=== PATIENT | male | born 1975 | race Hispanic/Latino ===

== ENCOUNTER 2019-07-16 16:26 | Emergency (ER) | payer OTHER, SELFPAY ==
--- NOTE | ~2019-07-16 | XR_ITS ---
XR chest 2V 07/16/2019 17:36 Indication: History of pulmonary embolism Procedure: PA and lateral views of the chest Comparison: Comparison to multiple prior studies sequentially, with oldest reviewed study dated 04/24. Findings: There is bibasilar airspace disease. Heart size normal. No pleural effusion or pneumothorax . No acute osseous abnormality. Impression: 1: Bibasilar airspace disease which may represent at pneumonia, atelectasis and/or edema. Reviewed, dictated and finalized at location A. Impression: 1: Bibasilar airspace disease which may represent at pneumonia, atelectasis and /or edema.
--- NOTE | ~2019-07-16 | CT_ITS ---
EXAMINATION: CTA chest PE protocol DATE: 07/16/2019 18:45 CDT INDICATION: Chest pain TECHNIQUE: Computed tomographic angiography (CTA) of the chest was performed with 100 mL Omnipaque-35 0 intravenous contrast. The dose-length product was 2248.02 mGy-cm. Maximum intensity projection 3D-r econstructions of the aorta and other arteries were constructed by the technologist on a separate wor kstation. Automated exposure control and iterative reconstruction technique were employed. COMPARISON: CT dated 11/05/2017 FINDINGS: The study is technically limited for evaluation of peripheral pulmonary arteries. No centra l pulmonary embolism is identified. Main pulmonary arteries are enlarged, consistent with pulmonary h ypertension. No significant pleural or pericardial effusion. Heart size is normal. Stable nonenlarged mediastinal lymph nodes, likely reactive. There are stable upper lobe nodules measuring 4 mm or less, predominantly upper lobe, likely benign. There is focal left lower lobe consolidation, images 109-113, atelectasis versus pneumonia. Mild emph ysema. There is dependent atelectasis. IMPRESSION: 1. Study technically limited by contrast bolus timing for evaluation of peripheral pulmonary arteries . No large central pulmonary embolism identified. 2: Stable small bilateral pulmonary nodules measuring 4 mm or less, likely benign. 3: Mild emphysema. 4: Focal left lower lobe consolidation may represent atelectasis or developing pneumonia. Reviewed, dictated and finalized at location A. IMPRESSION: 1. Study technically limited by contrast bolus timing for evaluation of periphe ral pulmonary arteries. No large central pulmonary embolism identified. 2: Stable small bilateral pulmonary nodules measuring 4 mm or less, likely flores gn. 3: Mild emphysema. 4: Focal left lower lobe consolidation may represent atelectasis or developing pneumonia.
[2019-07-16 16:33] VITALS: BP 156/107; PULSE 113; RESP 24; TEMP 37.6; O2SAT 87
--- NOTE | 2019-07-16 16:45 | ECG_ITS ---
Measurements Intervals [place] Rate: 106 P: 78 MS: 185 QRS: 29 QRSD: 123 T: 47 QT: 354 QTc: 472 Interpretive Statements SINUS TACHYCARDIA INTRAVENTRICULAR CONDUCTION DELAY DELAYED PRECORDIAL R/S TRANSITION ABNORMAL ECG Electronically Signed On 07-17-2019 7:40:44 CDT by Ben Nam D.O.
--- NOTE | 2019-07-16 16:47 | ED.SOB ---
HPI - SOB/Dyspnea General Chief Complaint: Shortness of Breath/Dyspnea Stated Complaint: more sob that usual Time Seen by Provider: 07/16/19 16:32 Source: patient Mode of arrival: ambulatory Limitations: no limitations History of Present Illness HPI Narrative: 43 yo morbidly obese male smoker with h/o COPD , PE, DVT on warfarin who presents with c/o worsening sob over the past week. Patient states he has chronic sob but it has worsening over the past couple of weeks. He also states his INR was been fluctuating even though he is taking his warfarin consistently. He has cough with some yellow phlegm . He denies fever , chills or sore throat. He reports constant chronic chest pain from GERD. He denies any change or worsening pain. He denies known contact with person with COVID. MD elicited complaint: shortness of breath, cough and chest pain (chronic) Pertinent past history: COPD, PE and DVT Onset (ago): week(s) Related Data Home Medications Medication Instructions Recorded Confirmed albuterol sulfate 90 mcg/actuation 2 puff INHALATION Q4H PRN gm 05/14/19 06/07/19 aerosol inhaler chlorthalidone 25 mg tablet 25 mg PO DAILY 05/14/19 06/07/19 lisinopril 20 mg tablet 20 mg PO DAILY 05/14/19 06/07/19 meloxicam 7.5 mg tablet 7.5 mg PO Q2D tablet 05/14/19 06/07/19 ranitidine HCl 150 mg capsule 150 mg PO BID cap 05/14/19 06/07/19 simvastatin 20 mg tablet 20 mg PO DAILY 05/14/19 06/07/19 warfarin 10 mg tablet 10 mg PO DAILY 05/14/19 06/07/19 Allergies Allergy/AdvReac Type Severity Reaction Status Date / Time No Known Drug Allergies Allergy Unknown Verified 03/25/18 20:37 Review of Systems Review of Systems: All systems reviewed & are unremarkable except as noted in HPI and below Constitutional: Constitutional: Denies chills, Denies fever(s) and Denies weakness ENT: Denies dizziness and Reports nasal congestion Cardiovascular: Cardiovascular: Reports chest pain and Denies rapid heart rate Respiratory: Respiratory: Reports cough and Reports dyspnea Gastrointestinal: Gastrointestinal: Denies abdominal pain and Denies nausea PMFSH Past Medical History Medical History Chest pain in adult Chronic obstructive pulmonary disease, unspecified Dyslipidemia Essential hypertension Lung nodule CORDELL on CPAP Other pulmonary embolism without acute cor pulmonale Pulmonary hypertension Pulmonary nodules Family History Family History (Updated 08/19/17 @ 09:01 by DOCTOR UNKNOWN) Father Diabetes mellitus Family history of diabetes mellitus in first degree relative Grandparent Family history of malignant neoplasm Other Cerebrovascular accident Family history of cardiovascular disease Family history of kidney disease Hypertension Social History Social History Smoking status: Current every day smoker Alcohol intake: never Gender identity (if verbalized by the patient): Male Exam Narrative: Exam Narrative: GENERAL: Well-appearing, well-nourished, and in no acute distress. morbidly obese HEAD: Normocephalic, atraumatic EYES: PERRLA and EOMI, THROAT:Mucous membranes moist, NECK: Supple, without lymphadenopathy or mass HEART: Regular rate and rhythm. No murmur heard. Normal peripheral pulses. ABDOMEN: Soft, nontender, nondistended, normal active bowel sounds. No masses. No rebound or guarding, No organomegaly. EXTREMITIES: No edema, normal strength with full range of motion. SKIN: Warm, dry, normal color without rash NEURO: Alert and oriented x3. CN 2-12 grossly intact. No focal deficits. PSYCH: Normal mood and affect. Resp: Effort & Inspection: normal respiratory effort Auscultation: wheezes scattered wheezes and diminished lung sounds diffuse Course Reevaluation(s) Reevaluation #1: Patient states he feels better. He is concerned he may have PE due to fluctuating INR. CTA to be performed. Date: 07/16/19 Time: 18:20 Aubrie
[2019-07-16 16:58] LABS: Basophils Absolute Auto 0.1 K/mm3 (0.0-0.1); Basophils Percent Auto 0.5 % (0.2-1.2); Eosinophils Absolute Auto 0.6 K/mm3 (0-0.3); Eosinophils Percent Auto 5.1 % (0-4.4); Hematocrit 56.3 % (42.0-52.0); Hemoglobin 19.1 g/dL (14.0-18.0); Immature Granulocyte Absolute 0.06 K/mm3 (0.00-0.031); Immature Granulocyte Percent A 0.6 % (0-0.5); Lymphocytes Absolute Auto 2.81 K/mm3 (0.9-3.2); Lymphocytes Percent Auto 26.3 % (18.3-44.2); Mean Corpuscular HGB Conc 33.9 g/dl (32-36); Mean Corpuscular Hemoglobin 32.7 pg (26-34); Mean Corpuscular Volume 96.4 fl (80-100); Mean Platelet Volume 10.5 fl (7.4-10.4); Monocytes Absolute Auto 0.9 K/mm3 (0.1-0.6); Monocytes Percent Auto 8.1 % (2.6-8.5); Neutrophils Absolute Auto 6.3 K/mm3 (1.3-6.7); Neutrophils Percent Auto 59.4 % (45.5-73.1); Platelet Count Result 138 k/mm3 (150-375); Red Blood Count 5.84 M/mm3 (4.6-6.20); Red Cell Distribution Width 13.5 % (11.5-14.5); White Blood Count 10.7 K/mm3 (4.5-10.0)
[2019-07-16 17:07] LABS: INR 3.8; Partial Thromboplastin Time 41.3 SECONDS (22.3-36.8); Prothrombin Time 36.5 Seconds (11.1-14.7)
[2019-07-16] MEDS: ALBUTEROL SULFATE (*SP) AEROSOL 1 PUFF 4 PUFF INHALATION (17:12)
[2019-07-16 17:14] LABS: Alveolar/Arterial O2 Gradient 37.3 mmHg; Base Excess ABG 2.4 mEq/l (+/-2.0); Fractional Inspired Oxygen 21 %; HCO3 ABG 28.5 mEq/l (22.0-26.0); Methemoglobin ABG 0.4 %THb (0-1.5); Oxygen Content ABG 21.7 %vol (16.0-22.0); Oxygen Saturation ABG 87.8 % (95.0-100.0); Oxyhemoglobin 81.2 % THb (90.0-100.0); PCO2 ABG 48.4 mmHg (35.0-45.0); PO2 ABG 54.5 mmHg (80.0-100.0); Reduced Hemoglobin 8.2 %THb (0-5.0); Total Hemoglobin 19.1 g/dL (12.0-18.0); pH ABG 7.388 (7.350-7.450)
[2019-07-16 17:16] LABS: Carboxyhemoglobin 10.2 % THb (0-2.0); Device ROOM AIR; Modified Allen's Test Pass; Site Drawn LEFT RADIAL
[2019-07-16 17:34] LABS: Alanine Aminotransferase 21 U/L (4-50); Albumin Level 4.2 g/dL (3.5-5.1); Alkaline Phosphatase 107 U/L (38-126); Aspartate Amino Transferase 26 U/L (17-59); Bilirubin,Total 0.6 mg/dL (0.2-1.3); Blood Urea Nitrogen 19 mg/dL (9-20); Carbon Dioxide 31 mmol/L (22-30); Chloride 105 mmol/L (98-107); Estimated CRCL calculation 256 ml/min; Estimated Glomerular Filt Rate > 60; Glucose 120 mg/dL (75-110); NT Pro B Type Natriuretic Pept 50 PG/ML (5-100); Sodium 144 mmol/L (137-145); Troponin I < 0.012 ng/mL (0.000-0.034)
--- NOTE | 2019-07-16 17:34 | PC.NURSE ---
Pt states he has had increased SOB x 1 wk. Pt states he has cough that he always has. Pt states he has hx of PE and DVT. Pt states he has COPD. Pt has increased work of breathing. Pt using accessory muscles. Pt tachypneic. Pt breathing started to get ease while getting triaged. Pt has call light in reach
[2019-07-16] MEDS: predniSONE 20 MG TABLET 60 MG PO (17:39)
[2019-07-16 17:41] LABS: Potassium 3.7 mmol/L (3.4-5.0)
[2019-07-16 18:43] VITALS: BP 158/95; PULSE 98; RESP 20; O2SAT 90
[2019-07-16 18:45] VITALS: PULSE 96; RESP 26; O2SAT 91
--- NOTE | 2019-07-16 19:11 | PC.NURSE ---
Assumed care of patient from KYLEIGH Elias. Pt ambulatory to restroom with a steady gait at this time.
[2019-07-16] MEDS: AZITHROMYCIN 250 MG TABLET 500 MG PO (19:22)
[2019-07-16 19:50] VITALS: BP 163/86; PULSE 99; RESP 20; O2SAT 99
== END 2019-07-16 19:53 | disposition home or self-care (01) ==
PROVIDERS: Emergency Provider General Practice; PCP Family Medicine
DX: J44.9 Chronic obstructive pulmonary disease, unspecified (principal); J18.1 Lobar pneumonia, unspecified organism; Z86.711 Personal history of pulmonary embolism; Z86.718 Personal history of other venous thrombosis and embolism; Z79.01 Long term (current) use of anticoagulants; R00.0 Tachycardia, unspecified; I45.9 Conduction disorder, unspecified; R91.1 Solitary pulmonary nodule
CPT/HCPCS: 36415; 36600; 71046; 71275; 80053; 82375; 82805; 83050; 83880; 84484; 85025; 85610; 85730; 87804; 93005; 96365; 99284; A9270; J0696; J7512; Q9967

== ENCOUNTER 2019-08-06 15:26 | Emergency (ER) | payer OTHER, SELFPAY ==
--- NOTE | ~2019-08-06 | CT_ITS ---
EXAMINATION: CTA chest PE protocol DATE: 08/06/2019 18:25 CDT INDICATION: Shortness of breath. Worsening cough. Pneumonia. TECHNIQUE: Computed tomographic angiography (CTA) of the chest was performed with 100 mL Omnipaque-35 0 intravenous contrast. The dose-length product was 1127.53 mGy-cm. Maximum intensity projection 3D-r econstructions of the aorta and other arteries were constructed by the technologist on a separate wor kstation. Automated exposure control and iterative reconstruction technique were employed. COMPARISON: CT dated 07/16/2019 FINDINGS: Study is technically adequate without evidence for pulmonary embolism. Left lower lobe subs egmental pulmonary artery evaluation limited by motion artifact. No significant pleural or pericardia l effusion. Heart size normal. No thoracic lymphadenopathy. No focal pneumonia. There is dependent at electasis. There is mild emphysema. No pneumothorax. 5 mm right upper lobe nodule, image 26, unchange d. 4-5 mm right upper lobe nodule, image 29, unchanged. There are smaller nodules in the upper lobes which are unchanged. IMPRESSION: 1. No evidence for pulmonary embolism. No acute cardiopulmonary disease. 2: Stable small pulmonary nodules measuring 5 mm or less, likely benign. Reviewed, dictated and finalized at location A.
[2019-08-06 15:32] VITALS: BP 154/90; PULSE 114; RESP 22; O2SAT 89
[2019-08-06 15:36] VITALS: PULSE 114
[2019-08-06 15:39] VITALS: O2SAT 94
--- NOTE | 2019-08-06 15:40 | PC.NURSE ---
pt placed on 2 lpm nasal cannula for o2 sat 89 % on room air
--- NOTE | 2019-08-06 16:08 | ED.GENADULT ---
HPI - General Adult General Chief complaint: Shortness of Breath/Dyspnea Stated complaint: dx with pneumonia 2 weeks ago Time Seen by Provider: 08/06/19 15:36 History of Present Illness HPI narrative: Patient is a 43 YO male with who comes to ED with c/o WILSON for the past 3 days. Admits to non-productive cough. No fevers. No change in chronic LE edema. No chest pain. Used inhaler this morning with no relief. Admits to previous history of similar symptoms due to PNA. Related Data Home Medications Medication Instructions Recorded Confirmed albuterol sulfate 90 mcg/actuation 2 puff INHALATION Q4H PRN gm 05/14/19 06/07/19 aerosol inhaler chlorthalidone 25 mg tablet 25 mg PO DAILY 05/14/19 06/07/19 lisinopril 20 mg tablet 20 mg PO DAILY 05/14/19 06/07/19 meloxicam 7.5 mg tablet 7.5 mg PO Q2D tablet 05/14/19 06/07/19 ranitidine HCl 150 mg capsule 150 mg PO BID cap 05/14/19 06/07/19 simvastatin 20 mg tablet 20 mg PO DAILY 05/14/19 06/07/19 warfarin 10 mg tablet 10 mg PO DAILY 05/14/19 06/07/19 Allergies Allergy/AdvReac Type Severity Reaction Status Date / Time No Known Allergies Allergy Verified 08/06/19 15:41 Review of Systems Review of Systems: Narrative: Does have hx of blood clots. On warfarin. recent INR was 1.2 per patient All systems reviewed & are unremarkable except as noted in HPI and below PMFSH Past Medical History Medical History Chest pain in adult Chronic obstructive pulmonary disease, unspecified Dyslipidemia Essential hypertension Lung nodule CORDELL on CPAP Other pulmonary embolism without acute cor pulmonale Pulmonary hypertension Pulmonary nodules Family History Family History Father Diabetes mellitus Family history of diabetes mellitus in first degree relative Grandparent Family history of malignant neoplasm Other Cerebrovascular accident Family history of cardiovascular disease Family history of kidney disease Hypertension Social History Social History Smoking status: Current every day smoker Alcohol intake: never Gender identity (if verbalized by the patient): Male Exam Const: General: no acute distress and alert Orientation/consciousness: patient oriented x3 HENMT: Head: normal to inspection Eyes: Pupils: Equal, round and reactive pupils present Neck: Neck: normal visual inspection Chest: Chest palpation & inspection: normal inspection of the chest Resp: Effort & Inspection: not labored Auscultation: wheezes and diminished lung sounds Cardio: Rate: tachycardic GI: GI Palp: No Soft to palpation and No Tenderness to palpation present (GI) Skin: General skin exam: normal color Neuro: General: patient oriented x3 and moves all extremities Extrem: General: edema (2+ PE in B LE) Course Vital Signs Vital signs: Vital Signs Pulse Rate 114 H 08/06/19 15:32 Respiratory Rate 22 H 08/06/19 15:32 Blood Pressure 154/90 H 08/06/19 15:32 Pulse Oximetry 89 L 08/06/19 15:32 Pulse Rate 87 08/06/19 17:49 Respiratory Rate 19 08/06/19 17:49 Blood Pressure 115/92 H 08/06/19 17:49 Pulse Oximetry 91 08/06/19 17:49 Medical Decision Making MDM Narrative Medical decision making narrative: 1911 Workup consistent with COPD exacerbation. Had low O2 sats on arrival and was placed on 2L NC. I took him off O2 for the last 20 mintues and monitored him and maintained O2 levels at or above 90. Patient requesting to be discharged which I feel is reasonable. Discussed strict return to ED precautions with worsening SOB, patient agreeable. Vital Signs Vital Signs: Vital Signs Pulse Rate 114 H 08/06/19 15:32 Respiratory Rate 22 H 08/06/19 15:32 Blood Pressure 154/90 H 08/06/19 15:32 Pulse Oximetry 89 L 08/06/19 15:32 Pulse Rate 87 08/06/19 17:49 Respiratory
--- NOTE | 2019-08-06 16:27 | ECG_ITS ---
Measurements Intervals [place] Rate: 96 P: 84 GA: 196 QRS: 39 QRSD: 123 T: 39 QT: 358 QTc: 453 Interpretive Statements SINUS RHYTHM INTRAVENTRICULAR CONDUCTION DELAY CANNOT RULE OUT SEPTAL INFARCT, AGE INDETERMINATE BASELINE WANDER- II, III ABNORMAL ECG Electronically Signed On 08-07-2019 7:11:20 CDT by Ben Nam D.O.
[2019-08-06] MEDS: methylPREDNISolone SOD SUCC 125 MG VIAL IV PUSH (16:39)
[2019-08-06 16:44] LABS: Basophils Percent Auto 0.4 % (0.2-1.2); Eosinophils Absolute Auto 0.8 K/mm3 (0-0.3); Eosinophils Percent Auto 8.1 % (0-4.4); Hematocrit 53.5 % (42.0-52.0); Hemoglobin 18.4 g/dL (14.0-18.0); Immature Granulocyte Absolute 0.06 K/mm3 (0.00-0.031); Immature Granulocyte Percent A 0.6 % (0-0.5); Lymphocytes Absolute Auto 1.85 K/mm3 (0.9-3.2); Lymphocytes Percent Auto 18.4 % (18.3-44.2); Mean Corpuscular HGB Conc 34.4 g/dl (32-36); Mean Corpuscular Hemoglobin 33.5 pg (26-34); Mean Corpuscular Volume 97.4 fl (80-100); Monocytes Absolute Auto 0.7 K/mm3 (0.1-0.6); Monocytes Percent Auto 6.7 % (2.6-8.5); Neutrophils Absolute Auto 6.6 K/mm3 (1.3-6.7); Neutrophils Percent Auto 65.8 % (45.5-73.1); Platelet Count Result 145 k/mm3 (150-375); Red Blood Count 5.49 M/mm3 (4.6-6.20); Red Cell Distribution Width 13.9 % (11.5-14.5)
[2019-08-06] MEDS: ALBUTEROL SULFATE NEB 2.5 MG/0.5 ML INH 5 MG INHALATION (16:48)
[2019-08-06 16:51] VITALS: PULSE 98; RESP 20
[2019-08-06 16:59] LABS: Alanine Aminotransferase 29 U/L (4-50); Albumin Level 4.1 g/dL (3.5-5.1); Alkaline Phosphatase 100 U/L (38-126); Aspartate Amino Transferase 24 U/L (17-59); Bilirubin,Total 0.9 mg/dL (0.2-1.3); Blood Urea Nitrogen 20 mg/dL (9-20); Calcium 9.2 mg/dL (8.4-10.2); Carbon Dioxide 32 mmol/L (22-30); Chloride 101 mmol/L (98-107); Estimated CRCL calculation 257 ml/min; Estimated Glomerular Filt Rate > 60; Glucose 112 mg/dL (75-110); Potassium 3.8 mmol/L (3.4-5.0); Sodium 140 mmol/L (137-145)
[2019-08-06 17:06] LABS: NT Pro B Type Natriuretic Pept 40 PG/ML (5-100)
[2019-08-06 17:49] VITALS: BP 115/92; PULSE 87; RESP 19; O2SAT 91
== END 2019-08-06 19:48 | disposition home or self-care (01) ==
PROVIDERS: Physician Assistant Medical; PCP Family Medicine
DX: J44.1 Chronic obstructive pulmonary disease with (acute) exacerbation (principal); E78.5 Hyperlipidemia, unspecified; I10 Essential (primary) hypertension; G47.33 Obstructive sleep apnea (adult) (pediatric); I27.20 Pulmonary hypertension, unspecified; F17.200 Nicotine dependence, unspecified, uncomplicated; Z79.01 Long term (current) use of anticoagulants; I45.9 Conduction disorder, unspecified; R94.31 Abnormal electrocardiogram [ECG] [EKG]
CPT/HCPCS: 36415; 71275; 80053; 83880; 85025; 93005; 94640; 96374; 99284; J2930; Q9967

== ENCOUNTER 2019-12-31 12:54 | Outpatient (CLI) | payer OTHER, SELFPAY ==
[2019-12-31] VITALS (7 sets, daily range): PULSE 118–138; O2SAT 84–91
--- NOTE | 2019-12-31 13:28 | HOMEO2EVAL ---
Home Oxygen Evaluation RC: Home Oxygen (O2) Evaluation Start: 12/31/19 13:24 Freq: Status: Active Protocol: RPE Activity Type Activity Date Activity User E-Sign Co-Sign Detail Recorded Client Recorded Date Recorded By Document 12/31/19 12:40 [email or web address] 12/31/19 13:28 DJO Document 12/31/19 12:45 [email or web address] [email or web address] 12/31/19 13:28 DJO Document 12/31/19 12:50 [email or web address] [email or web address] 12/31/19 13:28 DJO Document 12/31/19 12:55 [email or web address] [email or web address] 12/31/19 13:28 DJO Document 12/31/19 13:00 [email or web address] [email or web address] 12/31/19 13:28 DJO Document 12/31/19 13:05 [email or web address] [email or web address] 12/31/19 13:28 DJO Document 12/31/19 13:15 [email or web address] [email or web address] 12/31/19 13:28 DJO 12/31/19 12/31/19 12/31/19 12:40 12:45 12:50 Home O2 Evaluation Test Phase Resting Exercise Exercise Oxygen Delivery Room Air Room Air Nasal Cannula Oxygen Flow Rate (L/min) 1 Pulse Oximetry (90-100 %) 91 84 L 85 L Pulse Rate (60-100 beats/min) 118 H 135 H 134 H Activity Tolerance Ambulation Distance (feet) Treatment Charges O2 Evaluation 12/31/19 12/31/19 12/31/19 12:55 13:00 13:05 Home O2 Evaluation Test Phase Exercise Exercise Exercise Oxygen Delivery Nasal Cannula Nasal Cannula Nasal Cannula Oxygen Flow Rate (L/min) 2 3 4 Pulse Oximetry (90-100 %) 85 L 87 L 90 Pulse Rate (60-100 beats/min) 132 H 138 H 129 H Activity Tolerance Fair Ambulation Distance (feet) 1,000 Treatment Charges 12/31/19 13:15 Home O2 Evaluation Test Phase Resting Oxygen Delivery Room Air Oxygen Flow Rate (L/min) Pulse Oximetry (90-100 %) 91 Pulse Rate (60-100 beats/min) 120 H Activity Tolerance Ambulation Distance (feet) Treatment Charges
== END 2019-12-31 12:55 | disposition home or self-care (01) ==
LOC: ANHPFT 12:55
PROVIDERS: PCP Family Medicine; Visit Provider Internal Medicine Critical Care Medicine
DX: R09.02 Hypoxemia (principal)
CPT/HCPCS: 94618

== ENCOUNTER 2020-03-03 02:47 | Emergency (ER) | payer OTHER, SELFPAY ==
[2020-03-03] VITALS (9 sets, daily range): BP systolic 111–141; BP diastolic 49–108; PULSE 101–139; RESP 21–28; TEMP 36.9; O2SAT 90–92
--- NOTE | ~2020-03-03 | XR_ITS ---
XR chest 1V portable DATE: 03/03/2020 03:30 INDICATION: Palpitations TECHNIQUE: Portable upright AP views on 03/03/2020 at 1530 and 1531 hours COMPARISON: 07/15/2021 view chest 08/06/2019 CT pulmonary scan FINDINGS: Heart size appears within normal limits. Bilateral hyperinflation. No pulmonary infiltrate or consolidation, pleural effusion or pulmonary vas cular congestion or pneumothorax is detected. IMPRESSION: No active disease Reviewed, dictated and finalized at location A. MEDICAL AIDE IMPRESSION: No active disease
[2020-03-03] MEDS: ADENOSINE IV SOLN 6 MG/2 ML VIAL IV PUSH (03:17)
[2020-03-03 03:24] LABS: Basophils Percent Auto 0.4 % (0.2-1.2); Eosinophils Absolute Auto 0.3 K/mm3 (0-0.3); Eosinophils Percent Auto 3.2 % (0-4.4); Hematocrit 55.6 % (42.0-52.0); Hemoglobin 20.6 g/dL (14.0-18.0); Immature Granulocyte Absolute 0.04 K/mm3 (0.00-0.031); Immature Granulocyte Percent A 0.5 % (0-0.5); Lymphocytes Absolute Auto 2.09 K/mm3 (0.9-3.2); Lymphocytes Percent Auto 25.9 % (18.3-44.2); Mean Corpuscular HGB Conc 37.1 g/dl (32-36); Mean Corpuscular Hemoglobin 34.8 pg (26-34); Mean Corpuscular Volume 93.9 fl (80-100); Mean Platelet Volume 10.5 fl (7.4-10.4); Monocytes Absolute Auto 0.8 K/mm3 (0.1-0.6); Monocytes Percent Auto 9.7 % (2.6-8.5); Neutrophils Absolute Auto 4.9 K/mm3 (1.3-6.7); Neutrophils Percent Auto 60.3 % (45.5-73.1); Platelet Count Result 157 k/mm3 (150-375); Red Blood Count 5.92 M/mm3 (4.6-6.20); Red Cell Distribution Width 14.3 % (11.5-14.5); White Blood Count 8.1 K/mm3 (4.5-10.0)
--- NOTE | 2020-03-03 03:33 | ED.GENADULT ---
HPI - General Adult General Chief complaint: Arrhythmia/Palpitations Stated complaint: elvated HR History of Present Illness HPI narrative: Patient's 44-year-old gentleman who presents the emergency department with chief complaint of palpitations. Patient reports he has history of COPD and was over at a family member's house today. Patient states this evening he noticed his heart started beating fast and it would not slow down. Patient denies chest pain denies shortness of breath denies focal neurological deficit. Patient denies syncope. Related Data Home Medications Medication Instructions Recorded Confirmed chlorthalidone 25 mg tablet 25 mg PO DAILY 05/14/19 01/25/20 lisinopril 20 mg tablet 20 mg PO DAILY 05/14/19 01/25/20 meloxicam 7.5 mg tablet 7.5 mg PO Q2D tablet 05/14/19 01/25/20 simvastatin 20 mg tablet 20 mg PO DAILY 05/14/19 01/25/20 warfarin 10 mg tablet 10 mg PO DAILY 05/14/19 01/25/20 ipratropium 0.5 mg-albuterol 3 mg 3 ml INHALATION QID PRN 10/01/19 01/25/20 (2.5 mg base)/3 mL nebulization soln omeprazole 20 mg capsule,delayed 20 mg PO DAILY 12/31/19 01/25/20 release Allergies Allergy/AdvReac Type Severity Reaction Status Date / Time No Known Allergies Allergy Verified 03/03/20 03:06 Review of Systems Review of Systems: Narrative: CONSTITUTIONAL: Denies fever, chills, or sweats. EYES: Denies visual changes, redness, or discharge. ENT: Denies rhinorrhea, congestion, sore throat, or otalgia. CARDIOVASCULAR: Denies chest pain, palpitations, or edema. RESPIRATORY: Denies cough or dyspnea. GASTROINTESTINAL: Denies abdominal pain, nausea, vomiting, or diarrhea. GENITOURINARY: Denies dysuria or hematuria. SKIN: Denies rash or itching. MUSCULOSKELETAL: Denies back pain, joint pain, or myalgia. NEUROLOGIC: Denies headache, numbness, or weakness. PSYCHIATRIC: Denies anxiety or depression. A 10 system review of systems was completed on the patient and is negative except for what is stated in the HPI. Nursing and ancillary documentation was reviewed. [facility] Past Medical History Medical History Chest pain in adult Chronic obstructive pulmonary disease, unspecified Dyslipidemia Essential hypertension Lung nodule CORDELL on CPAP Other pulmonary embolism without acute cor pulmonale Pulmonary hypertension Pulmonary nodules Family History Family History Father Diabetes mellitus Family history of diabetes mellitus in first degree relative Grandparent Family history of malignant neoplasm Other Cerebrovascular accident Family history of cardiovascular disease Family history of kidney disease Hypertension Social History Social History Smoking packs per day: 1 Smoking cigarettes per day: 20.0 Years smoked: 15 Smoking pack-years: 15.00 Smoking status: Current every day smoker Alcohol intake: never Gender identity (if verbalized by the patient): Male Sexual Orientation (if Verbalized by the Patient): Straight or Heterosexual Exam Narrative: Exam Narrative: GENERAL: Well-appearing, well-nourished, and in no acute distress. HEAD: Normocephalic, atraumatic. EYES: PERRLA and EOMI. ENT: Nares clear, no rhinorrhea or epistaxis. Mucous membranes moist. NECK: Supple. CHEST: Clear to auscultation. No respiratory distress. HEART: Regular rate and rhythm. No murmur heard. Normal peripheral pulses. ABDOMEN: Soft, nontender, nondistended, normal active bowel sounds. EXTREMITIES: Normal range of motion. No edema. SKIN: Warm, dry, no rash. NEURO: No focal deficits. Alert and oriented x3. PSYCH: Normal mood and affect. Course Course Emergency Course: Initial EKG showed a supraventricular tachycardia with a rate of [address] elevation or ST depression Given the patient showed the possibility
[2020-03-03 03:35] LABS: INR 2.5; Prothrombin Time 27.4 Seconds (11.1-14.7)
[2020-03-03 03:37] LABS: Alanine Aminotransferase 25 U/L (4-50); Albumin Level 3.9 g/dL (3.5-5.1); Alkaline Phosphatase 117 U/L (38-126); Anion Gap 8 mmol/L (8-16); Aspartate Amino Transferase 28 U/L (17-59); Bilirubin,Total 0.5 mg/dL (0.2-1.3); Blood Urea Nitrogen 21 mg/dL (9-20); Calcium 8.9 mg/dL (8.4-10.2); Carbon Dioxide 29 mmol/L (22-30); Chloride 104 mmol/L (98-107); Estimated CRCL calculation 203 ml/min; Estimated Glomerular Filt Rate > 60; Glucose 121 mg/dL (75-110); Sodium 141 mmol/L (137-145)
--- NOTE | 2020-03-03 03:52 | ECG_ITS ---
Measurements Intervals [place] Rate: 136 P: [place]: 0 QRS: 181 QRSD: 106 T: 39 QT: 304 QTc: 458 Interpretive Statements SUPRAVENTRICULAR TACHYCARDIA, CONSIDER ATRIAL TACHYCARDIA INCOMPLETE RIGHT BUNDLE BRANCH BLOCK BORDERLINE R WAVE PROGRESSION, ANTERIOR LEADS BASELINE ARTIFACT- I, II, III, AVL, AVF ABNORMAL ECG Electronically Signed On 03-03-2020 8:09:27 CHIEF CUSTOMER OFFICER by Ben Nam D.O.
--- NOTE | 2020-03-03 03:53 | PC.NURSE ---
I did not obtain the EKG on this pt. but documented the intervention.
[2020-03-03 04:09] LABS: Magnesium 2.1 mg/dL (1.6-2.3); NT Pro B Type Natriuretic Pept 66 PG/ML (5-100); Troponin I < 0.012 ng/mL (0.000-0.034)
== END 2020-03-03 04:50 | disposition home or self-care (01) ==
PROVIDERS: Emergency Provider Emergency Medicine; PCP Family Medicine
DX: I47.1 Supraventricular tachycardia (principal); J44.9 Chronic obstructive pulmonary disease, unspecified; E78.5 Hyperlipidemia, unspecified; I10 Essential (primary) hypertension; G47.33 Obstructive sleep apnea (adult) (pediatric); Z86.711 Personal history of pulmonary embolism; I27.20 Pulmonary hypertension, unspecified; Z79.01 Long term (current) use of anticoagulants; I45.10 Unspecified right bundle-branch block; R94.31 Abnormal electrocardiogram [ECG] [EKG]
CPT/HCPCS: 36415; 71045; 80053; 83735; 83880; 84484; 85025; 85610; 85730; 93005; 96374; 99284; J0153

== ENCOUNTER 2020-09-12 23:32 | Emergency (ER) | payer OTHER, SELFPAY ==
--- NOTE | ~2020-09-12 | XR_ITS ---
EXAMINATION: XR chest 2V EXAM DATE: 09/13/2020 00:20 INDICATION: chest pain unspecified, sob, hx of 4 PE'S(left side). TECHNIQUE: Frontal and lateral projections of the chest obtained and reviewed. Comparison is made to prior examination from 03/03/2020. FINDINGS: The cardiac silhouette is enlarged. There is pulmonary vascular congestion. Possible mild p ulmonary edema. No confluent consolidation, pneumothorax or pleural effusion suspected. There are no osseous abnormalities identified. IMPRESSION: Possible mild CHF exacerbation. Reviewed, dictated and finalized at location A.
[2020-09-12 23:31] VITALS: BP 96/65; PULSE 137; RESP 20; TEMP 36.7; O2SAT 95
[2020-09-12] MEDS: SODIUM CHLORIDE 0.9% IV 1,000 ML 999 ML (23:44)
--- NOTE | 2020-09-12 23:51 | ECG_ITS ---
Measurements Intervals [place] Rate: 135 P: 260 MS: 139 QRS: -11 QRSD: 115 T: 26 QT: 310 QTc: 465 Interpretive Statements SUPRAVENTRICULAR TACHYCARDIA INCOMPLETE RIGHT BUNDLE BRANCH BLOCK BASELINE ARTIFACT- II, III, AVF, V1, V3-V6 ABNORMAL ECG Electronically Signed On 09-13-2020 6:37:33 CDT by Ben Nam D.O.
[2020-09-12] MEDS: ASPIRIN 81 MG CHEWABLE TABLET 324 MG PO (23:58)
--- NOTE | 2020-09-13 | ED.GENADULT ---
HPI - General Adult General Chief complaint: Chest Pain Stated complaint: rapid heart rate Time Seen by Provider: 09/12/20 23:39 Source: patient History of Present Illness HPI narrative: Patient is a 44 y/o male complaining of heart palpitation starting this morning around 11:00 AM. He states that he did valsalva maneuver and his heart rate went down. However his palpitation started again about 1 1/2 hour ago. He state that his heart is beat fast. When he checked himself with a pulse ox, it showed his heart rate was 149. He has some chronic SOB due to COPD. He denies chest pain. Related Data Home Medications Medication Instructions Recorded Confirmed chlorthalidone 25 mg tablet 25 mg PO DAILY 05/14/19 07/31/20 lisinopril 20 mg tablet 20 mg PO DAILY 05/14/19 07/31/20 meloxicam 7.5 mg tablet 7.5 mg PO Q2D tablet 05/14/19 07/31/20 simvastatin 20 mg tablet 20 mg PO DAILY 05/14/19 07/31/20 warfarin 10 mg tablet 10 mg PO DAILY 05/14/19 07/31/20 omeprazole 20 mg capsule,delayed 20 mg PO DAILY 12/31/19 07/31/20 release Allergies Allergy/AdvReac Type Severity Reaction Status Date / Time No Known Allergies Allergy Verified 07/31/20 10:15 Review of Systems Constitutional: Constitutional: Denies chills, Denies fever(s), Denies headache(s) and Denies weakness Eyes: Eyes: Denies blurry vision ENT: Denies headache(s) and Denies neck pain Cardiovascular: Cardiovascular: Denies chest pain, Reports rapid heart rate and Reports dyspnea Respiratory: Respiratory: Denies cough and Reports dyspnea Gastrointestinal: Gastrointestinal: Denies abdominal pain, Denies diarrhea, Denies nausea and Denies vomiting Genitourinary: Genitourinary: Denies hematuria and Denies dysuria Musculoskeletal: Musculoskeletal: Denies back pain and Denies neck pain Neurologic: Denies headache(s) and Denies weakness PMFSH Past Medical History Medical History Chest pain in adult Chronic obstructive pulmonary disease, unspecified Dyslipidemia Essential hypertension Lung nodule CORDELL on CPAP Other pulmonary embolism without acute cor pulmonale Pulmonary hypertension Pulmonary nodules Family History Family History Father Diabetes mellitus Family history of diabetes mellitus in first degree relative Grandparent Family history of malignant neoplasm Other Cerebrovascular accident Family history of cardiovascular disease Family history of kidney disease Hypertension Social History Social History Smoking packs per day: 1 Smoking cigarettes per day: 20.0 Years smoked: 15 Smoking pack-years: 15.00 Smoking status: Current every day smoker Alcohol intake: never Gender identity (if verbalized by the patient): Male Exam Const: General: no acute distress and well developed Nutritional Appearance: obese Orientation/consciousness: oriented to person, oriented to place, oriented to time and patient oriented x3 HENMT: Head: normocephalic Ears: external ears normal General nose exam: Normal external nose present Eyes: General: appearance normal, both eyes and all related structures Conjunctivae: conjunctivae normal Neck: Neck: normal visual inspection and full ROM Chest: Chest palpation & inspection: normal inspection of the chest and no tenderness Resp: Effort & Inspection: normal respiratory effort Auscultation: clear to auscultation bilaterally Cardio: Rate: tachycardic Rhythm: regular rhythm GI: GI Palp: No abdominal tenderness and Yes Soft to palpation Skin: General skin exam: normal color and turgor normal Neuro: General: oriented to person, oriented to place, oriented to time and patient oriented x3 Cognition (Neuro): normal cognition Extrem: General: normal to inspection, full ROM and no pedal edema Psych: Appearance: grossly normal Mental Statu
[2020-09-13 00:31] LABS: Basophils Percent Auto 0.1 % (0.2-1.2); Eosinophils Absolute Auto 0.1 K/mm3 (0-0.3); Eosinophils Percent Auto 1.4 % (0-4.4); Hematocrit 51.3 % (42.0-52.0); Hemoglobin 17.4 g/dL (14.0-18.0); Immature Granulocyte Absolute 0.04 K/mm3 (0.00-0.031); Immature Granulocyte Percent A 0.5 % (0-0.5); Immature Platelet Fraction Pct 4.1 % (0.9-11.2); Lymphocytes Absolute Auto 0.97 K/mm3 (0.9-3.2); Lymphocytes Percent Auto 12.6 % (18.3-44.2); Mean Corpuscular HGB Conc 33.9 g/dl (32-36); Mean Corpuscular Hemoglobin 32.8 pg (26-34); Mean Corpuscular Volume 96.8 fl (80-100); Mean Platelet Volume 10.5 fl (7.4-10.4); Monocytes Absolute Auto 0.4 K/mm3 (0.1-0.6); Monocytes Percent Auto 5.7 % (2.6-8.5); Neutrophils Absolute Auto 6.1 K/mm3 (1.3-6.7); Neutrophils Percent Auto 79.7 % (45.5-73.1); Platelet Count Result 122 k/mm3 (150-375); Red Cell Distribution Width 12.1 % (11.5-14.5); White Blood Count 7.7 K/mm3 (4.5-10.0)
[2020-09-13 00:37] LABS: Anion Gap 8 mmol/L (8-16); Blood Urea Nitrogen 23 mg/dL (9-20); Calcium 8.7 mg/dL (8.4-10.2); Carbon Dioxide 26 mmol/L (22-30); Chloride 104 mmol/L (98-107); Estimated CRCL calculation 221 ml/min; Estimated Glomerular Filt Rate > 60; Glucose 131 mg/dL (75-110); Potassium 3.6 mmol/L (3.4-5.0); Sodium 138 mmol/L (137-145)
--- NOTE | 2020-09-13 00:42 | ECG_ITS ---
Measurements Intervals [place] Rate: 99 P: 62 ND: 199 QRS: 24 QRSD: 112 T: 39 QT: 355 QTc: 456 Interpretive Statements SINUS RHYTHM INCOMPLETE RIGHT BUNDLE BRANCH BLOCK DELAYED PRECORDIAL R/S TRANSITION BASELINE ARTIFACT- II, III, AVR, AVF, V1, V3-V6 BORDERLINE ECG Electronically Signed On 09-14-2020 19:53:31 CDT by Ben Nam D.O.
[2020-09-13] MEDS: ADENOSINE IV SOLN 6 MG/2 ML VIAL IV PUSH (00:44)
--- NOTE | 2020-09-13 00:44 | PC.NURSE ---
pt given meds as ordered, MD at bedside, pt converted to NSR. pascual well.
[2020-09-13 00:49] LABS: Troponin I < 0.012 ng/mL (0.000-0.034)
[2020-09-13 00:50] LABS: INR 1.1; Prothrombin Time 14.7 Seconds (11.1-14.7)
[2020-09-13 00:51] LABS: Partial Thromboplastin Time 28.1 SECONDS (22.3-36.8)
[2020-09-13 01:41] VITALS: BP 108/73; PULSE 99; RESP 20; TEMP 36.3; O2SAT 96
== END 2020-09-13 01:42 | disposition home or self-care (01) ==
PROVIDERS: Emergency Provider Emergency Medicine; PCP Family Medicine
DX: I47.1 Supraventricular tachycardia (principal); F17.210 Nicotine dependence, cigarettes, uncomplicated; J44.9 Chronic obstructive pulmonary disease, unspecified; I10 Essential (primary) hypertension; E78.5 Hyperlipidemia, unspecified; G47.30 Sleep apnea, unspecified
CPT/HCPCS: 36415; 71046; 80048; 84484; 85025; 85055; 85610; 85730; 93005; 96361; 96374; 99284; A9270; J0153; J7030

== ENCOUNTER 2020-09-13 03:45 | Emergency (ER) | payer OTHER, SELFPAY ==
[2020-09-13] VITALS (76 sets, daily range): BP systolic 97–149; BP diastolic 59–87; PULSE 74–128; RESP 17–26; TEMP 36.7; O2SAT 92–98
--- NOTE | 2020-09-13 03:51 | ECG_ITS ---
Measurements Intervals [place] Rate: 136 P: [place]: 0 QRS: -46 QRSD: 111 T: 35 QT: 318 QTc: 479 Interpretive Statements SUPRAVENTRICULAR TACHYCARDIA INCOMPLETE RIGHT BUNDLE BRANCH BLOCK POOR R WAVE PROGRESSION, ANTERIOR LEADS BASELINE ARTIFACT- I, II, III, AVR, AVF, V1-V6 ABNORMAL ECG Electronically Signed On 10-06-2020 12:52:26 CDT by Ben Nam D.O.
[2020-09-13] MEDS: ADENOSINE IV SOLN 6 MG/2 ML VIAL IV PUSH (04:22)
--- NOTE | 2020-09-13 04:26 | ED.ARRPALP ---
HPI - Arrhythmia/Palpitations General Chief Complaint: Arrhythmia/Palpitations <Radha Yepez MD - Last Filed: 09/13/20 19:09> Stated Complaint: rapid heart rate <Radha Yepez MD - Last Filed: 09/13/20 19:09> Time Seen by Provider: 09/13/20 03:49 <Radha Yepez MD - Last Filed: 09/13/20 19:09> Source: patient <Radha Yepez MD - Last Filed: 09/13/20 19:09> Mode of arrival: ambulatory <Radha Yepez MD - Last Filed: 09/13/20 19:09> Limitations: no limitations <Radha Yepez MD - Last Filed: 09/13/20 19:09> History of Present Illness HPI narrative: This is a morbidly obese male with history of COPD, oxygen dependence, hypertension, SVT who presents for evaluation of an elevated heart rate. He was discharged from [place] ED approximately 2 hours ago after treatment of SVT. Starting yesterday he noticed that his heart rate was elevated so he attempted vagal maneuvers. When his heart rate did not improve he came to ER. He was given adenosine 6 mg during his previous ED visit [facility]. His heart rhythm converted back to sinus so he was discharged home. He states he went home and he was playing video games when his heart rate increased again. He denies associated chest pain, sob, diaphoresis or dizziness. He also denies fever, chills, nausea or vomiting. He takes warfarin 10 mg for history of PE. He also takes metoprolol 25 mg XL for heart rate control. <Radha Yepez MD - Last Filed: 09/13/20 19:09> Related Data Home Medications: Home Medications Medication Instructions Recorded Confirmed chlorthalidone 25 mg tablet 25 mg PO DAILY 05/14/19 07/31/20 lisinopril 20 mg tablet 20 mg PO DAILY 05/14/19 07/31/20 meloxicam 7.5 mg tablet 7.5 mg PO Q2D tablet 05/14/19 07/31/20 simvastatin 20 mg tablet 20 mg PO DAILY 05/14/19 07/31/20 warfarin 10 mg tablet 10 mg PO DAILY 05/14/19 07/31/20 omeprazole 20 mg capsule,delayed 20 mg PO DAILY 12/31/19 07/31/20 release <Radha Yepez MD - Last Filed: 09/13/20 19:09> Allergies/Adverse Reactions: Allergies Allergy/AdvReac Type Severity Reaction Status Date / Time No Known Allergies Allergy Verified 09/13/20 03:46 <Radha Yepez MD - Last Filed: 09/13/20 19:09> Review of Systems Review of Systems: All systems reviewed & are unremarkable except as noted in HPI and below <Radha Yepez MD - Last Filed: 09/13/20 19:09> [facility] Past Medical History Medical History: Medical History Chest pain in adult Chronic obstructive pulmonary disease, unspecified Dyslipidemia Essential hypertension Lung nodule CORDELL on CPAP Other pulmonary embolism without acute cor pulmonale Pulmonary hypertension Pulmonary nodules <Radha Yepez MD - Last Filed: 09/13/20 19:09> Family History Family History: Family History Father Diabetes mellitus Family history of diabetes mellitus in first degree relative Grandparent Family history of malignant neoplasm Other Cerebrovascular accident Family history of cardiovascular disease Family history of kidney disease Hypertension <Rahda Yepez MD - Last Filed: 09/13/20 19:09> Social History Social History: Social History Smoking packs per day: 1 Smoking cigarettes per day: 20.0 Years smoked: 15 Smoking pack-years: 15.00 Smoking status: Current every day smoker Alcohol intake: never Gender identity (if verbalized by the patient): Male <Radha Yepez MD - Last Filed: 09/13/20 19:09> Exam Const: General: no acute distress and alert <Radha Yepez MD - Last Filed: 09/13/20 19:09> Nutritional Appearance: obese <Radha Yepez MD - Last Filed: 09/13/20 19:09> Orientation/consciousness: patient oriented x3 <Radha Yepez MD - Last Filed:
[2020-09-13] MEDS: METOPROLOL SUCCINATE EXT REL 25 MG TABCR PO (05:12)
[2020-09-13] MEDS: ADENOSINE IV SOLN 6 MG/2 ML VIAL 12 MG IV PUSH (05:35)
[2020-09-13] MEDS: SODIUM CHLORIDE 0.9% IV 500 ML 999 ML IV CONT (05:35)
[2020-09-13] MEDS: dilTIAZem HCl INJ 25 MG/5 ML VIAL 15 MG IV PUSH (05:46)
[2020-09-13 05:56] LABS: Basophils Percent Auto 0.3 % (0.2-1.2); Eosinophils Absolute Auto 0.1 K/mm3 (0-0.3); Eosinophils Percent Auto 1.5 % (0-4.4); Hematocrit 51.5 % (42.0-52.0); Hemoglobin 17.3 g/dL (14.0-18.0); Immature Granulocyte Absolute 0.04 K/mm3 (0.00-0.031); Immature Granulocyte Percent A 0.6 % (0-0.5); Immature Platelet Fraction Pct 5.6 % (0.9-11.2); Lymphocytes Absolute Auto 1.32 K/mm3 (0.9-3.2); Lymphocytes Percent Auto 18.4 % (18.3-44.2); Mean Corpuscular HGB Conc 33.6 g/dl (32-36); Mean Corpuscular Hemoglobin 32.6 pg (26-34); Mean Corpuscular Volume 97.2 fl (80-100); Mean Platelet Volume 11.4 fl (7.4-10.4); Monocytes Absolute Auto 0.5 K/mm3 (0.1-0.6); Monocytes Percent Auto 6.4 % (2.6-8.5); Neutrophils Absolute Auto 5.2 K/mm3 (1.3-6.7); Neutrophils Percent Auto 72.8 % (45.5-73.1); Platelet Count Result 131 k/mm3 (150-375); Red Cell Distribution Width 12.3 % (11.5-14.5); White Blood Count 7.2 K/mm3 (4.5-10.0)
[2020-09-13 05:59] LABS: Alanine Aminotransferase 24 U/L (4-50); Albumin Level 3.8 g/dL (3.5-5.1); Alkaline Phosphatase 76 U/L (38-126); Anion Gap 10 mmol/L (8-16); Aspartate Amino Transferase 26 U/L (17-59); Bilirubin,Total 0.7 mg/dL (0.2-1.3); Blood Urea Nitrogen 22 mg/dL (9-20); Calcium 8.6 mg/dL (8.4-10.2); Carbon Dioxide 29 mmol/L (22-30); Chloride 101 mmol/L (98-107); Estimated CRCL calculation 193 ml/min; Estimated Glomerular Filt Rate > 60; Glucose 143 mg/dL (75-110); Potassium 3.4 mmol/L (3.4-5.0); Sodium 140 mmol/L (137-145)
[2020-09-13 06:10] LABS: Troponin I 0.013 ng/mL (0.000-0.034)
--- NOTE | 2020-09-13 06:56 | PC.NURSE ---
called [facility] to request transport. They will call back with an ETA but not within the next two hours.
[2020-09-13] MEDS: ENOXAPARIN 100 MG/ML SYRINGE SUB-Q (12:10)
[2020-09-13] MEDS: ENOXAPARIN 120 MG/0.8 ML SYRINGE 110 MG SUB-Q (12:10)
== END 2020-09-13 19:12 | disposition short-term general hospital (02) ==
PROVIDERS: Emergency Provider General Practice; PCP Family Medicine
DX: I47.1 Supraventricular tachycardia (principal); J44.9 Chronic obstructive pulmonary disease, unspecified; I10 Essential (primary) hypertension; E78.5 Hyperlipidemia, unspecified; G47.33 Obstructive sleep apnea (adult) (pediatric); I27.20 Pulmonary hypertension, unspecified; Z99.81 Dependence on supplemental oxygen; Z86.711 Personal history of pulmonary embolism; Z79.01 Long term (current) use of anticoagulants; F17.210 Nicotine dependence, cigarettes, uncomplicated
CPT/HCPCS: 36415; 80053; 84484; 85025; 85055; 93005; 96361; 96372; 96374; 96375; 96376; 99285; A9270; J0153; J1650; J7040

== ENCOUNTER → 2020-11-18 02:00 | Outpatient (CLI) | payer OTHER, SELFPAY ==
[2020-11-18 17:52] LABS: SARS-CoV-2 RNA PCR Negative
== END ==
PROVIDERS: PCP Family Medicine; Visit Provider Family Medicine
DX: R68.89 Other general symptoms and signs (principal); Z20.822 Contact with and (suspected) exposure to COVID-19
CPT/HCPCS: C9803; U0003; U0005

== ENCOUNTER 2020-11-28 07:17 | Observation (INO) | payer OTHER, SELFPAY ==
[2020-11-28] VITALS (22 sets, daily range): BP systolic 98–132; BP diastolic 55–90; PULSE 62–141; RESP 16–26; TEMP 36.5–36.8; O2SAT 93–100; BMI 67.9; BMI 68.5
--- NOTE | ~2020-11-28 | XR_ITS ---
EXAMINATION: XR chest 1V portable EXAM DATE: 11/28/2020 07:58 INDICATION: Arrhythmia, history of palpitations and SVT. TECHNIQUE: Portable AP frontal chest x-ray was obtained. Comparison is made to prior examination from 09/12/2020. FINDINGS: There is mild cardiomegaly. There is pulmonary vascular congestion. No confluent consolidat ion, pneumothorax or pleural effusion suspected. There are no osseous abnormalities identified. IMPRESSION: Mild cardiomegaly and pulmonary vascular congestion. Reviewed, dictated and finalized at location A.
--- NOTE | 2020-11-28 07:19 | ECG_ITS ---
Measurements Intervals [place] Rate: 137 P: MD: 0 QRS: 253 QRSD: 158 T: 235 QT: 357 QTc: 540 Interpretive Statements SUPRAVENTRICULAR TACHYCARDIA VENTRICULAR PREMATURE COMPLEXES INTRAVENTRICULAR CONDUCTION DELAY INFERIOR INFARCT, AGE INDETERMINATE BORDERLINE ST-T WAVE ABNORMALITY- HIGH LATERAL LEADS BASELINE ARTIFACT- V1 ABNORMAL ECG Electronically Signed On 11-28-2020 7:52:42 CDT by Ben Nam D.O.
[2020-11-28 08:00] LABS: Basophils Percent Auto 0.3 % (0.2-1.2); Eosinophils Absolute Auto 0.3 K/mm3 (0-0.3); Eosinophils Percent Auto 2.3 % (0-4.4); Hematocrit 49.5 % (42.0-52.0); Immature Granulocyte Absolute 0.08 K/mm3 (0.00-0.031); Immature Granulocyte Percent A 0.7 % (0-0.5); Lymphocytes Absolute Auto 2.64 K/mm3 (0.9-3.2); Lymphocytes Percent Auto 23.9 % (18.3-44.2); Mean Corpuscular HGB Conc 34.3 g/dl (32-36); Mean Corpuscular Hemoglobin 32.6 pg (26-34); Mean Corpuscular Volume 94.8 fl (80-100); Mean Platelet Volume 10.5 fl (7.4-10.4); Monocytes Absolute Auto 0.8 K/mm3 (0.1-0.6); Monocytes Percent Auto 6.8 % (2.6-8.5); Neutrophils Absolute Auto 7.3 K/mm3 (1.3-6.7); Platelet Count Result 152 k/mm3 (150-375); Red Blood Count 5.22 M/mm3 (4.6-6.20); Red Cell Distribution Width 13.4 % (11.5-14.5); White Blood Count 11.1 K/mm3 (4.5-10.0)
[2020-11-28 08:11] LABS: Blood Urea Nitrogen 19 mg/dL (9-20); Estimated CRCL calculation 259 ml/min; Estimated Glomerular Filt Rate > 60
[2020-11-28 08:13] LABS: INR 2.1
[2020-11-28] MEDS: dilTIAZem HCl INJ 25 MG/5 ML VIAL 15 MG IV PUSH (08:13)
[2020-11-28 08:14] LABS: Partial Thromboplastin Time 32.1 SECONDS (22.3-36.8)
--- NOTE | 2020-11-28 08:16 | ED.ARRPALP ---
HPI - Arrhythmia/Palpitations General Chief Complaint: Arrhythmia/Palpitations Stated Complaint: heart racing Time Seen by Provider: 11/28/20 07:39 Source: patient, RN notes reviewed and old records reviewed Mode of arrival: ambulatory Limitations: no limitations History of Present Illness HPI narrative: This is a 45 year old male with history of morbid obesity, PSVT, oxygen dependence who presents for evaluation of heart racing. Patient states approximately 6 am this morning he felt his heart rate start racing. He states when it is above 140 he feels it pounding behind his hears and in his chest . He attempted vagal maneuvers at home without relief. He denies otherwise feeling anything out of the ordinary. He denies nausea, vomiting, diarrhea, abdominal pain, sob, cough or fever. He was seen for similar episode 2 months ago and he was transfer to [facility]. He states he was told he is not good candidate for ablation due to obesity and COPD. He has not had any other issues since September. He takes metoprolol 50 mg and warfarin. Related Data Home Medications Medication Instructions Recorded Confirmed chlorthalidone 25 mg tablet 25 mg PO HS 05/14/19 11/28/20 lisinopril 20 mg tablet 10 mg PO HS 05/14/19 11/28/20 meloxicam 7.5 mg tablet 15 mg PO HS tablet 05/14/19 11/28/20 simvastatin 20 mg tablet 20 mg PO HS 05/14/19 11/28/20 metoprolol succinate [Toprol XL] 50 mg PO HS 11/28/20 11/28/20 warfarin 8 mg PO HS 11/28/20 11/28/20 Allergies Allergy/AdvReac Type Severity Reaction Status Date / Time No Known Allergies Allergy Verified 11/28/20 07:44 Review of Systems Review of Systems: All systems reviewed & are unremarkable except as noted in HPI and below PMFSH Past Medical History Medical History (Updated 11/28/20 @ 16:51 by Radha Yepez MD) Chronic anticoagulation Long-term warfarin for history of recurrent venous thromboembolism. Previously evaluated by night court magistrate at [facility] with an unrevealing workup. Chronic obstructive pulmonary disease, unspecified Chronic respiratory failure with hypoxia, on home oxygen therapy Deep venous thrombosis Dyslipidemia Essential hypertension Morbid obesity Obstructive sleep apnea on CPAP Paroxysmal supraventricular tachycardia Pulmonary embolism Pulmonary hypertension Pulmonary nodules Tobacco abuse Surgical History Surgical History (Updated 11/28/20 @ 15:27 by Baylee Vilchis PA-C) History of wisdom tooth extraction Family History Family History Father Diabetes mellitus Family history of diabetes mellitus in first degree relative Grandparent Family history of malignant neoplasm Other Cerebrovascular accident Family history of cardiovascular disease Family history of kidney disease Hypertension Social History Social History (Updated 11/28/20 @ 15:28 by Baylee Vilchis PA-C) Social History: Surrogate decision maker: Abderlahman and Chayo Mott, parents. Code status: Full code. Smoking packs per day: 0.75 Smoking cigarettes per day: 15.0 Years smoked: 10 Smoking pack-years: 7.50 Smoking status: Heavy tobacco smoker Tobacco type: cigarettes Alcohol intake: never Substance use: never Additional living arrangements comments: Resides in [place] with his parents. Additional occupation/education comments: Disabled. Exam Const: General: no acute distress and alert Nutritional Appearance: obese Orientation/consciousness: patient oriented x3 Eyes: EOM: EOMs intact bilaterally Resp: Effort & Inspection: normal respiratory effort and no retractions Auscultation: clear to auscultation bilaterally Cardio: Rate: tachycardic Rhythm: regular rhythm Heart sounds: no murmurs GI: GI Palp: Yes Soft to palpation, No Tenderness to palpation present (GI) and No Guarding due to palpation present (GI) Auscultation: normal bowel sounds Neur
[2020-11-28 08:26] LABS: Troponin I < 0.012 ng/mL (0.000-0.034)
[2020-11-28] MEDS: ASPIRIN 81 MG CHEWABLE TABLET 324 MG PO (08:29)
[2020-11-28 08:38] LABS: Anion Gap 7 mmol/L (8-16); Calcium 9.2 mg/dL (8.4-10.2); Carbon Dioxide 25 mmol/L (22-30); Chloride 104 mmol/L (98-107); Glucose 132 mg/dL (65-110); Potassium 3.6 mmol/L (3.4-5.0); Sodium 136 mmol/L (137-145)
[2020-11-28] MEDS: IPRATROPIUM BR 0.02% INH SOLN 0.5 MG/2.5 ML VIAL INHALATION ×3 (09:23→21:11)
[2020-11-28] MEDS: ALBUTEROL SULFATE NEB 2.5 MG/0.5 ML INH 5 MG INHALATION (09:23)
--- NOTE | 2020-11-28 09:32 | ECG_ITS ---
Measurements Intervals [place] Rate: 71 P: 86 [place]: 216 QRS: 44 QRSD: 130 T: 50 QT: 428 QTc: 465 Interpretive Statements SINUS RHYTHM WITH FIRST DEGREE AV BLOCK INCOMPLETE RIGHT BUNDLE BRANCH BLOCK BASELINE ARTIFACT- II, III, AVR, AVF, V1, V3-V6 ABNORMAL ECG Electronically Signed On 11-28-2020 17:16:46 CDT by Ben Nam D.O.
--- NOTE | 2020-11-28 09:33 | PM.CNCAR ---
Assessment and Plan Assessment and plan (1) PSVT (paroxysmal supraventricular tachycardia): Code(s): I47.1 - Supraventricular tachycardia Status: Acute Assessment and Plan: Discuss Sotalol loading 80 mg BID for 2 nights along with checking EKG 1-2 hours post dose to check QT interval. If he is still in SVT by tomorrow morning then will consider Adenosine or DC cardioversion and he is agreeable to Adenosine. Stop Metoprolol. (2) Tobacco abuse: Code(s): Z72.0 - Tobacco use Status: Acute Assessment and Plan: Counseled regarding smoking cessation. (3) Obesity: Code(s): E66.9 - Obesity, unspecified Status: Acute (4) Chronic obstructive pulmonary disease, unspecified: Qualifiers: COPD type: unspecified COPD Qualified Code(s): J44.9 - Chronic obstructive pulmonary disease, unspecified Code(s): J44.9 - Chronic obstructive pulmonary disease, unspecified Status: Acute (5) Dyslipidemia: Code(s): E78.5 - Hyperlipidemia, unspecified Status: Acute Assessment and Plan: On Simvastatin. (6) Essential hypertension: Code(s): I10 - Essential (primary) hypertension Status: Acute Assessment and Plan: Low normal. Would hold his home Lisinopril. (7) CORDELL on CPAP: Code(s): G47.33 - Obstructive sleep apnea (adult) (pediatric); Z99.89 - Dependence on other enabling machines and devices Status: Acute History of Present Illness History of Present Illness Consult date/time: 11/28/20 09:33 Reason for consult: SVT. Patient is a 45 yr old man who is my regular cardiology patient presents to ED for palpitations. He has a history of PSVT, hypertension, COPD, CORDELL on CPAP (followed by Holger Phoenix NP), obesity, dyslipidemia, History of DVT and PE since age 21(Seen front office attendant in past and was thoroughly evaluated but no new findings per patient. On Coumadin and INR being followed by PCP.). He presents to ER for palpitations and associated sob. It is noted on monitor and EKG that he is in SVT at 130-140's bpm. He was here for the same on 09/13/20 and at that time he was transferred to [facility] for management and consideration for ablation. According to patient he was told that he is not a good candidate given his weight and COPD. He does not want adenosine again since he did not like the way it felt 2 months ago. He has had only palpitations twice and vagal maneuver usually restored normal rhythm. Admits to smoking a few cigarettes per day down from 1 ppd. Reports chronic intermittent sharp chest pain twice a week at any time. He can leisurely walk around [employer] just fine. Denies sob, orthopnea, palpitations. He has chronic trace to mild edema of legs. Cardiovascular Procedures Echo/MUGA:: Echo (TDS; RV not well seen. EF normal, mild MR/TR.) - 06/18/2016 Electrophysiology:: 03/03/20 EKG: SVT, consider atrial tachycardia at 136 bpm, IRBBB, BRWP. 01/25/20 EKG: Sinus tachycardia at 108 bpm, RBBB. 08/06/19 EKG: Sinus rhythm, IVCD, cannot r/o septal infarct, age indeterminate. EKG (Sinus rhythm, IVCD, baseline artifact- i, ii, iii, avr, avl, avf.) - 11/18/2017 EKG (Sinus rhythm with first degree AV block, IVCD.) - 08/01/2017 Stress Tests:: Echo (Negative for ischemia.) - 08/28/2017 08/06/19 CT chest: No pulm embolism. Stable small pulm nodules <[address] (Chronic pulmonary embolism in lower lobes. Mild emphysema.) - 08/01/2017 Reason For Visit: heart racing Review of Systems Constitutional: Constitutional: Reports as per HPI, Denies chills and Denies fever(s) Cardiovascular: Cardiovascular: Reports as per HPI, Denies chest pain, Reports irregular heart rhythm and Denies lightheadedness Respiratory: Respiratory: Reports as per HPI and Reports dyspnea Gastrointestinal: Gastrointestinal: Reports as per HPI and Denies abdominal pain Genitourinary: Genitourinary: Reports as per HPI and Denies dysuria Musculoskeletal
[2020-11-28] MEDS: ADENOSINE IV SOLN 6 MG/2 ML VIAL IV PUSH (09:55)
[2020-11-28 11:08] LABS: Troponin I < 0.012 ng/mL (0.000-0.034)
[2020-11-28] MEDS: SOTALOL HCL 80 MG TABLET PO ×2 (11:30→21:23)
[2020-11-28] MEDS: SODIUM CHLORIDE 0.9% IV 500 ML 999 ML IV CONT (11:40)
[2020-11-28] MEDS: ALBUTEROL SULFATE NEB 2.5 MG/0.5 ML INH INHALATION ×2 (13:25→21:11)
--- NOTE | 2020-11-28 13:33 | ECG_ITS ---
Measurements Intervals [place] Rate: 61 P: 83 [place]: 229 QRS: 34 QRSD: 114 T: 33 QT: 439 QTc: 443 Interpretive Statements SINUS RHYTHM WITH FIRST DEGREE AV BLOCK INTRAVENTRICULAR CONDUCTION DELAY BASELINE ARTIFACT- III ABNORMAL ECG Electronically Signed On 11-29-2020 5:46:11 CDT by Ben Nam D.O.
--- NOTE | 2020-11-28 13:37 | PC.NURSE ---
attempted to contact Dr. Nam regarding EKG s/p sotalol loading. per his staff he is at a golfing event .
--- NOTE | 2020-11-28 13:49 | PC.NURSE ---
Dr. Nam returned call. This RN read EKG findings to Dr. Nam. No new orders received, to continue current plan of care.
[2020-11-28 14:07] LABS: Troponin I < 0.012 ng/mL (0.000-0.034)
--- NOTE | 2020-11-28 14:19 | ADMGEN ---
This patient, Abdelrahman Mott Jr., was admitted to [facility]. Patient is being boarded in ED Room 12. Patient/family oriented to hospital policies and general routines including ID bracelet, bed and alarms, visiting hours, pain management, procedures, bathroom and other care routines, personal items, smoking policy, room service/diet, and visiting hours. Information on how to activate the Rapid Response Team has been discussed. Patient/Family are encouraged to report perceived risks to care and to ask questions if they do not understand what they are told or what they should do.
--- NOTE | 2020-11-28 14:30 | PM.IMHP ---
H&P: HPI History of Present Illness Date/Time: 11/28/20 14:30 Chief Complaint: Palpitations. Narrative: This is a 45-year-old male smoker with multiple medical problems including paroxysmal supraventricular tachycardia, recurrent venous thromboembolism on long-term warfarin, hypertension, hyperlipidemia, obstructive sleep apnea, chronic obstructive pulmonary disease, chronic respiratory failure on home oxygen, and morbid obesity who presented to the emergency department earlier this morning for evaluation of palpitations. His heart started to race at approximately 05:00 with a pounding sensation in his chest up into the ears, similar to when he had SVT in the past. He attempted different vagal maneuvers at home without benefit. He was seen emergency department for the same on 09/13/2020 at which time he was transferred to [facility] for consideration for ablation. At that time the air drier did not feel that he was a good candidate for ablation and he has been on metoprolol since that time. He is now in a sinus rhythm after receiving adenosine 6 mg x1 in the emergency department and he is being admitted for sotalol loading per Dr. Nam. At the time my evaluation he has no significant complaints. He does mention that over the last week or so he has felt like he was not able to get in a deep breath and has had a slight cough productive of clear sputum as well as occasional wheezing. He has been using his rescue inhaler with some benefit. He was tested for COVID-19 last week and was negative for that. He denies fever, chills, sweats, anosmia, dysgeusia, sore throat, chest pain, pleuritic pain, nausea, vomiting, and diarrhea. He has no known history of thyroid disease. He is compliant with his CPAP when sleeping. He does not use alcohol. Drinks at least 40 oz of caffeinated tea a day. He does not drink energy drinks or take [id number] supplements. No drug use. Review of Systems Review of Systems: Twelve systems were reviewed with pertinent positives and negatives per HPI. Except as documented, all other systems were reviewed and are negative. [facility] Past Medical History Medical History (Updated 11/28/20 @ 21:51 by Baylee Vilchis PA-C) Chronic anticoagulation Long-term warfarin for history of recurrent venous thromboembolism. Previously evaluated by planting supervisor at [facility] with an unrevealing workup. Chronic obstructive pulmonary disease, unspecified Chronic respiratory failure with hypoxia, on home oxygen therapy Patient on 3 to 5 L nasal cannula. Deep venous thrombosis Dyslipidemia Essential hypertension Morbid obesity Obstructive sleep apnea on CPAP Paroxysmal supraventricular tachycardia Pulmonary embolism Pulmonary hypertension Pulmonary nodules Tobacco abuse Surgical History Surgical History (Updated 11/28/20 @ 15:27 by Baylee Vilchis PA-C) History of wisdom tooth extraction Family History Family History Father Diabetes mellitus Family history of diabetes mellitus in first degree relative Grandparent Family history of malignant neoplasm Other Cerebrovascular accident Family history of cardiovascular disease Family history of kidney disease Hypertension Social History Social History Social History: Surrogate decision maker: Abdelrahman and Chayo Mott, parents. Code status: Full code. Smoking packs per day: 0.75 Smoking cigarettes per day: 15.0 Years smoked: 10 Smoking pack-years: 7.50 Smoking status: Heavy tobacco smoker Tobacco type: cigarettes Alcohol intake: never Substance use: never Additional living arrangements comments: Resides in [place] with his parents. Additional occupation/education comments: Disabled. Meds Home Medications and Allergies Home Medications Medication Instructions Recorded Confirmed
--- NOTE | 2020-11-28 16:32 | ADMGEN ---
This patient, Abdelrahman Mott Jr., was admitted to IMU Room 209-. Patient/family oriented to hospital policies and general routines including ID bracelet, bed and alarms, visiting hours, pain management, procedures, bathroom and other care routines, personal items, smoking policy, room service/diet, and visiting hours. Information on how to activate the Rapid Response Team has been discussed. Patient/Family are encouraged to report perceived risks to care and to ask questions if they do not understand what they are told or what they should do. All admission questions complete in ED prior to admission to IMU 209
[2020-11-28 18:31] LABS: Hemoglobin A1C 5.9 % (<5.7)
[2020-11-28] MEDS: CHLORTHALIDONE 25 MG TABLET PO (23:35)
[2020-11-28] MEDS: SIMVASTATIN 20 MG TABLET PO (23:36)
[2020-11-28] MEDS: WARFARIN (*PBKC) 4 MG TABLET 8 MG PO (23:36)
[2020-11-28] MEDS: lisinopriL 10 MG TABLET PO (23:36)
[2020-11-28] MEDS: MELOXICAM 7.5 MG TABLET 15 MG PO (23:36)
[2020-11-29] VITALS (21 sets, daily range): BP systolic 120–160; BP diastolic 69–80; PULSE 58–90; RESP 18–24; TEMP 36.1–36.8; O2SAT 90–100
[2020-11-29] MEDS: ALBUTEROL SULFATE (*SP) AEROSOL 1 PUFF 2 PUFF INHALATION (02:22)
[2020-11-29 05:02] LABS: Hematocrit 45.8 % (42.0-52.0); Hemoglobin 15.1 g/dL (14.0-18.0); Immature Platelet Fraction Pct 5.4 % (0.9-11.2); Mean Corpuscular Hemoglobin 31.7 pg (26-34); Mean Corpuscular Volume 96.2 fl (80-100); Mean Platelet Volume 10.3 fl (7.4-10.4); Platelet Count Result 132 k/mm3 (150-375); Red Blood Count 4.76 M/mm3 (4.6-6.20); Red Cell Distribution Width 13.6 % (11.5-14.5); White Blood Count 9.4 K/mm3 (4.5-10.0)
[2020-11-29 05:14] LABS: Prothrombin Time 22.5 Seconds (11.1-14.7)
[2020-11-29 05:22] LABS: Alanine Aminotransferase 24 U/L (4-50); Albumin Level 3.7 g/dL (3.5-5.1); Alkaline Phosphatase 76 U/L (38-126); Anion Gap 1 mmol/L (8-16); Aspartate Amino Transferase 25 U/L (17-59); Bilirubin,Total 0.8 mg/dL (0.2-1.3); Blood Urea Nitrogen 17 mg/dL (9-20); Calcium 8.8 mg/dL (8.4-10.2); Carbon Dioxide 36 mmol/L (22-30); Chloride 100 mmol/L (98-107); Estimated CRCL calculation 261 ml/min; Estimated Glomerular Filt Rate > 60; Glucose 106 mg/dL (65-110); Magnesium 2.1 mg/dL (1.6-2.3); Sodium 137 mmol/L (137-145)
[2020-11-29 07:02] LABS: Glucose Point of Care 159 mg/dl (65-105)
--- NOTE | 2020-11-29 07:40 | PM.PNCARD ---
Progress Note: A&P Assessment and Plan (1) PSVT (paroxysmal supraventricular tachycardia): Code(s): I47.1 - Supraventricular tachycardia Status: Acute Assessment and Plan: He reports he saw EP at [facility] who said he was high risk for ablation due to COPD and obesity, requiring oxygen. Discuss Sotalol loading 80 mg BID for 2 nights along with checking EKG 1-2 hours post dose to check QT interval. He is back in sinus rhythm with adenosine. Continue Sotalol for 1 more night. Obtain echo. (2) Tobacco abuse: Code(s): Z72.0 - Tobacco use Status: Acute Assessment and Plan: Counseled regarding smoking cessation. (3) Obesity: Code(s): E66.9 - Obesity, unspecified Status: Acute (4) Chronic obstructive pulmonary disease, unspecified: Qualifiers: COPD type: unspecified COPD Qualified Code(s): J44.9 - Chronic obstructive pulmonary disease, unspecified Code(s): J44.9 - Chronic obstructive pulmonary disease, unspecified Status: Acute (5) Dyslipidemia: Code(s): E78.5 - Hyperlipidemia, unspecified Status: Acute Assessment and Plan: On Simvastatin. (6) Essential hypertension: Code(s): I10 - Essential (primary) hypertension Status: Acute Assessment and Plan: Stable. (7) CORDELL on CPAP: Code(s): G47.33 - Obstructive sleep apnea (adult) (pediatric); Z99.89 - Dependence on other enabling machines and devices Status: Acute Subjective Date/time seen: 11/29/20 07:40 He is sob after walking to restroom this morning off his oxygen. No chest pain. Denies palpitations. Exam Const: General: cooperative, healthy appearing and comfortable Nutritional Appearance: obese Resp: Auscultation: clear to auscultation bilaterally, no crackles, no rales, no rhonchi and no wheezes Cardio: Jugular venous distension: no JVD Rate: regular rate Rhythm: regular rhythm Heart sounds: no murmurs GI: GI Palp: No abdominal tenderness and Yes Soft to palpation Neuro: General: oriented to person, oriented to place and oriented to time Extrem: Right lower extremity: no edema Left lower extremity: no edema Objective Data Vital Signs Vital Signs: Vital Signs - 24 hr 11/28/20 08:13 11/28/20 09:25 11/28/20 09:29 Temperature Pulse Rate 107 H 115 H 125 H Respiratory Rate 20 23 H Blood Pressure 101/59 L Pulse Oximetry 11/28/20 10:00 11/28/20 10:36 11/28/20 10:50 Temperature Pulse Rate 101 H 88 87 Respiratory Rate 26 H 21 H 22 H Blood Pressure 132/90 98/55 L 112/66 Pulse Oximetry 97 100 97 11/28/20 11:30 11/28/20 13:25 11/28/20 13:32 Temperature Pulse Rate 84 71 72 Respiratory Rate 16 18 Blood Pressure Pulse Oximetry 11/28/20 15:06 11/28/20 16:30 11/28/20 16:35 Temperature 97.9 F Pulse Rate 62 69 69 Respiratory Rate 16 20 Blood Pressure 108/62 114/56 L Pulse Oximetry 96 94 95 11/28/20 18:00 11/28/20 19:24 11/28/20 20:00 Temperature 97.7 F Pulse Rate 94 75 90 Respiratory Rate 24 H 24 H Blood Pressure 126/62 Pulse Oximetry 93 93 11/28/20 21:11 11/28/20 21:14 11/28/20 21:23 Temperature Pulse Rate 65 65 79 Respiratory Rate 18 18 Blood Pressure Pulse Oximetry 95 11/28/20 21:24 11/28/20 22:00 11/28/20 22:22 Temperature Pulse Rate 69 65 69 Respiratory Rate 18 17 Blood Pressure Pulse Oximetry 95 11/29/20 00:00 11/29/20 02:00 11/29/20 02:27 Temperature 98.3 F Pulse Rate 63 73 71 Respiratory Rate 20 18 Blood Pressure 135/77 Pulse Oximetry 100 11/29/20 04:00 11/29/20 06:00 Temperature 98.0 F Pulse Rate 60 67 Respiratory Rate 20 Blood Pressure 120/71 Pulse Oximetry 98 Intake/Output Intake/Output: Intake & Output 11/26/20 11/27/20 11/28/20 11/29/20 23:59 23:59 23:59 23:59 Intake Total 860 500 Output Total 100 Balance 860 400 Meds/Results Medications: Active Medications Generic Nam
[2020-11-29 08:09] LABS: Thyroid Stimulating Hormone Reflex 0.197 uIU/mL (0.465-4.68)
[2020-11-29] MEDS: SOTALOL HCL 80 MG TABLET PO ×2 (08:15→20:21)
[2020-11-29] MEDS: guaiFENesin 12 HR 600 MG TABCR 1200 MG PO ×2 (08:15→20:19)
--- NOTE | 2020-11-29 10:15 | ECG_ITS ---
Measurements Intervals [place] Rate: 64 P: 47 PA: 216 QRS: 38 QRSD: 128 T: 34 QT: 444 QTc: 459 Interpretive Statements SINUS RHYTHM WITH FIRST DEGREE AV BLOCK ATRIAL PREMATURE COMPLEX INTRAVENTRICULAR CONDUCTION DELAY BASELINE WANDER- V4-V6 ABNORMAL ECG Electronically Signed On 11-29-2020 10:54:43 CDT by Ben Nam D.O.
[2020-11-29 12:32] LABS: Free T4 Free Thyroxine Reflex 1.19 ng/dL (0.78-2.19)
--- NOTE | 2020-11-29 16:07 | PM.IMPN ---
Progress Note: A&P Assessment and Plan (1) Paroxysmal supraventricular tachycardia: Code(s): I47.1 - Supraventricular tachycardia Status: Acute Assessment and Plan: Dr. Nam (cardiology) consulted. Plan to load with sotalol thus he will be in the hospital for at least 2 nights. 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 INR is 2.1. Continue warfarin and monitor. (3) Obstructive sleep apnea on CPAP: Code(s): G47.33 - Obstructive sleep apnea (adult) (pediatric); Z99.89 - Dependence on other enabling machines and devices Status: Acute Assessment and Plan: CPAP will be provided for the patient to use while hospitalized. (4) Essential hypertension: Code(s): I10 - Essential (primary) hypertension Status: Acute Assessment and Plan: BP 133/79 currently Continue Cholrthlidone 25mg PO HS, lisinopril 10mg PO HS, Metoprolol 50mg PO HS Trend blood pressure Adjust medications as needed (5) Chronic respiratory failure with hypoxia, on home oxygen therapy: Code(s): J96.11 - Chronic respiratory failure with hypoxia; Z99.81 - Dependence on supplemental oxygen Status: Acute Assessment and Plan: At baseline home oxygen requirement. (6) Hyperglycemia: Code(s): R73.9 - Hyperglycemia, unspecified Status: Acute Assessment and Plan: A1c 5.9 Accu checks AC/HS trend glucose (7) Tobacco abuse: Code(s): Z72.0 - Tobacco use Status: Acute Assessment and Plan: Smoking cessation is encouraged. Patient does not seem motivated. Education given Will add patch and gum when needed Subjective Date/time seen: 11/29/20 15:00 Interval history: Patient is a 45 year old male that is here for palpitation that has been sustained. Today patient states that he feels ok and has not experienced any palpitations or fast heart rate since admission. He did complain of a cough that is productive of clear yellow sputum. He also stated that he is having some soreness in his chest. He also stated that he is short of breath, but not more than normal. Patient denied nausea, vomiting, abdominal pain, fever, fatigue, or chills. Review of Systems Review of Systems: All systems reviewed & are unremarkable except as noted in HPI and below Exam Const: General: cooperative, healthy appearing, comfortable, no acute distress, well developed, alert, awake and Physically active Nutritional Appearance: well nourished, obese and overweight Orientation/consciousness: oriented to person, oriented to place, oriented to time and patient oriented x3 Limitations: physical limitations (obesity) HENMT: Head: normal to inspection Ears: hearing grossly normal bilaterally General nose exam: Normal external nose present Mouth: Yes Normal oral and palatal mucosa present, Yes lip normal and Yes tongue normal Teeth and gingiva: abnormal tooth and associated gingiva and poor dentition Eyes: General: appearance normal, both eyes and all related structures Neck: Neck: normal visual inspection, full ROM, trachea midline and supple Chest: Chest palpation & inspection: normal inspection of the chest Resp: Effort & Inspection: normal respiratory effort and able to speak in complete sentences Auscultation: clear to auscultation bilaterally Cardio: Jugular venous distension: no JVD Rate: regular rate Rhythm: regular rhythm Heart sounds: S1 normal heart sound present and S2 normal heart sound present Peripheral pulses: Peripheral pulses 2+ throughout GI: Inspection: normal to inspection GI Palp: Yes Soft to palpation and No Tenderness to palpation present (GI) Auscultation: normal bowel sounds Skin: General skin exam: normal color and no ra
[2020-11-29] MEDS: ALBUTEROL SULFATE NEB 2.5 MG/0.5 ML INH INHALATION (19:58)
[2020-11-29] MEDS: IPRATROPIUM BR 0.02% INH SOLN 0.5 MG/2.5 ML VIAL INHALATION (19:59)
[2020-11-29] MEDS: lisinopriL 10 MG TABLET PO (20:20)
[2020-11-29] MEDS: CHLORTHALIDONE 25 MG TABLET PO (20:20)
[2020-11-29] MEDS: MELOXICAM 7.5 MG TABLET 15 MG PO (20:21)
[2020-11-29] MEDS: SIMVASTATIN 20 MG TABLET PO (20:22)
[2020-11-29] MEDS: WARFARIN (*PBKC) 4 MG TABLET 8 MG PO (20:22)
[2020-11-29 21:17] LABS: Total Triiodothyronine (T3) 1.22 NG/ML (0.97-1.69)
--- NOTE | 2020-11-29 22:03 | ECG_ITS ---
Measurements Intervals [place] Rate: 70 P: 71 [place]: 242 QRS: 31 QRSD: 119 T: 40 QT: 413 QTc: 446 Interpretive Statements SINUS RHYTHM WITH FIRST DEGREE AV BLOCK VENTRICULAR PREMATURE COMPLEX BASELINE ARTIFACT- I, III, AVR, AVL, AVF, V1 ABNORMAL ECG Electronically Signed On 12-06-2020 8:58:06 CDT by Ben Nam D.O.
[2020-11-30] VITALS (9 sets, daily range): BP systolic 115–134; BP diastolic 68–76; PULSE 57–79; RESP 12–20; TEMP 36.2–36.7; O2SAT 79–97
--- NOTE | 2020-11-30 | ECHO_ITS ---
Patient Info Name: Abdelrahman Mott Age: 45 years : 1975 Gender: Male Ht: 72 in Wt: 500 lbs BSA: 3.54 m2 HR: 79 bpm BP: 115 / 68 mmHg Heart Rhythm: Sinus Rhythm Technical Quality: Poor Exam Date: 11/30/2020 7:59 AM Exam Location: [facility] Pulmonary Patient Status: Inpatient Admit Date: 11/28/2020 Staff Ordering Physician: Ben Nam DO Hr Analyst: RAQUEL Attending Provider: Jovany Jalloh MD Referring Physician: Cyril TOSCANO; Exam Type: CA echo doppler color flow Study Info Indications - SVT Complete two-dimensional, color flow and Doppler transthoracic echocardiogram is performed. Summary 1. Complete two-dimensional, color flow and Doppler transthoracic echocardiogram is performed. 2. Technically suboptimal study due to poor sonographic images. 3. Left ventricular chamber dimension is normal. 4. Left ventricular systolic function is normal, estimated at 60-65%. 5. There is mildly increased left ventricular wall thickness. 6. The left ventricular diastolic function is normal. 7. E/e' 9 is minimally elevated. 8. Left atrial chamber dimension is moderately enlarged. 9. Right atrial chamber dimension is mildly enlarged. 10. No pulmonary hypertension, estimated pulmonary arterial systolic pressure is 8 mmHg. Left Ventricle E/e' 9 is minimally elevated. Technically suboptimal study due to poor sonographic images. Left ventricular chamber dimension is normal. Left ventricular systolic function is normal, estimated at 60-65%. There is mildly increased left ventricular wall thickness. The left ventricular diastolic function is normal. Right Ventricle Right ventricular chamber dimension is not well visualized. Left Atria Left atrial chamber dimension is moderately enlarged. Right Atria Right atrial chamber dimension is mildly enlarged. Aortic Valve The aortic valve is not well visualized. There is no aortic valve stenosis. There is no aortic valve regurgitation. Pulmonic Valve The pulmonic valve is not well visualized. Mitral Valve There is no mitral valve stenosis. There is no mitral valve regurgitation. Tricuspid Valve There is no tricuspid valve regurgitation. No pulmonary hypertension, estimated pulmonary arterial systolic pressure is 8 mmHg. Pericardium/Pleural There is no pericardial effusion. Inferior Vena Cava Normal inferior vena cava with >50% collapse upon inspiration consistent with normal right atrial pressure, 5 mmHg. Aorta The aortic root size at the sinus of Valsalva is not well visualized. Left Ventricular Outflow Tract Name Value Normal LVOT Doppler LVOT Peak Gradient 4 mmHg Mitral Valve Name Value Normal MV Doppler MV Decel Haskell 271 cm/s2 MV PHT 94 ms MV Area (PHT) 2.3 cm2 4.0-5.0 MV Diastolic Function MV E
[2020-11-30 05:18] LABS: Basophils Percent Auto 0.2 % (0.2-1.2); Eosinophils Absolute Auto 0.3 K/mm3 (0-0.3); Eosinophils Percent Auto 3.9 % (0-4.4); Hematocrit 44.3 % (42.0-52.0); Immature Granulocyte Absolute 0.05 K/mm3 (0.00-0.031); Immature Granulocyte Percent A 0.6 % (0-0.5); Immature Platelet Fraction Pct 5.3 % (0.9-11.2); Lymphocytes Absolute Auto 2.04 K/mm3 (0.9-3.2); Lymphocytes Percent Auto 23.6 % (18.3-44.2); Mean Corpuscular HGB Conc 33.9 g/dl (32-36); Mean Corpuscular Hemoglobin 32.5 pg (26-34); Mean Corpuscular Volume 95.9 fl (80-100); Mean Platelet Volume 10.7 fl (7.4-10.4); Monocytes Absolute Auto 0.8 K/mm3 (0.1-0.6); Monocytes Percent Auto 8.9 % (2.6-8.5); Neutrophils Absolute Auto 5.4 K/mm3 (1.3-6.7); Neutrophils Percent Auto 62.8 % (45.5-73.1); Platelet Count Result 134 k/mm3 (150-375); Red Blood Count 4.62 M/mm3 (4.6-6.20); Red Cell Distribution Width 13.2 % (11.5-14.5); White Blood Count 8.6 K/mm3 (4.5-10.0)
[2020-11-30 05:30] LABS: INR 2.5; Prothrombin Time 26.7 Seconds (11.1-14.7)
[2020-11-30 05:31] LABS: Partial Thromboplastin Time 35.2 SECONDS (22.3-36.8)
[2020-11-30 05:34] LABS: Alanine Aminotransferase 22 U/L (4-50); Albumin Level 3.6 g/dL (3.5-5.1); Alkaline Phosphatase 72 U/L (38-126); Anion Gap 2 mmol/L (8-16); Aspartate Amino Transferase 24 U/L (17-59); Bilirubin,Total 0.7 mg/dL (0.2-1.3); Blood Urea Nitrogen 17 mg/dL (9-20); Calcium 8.8 mg/dL (8.4-10.2); Carbon Dioxide 36 mmol/L (22-30); Chloride 98 mmol/L (98-107); Estimated CRCL calculation 227 ml/min; Estimated Glomerular Filt Rate > 60; Glucose 103 mg/dL (65-110); Magnesium 2.2 mg/dL (1.6-2.3); Potassium 3.8 mmol/L (3.4-5.0); Sodium 136 mmol/L (137-145)
[2020-11-30] MEDS: guaiFENesin 12 HR 600 MG TABCR 1200 MG PO (08:42)
[2020-11-30] MEDS: SOTALOL HCL 80 MG TABLET PO (08:42)
--- NOTE | 2020-11-30 10:45 | ECG_ITS ---
Measurements Intervals [place] Rate: 55 P: [place]: 0 QRS: 35 QRSD: 127 T: 38 QT: 469 QTc: 452 Interpretive Statements SINUS BRADYCARDIA SUPRAVENTRICULAR TRIGEMINY ABNORMAL ECG Electronically Signed On 11-30-2020 12:06:21 CDT by Ben Nam D.O.
--- NOTE | 2020-11-30 10:52 | PM.PNCARD ---
Progress Note: A&P Assessment and Plan (1) PSVT (paroxysmal supraventricular tachycardia): Code(s): I47.1 - Supraventricular tachycardia Status: Acute Assessment and Plan: He reports he saw EP at [facility] who said he was high risk for ablation due to COPD and obesity, requiring oxygen. Discuss Sotalol loading 80 mg BID for 2 nights along with checking EKG 1-2 hours post dose to check QT interval. He is back in sinus rhythm with adenosine. Tolerated Sotalol loading with normal QT interval. Echo is unremarkable. Continue Sotalol 80 mg BID. He does not need Metoprolol. May d/c home from cardiology standpoint and f/u with me in 2 weeks. (2) Tobacco abuse: Code(s): Z72.0 - Tobacco use Status: Acute Assessment and Plan: Counseled regarding smoking cessation. (3) Obesity: Code(s): E66.9 - Obesity, unspecified Status: Acute (4) Chronic obstructive pulmonary disease, unspecified: Qualifiers: COPD type: unspecified COPD Qualified Code(s): J44.9 - Chronic obstructive pulmonary disease, unspecified Code(s): J44.9 - Chronic obstructive pulmonary disease, unspecified Status: Acute Assessment and Plan: Managed as per hospitalist. (5) Dyslipidemia: Code(s): E78.5 - Hyperlipidemia, unspecified Status: Acute Assessment and Plan: On Simvastatin. (6) Essential hypertension: Code(s): I10 - Essential (primary) hypertension Status: Acute Assessment and Plan: Stable. (7) CORDELL on CPAP: Code(s): G47.33 - Obstructive sleep apnea (adult) (pediatric); Z99.89 - Dependence on other enabling machines and devices Status: Acute Subjective Date/time seen: 11/30/20 10:52 Denies chest pain. Has chronic sob. No palpitations. Exam Const: General: cooperative, healthy appearing and comfortable Nutritional Appearance: obese Resp: Auscultation: clear to auscultation bilaterally, no crackles, no rales, no rhonchi and no wheezes Cardio: Jugular venous distension: no JVD Rate: regular rate Rhythm: regular rhythm Heart sounds: no murmurs GI: GI Palp: No abdominal tenderness and Yes Soft to palpation Neuro: General: oriented to person, oriented to place and oriented to time Extrem: Right lower extremity: no edema Left lower extremity: no edema Objective Data Vital Signs Vital Signs: Vital Signs - 24 hr 11/29/20 12:00 11/29/20 14:00 11/29/20 16:00 Temperature 97.8 F Pulse Rate 68 67 77 Respiratory Rate 22 H Blood Pressure 138/69 Pulse Oximetry 90 11/29/20 16:15 11/29/20 18:00 11/29/20 18:52 Temperature 97.3 F L 97.0 F L Pulse Rate 74 64 58 L Respiratory Rate 22 H 23 H Blood Pressure 133/79 130/77 Pulse Oximetry 92 99 11/29/20 20:00 11/29/20 20:01 11/29/20 20:08 Temperature Pulse Rate 60 88 90 Respiratory Rate 22 H 22 H 22 H Blood Pressure Pulse Oximetry 95 95 11/29/20 20:21 11/29/20 22:00 11/29/20 23:36 Temperature 98.0 F Pulse Rate 71 73 66 Respiratory Rate 20 Blood Pressure 125/73 Pulse Oximetry 94 11/30/20 00:00 11/30/20 02:00 11/30/20 04:00 Temperature 98.0 F Pulse Rate 79 63 74 Respiratory Rate 20 18 Blood Pressure 115/68 Pulse Oximetry 94 79 L 11/30/20 06:00 11/30/20 08:00 11/30/20 09:16 Temperature 97.2 F L Pulse Rate 57 L 63 Respiratory Rate 20 Blood Pressure 134/76 Pulse Oximetry 94 94 11/30/20 10:00 Temperature Pulse Rate 58 L Respiratory Rate Blood Pressure Pulse Oximetry Intake/Output Intake/Output: Intake & Output 11/27/20 11/28/20 11/29/20 11/30/20 23:59 23:59 23:59 23:59 Intake Total 860 1620 300 Output Total 100 700 Balance 860 1520 -400 Meds/Results Medications: Active Medications Generic Name Dose Route Start Last Admin Trade Name Adri PRN Reason Stop Dose Admin Albuterol 2.5 mg 11/29/20 07:00 11/29/20 19:58 Albuterol Sulfate Neb 2.5 Mg/0.5 Ml Inh INH
--- NOTE | 2020-11-30 12:29 | PM.DS ---
DS: Admitting Diagnosis Admitting Diagnosis Sustained SVT DS: Discharge Diagnosis Discharge Diagnosis (1) Paroxysmal supraventricular tachycardia: Code(s): I47.1 - Supraventricular tachycardia Status: Acute Assessment and Plan: Dr. Nam (cardiology) consulted. Plan to load with sotalol thus he will be in the hospital for at least 2 nights. 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 INR is 2.1. Continue warfarin and monitor. (3) Obstructive sleep apnea on CPAP: Code(s): G47.33 - Obstructive sleep apnea (adult) (pediatric); Z99.89 - Dependence on other enabling machines and devices Status: Acute Assessment and Plan: CPAP will be provided for the patient to use while hospitalized. (4) Essential hypertension: Code(s): I10 - Essential (primary) hypertension Status: Acute Assessment and Plan: BP 133/79 currently Continue Cholrthlidone 25mg PO HS, lisinopril 10mg PO HS, Metoprolol 50mg PO HS Trend blood pressure Adjust medications as needed (5) Chronic respiratory failure with hypoxia, on home oxygen therapy: Code(s): J96.11 - Chronic respiratory failure with hypoxia; Z99.81 - Dependence on supplemental oxygen Status: Acute Assessment and Plan: At baseline home oxygen requirement. (6) Hyperglycemia: Code(s): R73.9 - Hyperglycemia, unspecified Status: Acute Assessment and Plan: A1c 5.9 Accu checks AC/HS trend glucose (7) Tobacco abuse: Code(s): Z72.0 - Tobacco use Status: Acute Assessment and Plan: Smoking cessation is encouraged. Patient does not seem motivated. Education given Will add patch and gum when needed DS: Summary Hospital Course Reason for hospitalization: Date of service 11/30/2020 at 12:30 p.m. Hospital Course: Patient is a 45-year-old male with a past medical history of COPD, chronic home O2, hypertension who presented to the hospital for sustained SVT for roughly 20 minutes. Since admission patient was treated with sotalol 80 mg p.o. q.12. His loading time Went well and patient has maintained sinus rhythm/sinus Brian in the 50-60s. Patient had no other complaints upon arrival. Patient was also monitored with continuous EKGs after each dose which remained stable with a QTC in the 450s. Dr. caba is also been following this patient and recommended that this patient would go home on sotalol 80 mg p.o. b.i.d. and to follow-up with him in 2 weeks. At this time patient has no complaints of chest pain, palpitations, shortness of breath, constipation, diarrhea, nausea, vomiting, fevers, chills, abdominal pain. Time spent discussing smoking cessation with patient: more than 10 minutes Status at Discharge Functional status at discharge: independent ambulation Overall status at discharge: patient is progressing back to baseline Time Spent with Patient Time attestation: Total time spent providing and/or coordinating discharge services: 58 minutes Time spent: Greater than 30 minutes Specific discharge activities: Lab/chart/diagnostic testing review, documentation, physical exam, education Exam Const: General: cooperative, healthy appearing, comfortable, no acute distress, well developed, alert, awake and Physically active Nutritional Appearance: well nourished, obese and overweight Orientation/consciousness: oriented to person, oriented to place, oriented to time and patient oriented x3 Limitations: physical limitations (obesity) HENMT: Head: normal to inspection Ears: hearing grossly normal bilaterally General nose exam: Normal external nose present Mouth: Yes Normal oral and palatal mucosa present, Yes lip normal and Yes tongue normal Teeth and gingiva: abnormal t
== END 2020-11-30 14:57 | disposition home or self-care (01) ==
LOC: ANHED 07:39 → ANHIMU 16:10
PROVIDERS: Nurse Practitioner; Physician Assistant; Admitting Provider Internal Medicine; Emergency Provider General Practice; PCP Family Medicine; Visit Provider Internal Medicine
DX: I47.1 Supraventricular tachycardia (principal); J96.11 Chronic respiratory failure with hypoxia; R00.2 Palpitations; I10 Essential (primary) hypertension; E78.5 Hyperlipidemia, unspecified; E66.01 Morbid (severe) obesity due to excess calories; F17.210 Nicotine dependence, cigarettes, uncomplicated; G47.33 Obstructive sleep apnea (adult) (pediatric); J44.9 Chronic obstructive pulmonary disease, unspecified; R73.9 Hyperglycemia, unspecified; Z99.81 Dependence on supplemental oxygen; Z79.01 Long term (current) use of anticoagulants; Z68.44 Body mass index [BMI] 60.0-69.9, adult; Z99.89 Dependence on other enabling machines and devices
CPT/HCPCS: 36415; 71045; 80048; 80053; 82948; 83036; 83735; 84439; 84443; 84480; 84484; 85025; 85027; 85055; 85610; 85730; 93005; 93306; 94640; 94667; 96361; 96365; 96375; 99285; A9270; G0378; G0379; J0153; J7030; J7040

== ENCOUNTER → 2021-01-25 02:58 | Outpatient (CLI) | payer OTHER, SELFPAY ==
[2021-01-25 17:42] LABS: SARS-CoV-2 RNA PCR Negative
== END ==
PROVIDERS: PCP Family Medicine; Visit Provider Family Medicine
DX: R68.89 Other general symptoms and signs (principal); Z20.822 Contact with and (suspected) exposure to COVID-19
CPT/HCPCS: C9803; U0003; U0005

== ENCOUNTER 2021-06-15 09:18 | Emergency (ER) | payer OTHER, SELFPAY ==
--- NOTE | ~2021-06-15 | XR_ITS ---
EXAMINATION: XR chest 2V DATE: 06/15/2021 12:11 INDICATION: Pleuritic chest pain. TECHNIQUE: Frontal and lateral views of the chest were obtained. COMPARISON: Chest single view 11/28/2020, chest CT 08/06/2019 FINDINGS: There are airspace opacities in the lower lung zones. No pleural effusion or pneumothorax. The heart size is normal. There are prominent paracardial fat pads. There is mild chronic height loss of multiple vertebral bodies. IMPRESSION: 1. Airspace opacities in the lower lung zones, consistent with atelectasis versus pneumonia. Reviewed, dictated and finalized at location A. TARY LANDFILL SUPERVISOR IMPRESSION: 1. Airspace opacities in the lower lung zones, consistent with atelectasis vers us pneumonia.
[2021-06-15 09:23] VITALS: BP 159/84; PULSE 87; RESP 17; TEMP 36.7; O2SAT 95
--- NOTE | 2021-06-15 11:08 | ECG_ITS ---
Measurements Intervals [place] Rate: 65 P: 74 [place]: 212 QRS: 22 QRSD: 124 T: 21 QT: 425 QTc: 443 Interpretive Statements SINUS RHYTHM WITH FIRST DEGREE AV BLOCK CANNOT RULE OUT SEPTAL MYOCARDIAL INFARCTION , OF INDETERMINATE AGE [40+ ms Q WAVE IN V1/V2] COMPARED TO ECG 11/30/2020 11:36:50 HEART RATE HAS INCREASED, FIRST-DEGREE AV BLOCK NOTED. Electronically Signed On 06-15-2021 15:17:22 PHYSICIANS ASSISTANT by Jesus Dolan M.D.
[2021-06-15 11:11] VITALS: BP 116/72; PULSE 75; RESP 21; O2SAT 98
[2021-06-15 11:41] LABS: Basophils Percent Auto 0.3 % (0.2-1.2); Eosinophils Absolute Auto 0.1 K/mm3 (0-0.3); Eosinophils Percent Auto 1.7 % (0-4.4); Hematocrit 44.6 % (42.0-52.0); Hemoglobin 15.3 g/dL (14.0-18.0); Immature Granulocyte Absolute 0.01 K/mm3 (0.00-0.031); Immature Granulocyte Percent A 0.2 % (0-0.5); Immature Platelet Fraction Pct 3.6 % (0.9-11.2); Lymphocytes Absolute Auto 1.39 K/mm3 (0.9-3.2); Lymphocytes Percent Auto 20.9 % (18.3-44.2); Mean Corpuscular HGB Conc 34.3 g/dl (32-36); Mean Corpuscular Hemoglobin 31.4 pg (26-34); Mean Corpuscular Volume 91.6 fl (80-100); Mean Platelet Volume 9.7 fl (7.4-10.4); Monocytes Absolute Auto 0.9 K/mm3 (0.1-0.6); Monocytes Percent Auto 13.3 % (2.6-8.5); Neutrophils Absolute Auto 4.2 K/mm3 (1.3-6.7); Neutrophils Percent Auto 63.6 % (45.5-73.1); Platelet Count Result 148 k/mm3 (150-375); Red Blood Count 4.87 M/mm3 (4.6-6.20); Red Cell Distribution Width 12.1 % (11.5-14.5); White Blood Count 6.6 K/mm3 (4.5-10.0)
[2021-06-15 11:50] LABS: Alanine Aminotransferase 31 U/L (4-50); Albumin Level 4.1 g/dL (3.5-5.1); Alkaline Phosphatase 101 U/L (38-126); Anion Gap 6 mmol/L (8-16); Aspartate Amino Transferase 35 U/L (17-59); Bilirubin,Total 0.7 mg/dL (0.2-1.3); Blood Urea Nitrogen 18 mg/dL (9-20); Calcium 8.7 mg/dL (8.4-10.2); Carbon Dioxide 29 mmol/L (22-30); Chloride 102 mmol/L (98-107); Estimated CRCL calculation 225 ml/min; Estimated Glomerular Filt Rate > 60; Glucose 118 mg/dL (65-110); Potassium 3.7 mmol/L (3.4-5.0); Sodium 137 mmol/L (137-145)
[2021-06-15 11:53] LABS: INR 4.6; Prothrombin Time 42.4 Seconds (11.1-14.7)
[2021-06-15 11:59] LABS: NT Pro B Type Natriuretic Pept 93 pg/mL (5-100)
[2021-06-15 12:02] LABS: Troponin I < 0.012 ng/mL (0.000-0.034)
[2021-06-15 14:15] VITALS: PULSE 67; RESP 14; O2SAT 98
--- NOTE | 2021-06-15 14:16 | ED.GENADULT ---
HPI - General Adult General Chief complaint: Unspecified Stated complaint: HAYS, dizzy, nausea Time Seen by Provider: 06/15/21 11:04 History of Present Illness HPI narrative: Patient is a 45-year-old male who presents ER with multiple issues. Main issue is he feels like he is having burning in his lungs over the last couple days. Mild cough which may be related to chronic lung issues. He wears 3 to 4 L of O2 at all x3 to scarring in his lungs from previous PEs. He reports he quit smoking a few weeks ago and his oxygen requirement is actually improved. No body aches. No reported fevers or chills. Checks his INR weekly and has been therapeutic. No new lower extremity swelling. Related Data Home Medications Medication Instructions Recorded Confirmed chlorthalidone 25 mg tablet 25 mg PO HS 05/14/19 03/21/21 lisinopril 20 mg tablet 10 mg PO HS 05/14/19 03/21/21 meloxicam 7.5 mg tablet 15 mg PO HS tablet 05/14/19 03/21/21 simvastatin 20 mg tablet 20 mg PO HS 05/14/19 03/21/21 warfarin 8 mg PO HS 11/28/20 03/21/21 Allergies Allergy/AdvReac Type Severity Reaction Status Date / Time No Known Allergies Allergy Verified 03/21/21 15:09 Review of Systems Review of Systems: All systems reviewed & are unremarkable except as noted in HPI and below Constitutional: Constitutional: Denies chills, Denies fever(s) and Reports weakness ENT: Denies nasal congestion and Denies sore throat Cardiovascular: Cardiovascular: Denies chest pain and Denies rapid heart rate Respiratory: Respiratory: Reports cough, Denies excessive phlegm production, Reports dyspnea and Denies wheezing Gastrointestinal: Gastrointestinal: Denies abdominal pain, Denies nausea and Denies vomiting [facility] Past Medical History Medical History Chronic anticoagulation Long-term warfarin for history of recurrent venous thromboembolism. Previously evaluated by press tender long goods at [facility] with an unrevealing workup. Chronic obstructive pulmonary disease, unspecified Chronic respiratory failure with hypoxia, on home oxygen therapy Patient on 3 to 5 L nasal cannula. Deep venous thrombosis Dyslipidemia Essential hypertension Morbid obesity Obstructive sleep apnea on CPAP Paroxysmal supraventricular tachycardia Pulmonary embolism Pulmonary hypertension Pulmonary nodules Tobacco abuse Surgical History Surgical History History of wisdom tooth extraction Family History Family History Father Diabetes mellitus Family history of diabetes mellitus in first degree relative Grandparent Family history of malignant neoplasm Other Cerebrovascular accident Family history of cardiovascular disease Family history of kidney disease Hypertension Social History Social History Social History: Surrogate decision maker: Abdelrahman and Chayo Mott, parents. Code status: Full code. Smoking packs per day: 0.75 Smoking cigarettes per day: 15.0 Years smoked: 10 Smoking pack-years: 7.50 Smoking status: Current every day smoker Tobacco type: cigarettes and cigars Alcohol intake: never Substance use: never Additional living arrangements comments: Resides in [place] with his parents. Additional occupation/education comments: Disabled. Sexual Orientation (if Verbalized by the Patient): Straight or Heterosexual Exam Narrative: GENERAL: Well-appearing, morbidly obese, and in no acute distress. HEAD: Normocephalic, atraumatic. EYES: PERRL and EOMI. ENT: Mucous membranes moist. CHEST: Clear to auscultation but diminished bilaterally. No respiratory distress. HEART: Regular rate and rhythm. Normal peripheral pulses. ABDOMEN: Soft, nontender, nondistended. EXTREMITIES: Normal range of motion.
[2021-06-15 14:33] VITALS: PULSE 65; RESP 14; O2SAT 98
== END 2021-06-15 14:34 | disposition home or self-care (01) ==
PROVIDERS: Emergency Provider Emergency Medicine; PCP Family Medicine
DX: J18.9 Pneumonia, unspecified organism (principal); R79.1 Abnormal coagulation profile; J44.9 Chronic obstructive pulmonary disease, unspecified; J96.11 Chronic respiratory failure with hypoxia; E78.5 Hyperlipidemia, unspecified; I10 Essential (primary) hypertension; Z86.711 Personal history of pulmonary embolism; I27.21 Secondary pulmonary arterial hypertension; G47.33 Obstructive sleep apnea (adult) (pediatric); E66.01 Morbid (severe) obesity due to excess calories; Z68.44 Body mass index [BMI] 60.0-69.9, adult; Z99.81 Dependence on supplemental oxygen; Z86.718 Personal history of other venous thrombosis and embolism; Z87.891 Personal history of nicotine dependence; Z79.82 Long term (current) use of aspirin; R94.31 Abnormal electrocardiogram [ECG] [EKG]; I44.0 Atrioventricular block, first degree
CPT/HCPCS: 36415; 71046; 80053; 83880; 84484; 85025; 85055; 85610; 85730; 93005; 99284

== ENCOUNTER 2021-07-06 10:00 | Emergency (ER) | payer OTHER, SELFPAY ==
[2021-07-06 10:02] VITALS: BP 116/61; PULSE 99; RESP 20; TEMP 36.8; O2SAT 95
[2021-07-06 13:45] VITALS: BP 126/71; PULSE 84; RESP 18; O2SAT 96
[2021-07-06 14:16] LABS: Add Urine Microscopic? YES; Appearance Urine Turbid (Clear); Bilirubin Urine Negative (Negative); Blood Urine 3+ (Negative); Color Urine Yellow (Yellow); Glucose Urine UA Negative (Negative); Ketones Urine Trace mg/dL (Negative); Leukocyte Esterase Ur 2+ LEU/UL (Negative); Mucus Urine Moderate /lpf; Nitrate Urine Negative (Negative); Protein Urine 2+ mg/dL (Negative); RBC Urine >75 /hpf (0-2); Specific Grav Ur 1.017 (1.001-1.035); Squamous Epithelial Cell Urine Moderate /hpf (Few); WBC Clumps Urine Present /HPF; WBC Urine >75 /hpf
--- NOTE | 2021-07-06 14:18 | ECG_ITS ---
Measurements Intervals [place] Rate: 97 P: 63 [place]: 181 QRS: 16 QRSD: 123 T: 50 QT: 367 QTc: 467 Interpretive Statements SINUS RHYTHM WITH FREQUENT VENTRICULAR PREMATURE COMPLEXES MODERATE INTRAVENTRICULAR CONDUCTION DELAY [110+ ms QRS DURATION] CANNOT RULE OUT SEPTAL INFARCT ABNORMAL ECG COMPARED TO ECG 06/15/2021 11:15:21 PVC'S PRESENT Electronically Signed On 07-06-2021 17:32:47 CDT by Jesus Dolan M.D.
--- NOTE | 2021-07-06 14:38 | ED.GENADULT ---
HPI - General Adult General Chief complaint: Unspecified Stated complaint: multiple complaints Time Seen by Provider: 07/06/21 10:48 Source: RN notes reviewed History of Present Illness HPI narrative: Patient presents emergency department from home for dysuria. Patient states symptoms been ongoing for the past 6 days states initially taken Azo with some improvement but then the dysuria to return states he also has been having frequent urinations has been having episodes of feeling cold and intermittent nausea denies any measured fevers denies chest pain shortness of breath, abdominal pain vomiting diarrhea or any other symptoms. Patient states he has had a urinary tract for the past and he does feel consistent with prior he is chronically on 4 L nasal cannula at all time denies any other symptoms at this time. Patient also concerned as he had an episode where he believes his heart rate is possibly fast last night he is taking his heart rate on his monitor at home and it read 104 briefly he had no chest pain or shortness of breath he does take sotalol and has had no symptoms since Related Data Home Medications Medication Instructions Recorded Confirmed chlorthalidone 25 mg tablet 25 mg PO HS 05/14/19 03/21/21 lisinopril 20 mg tablet 10 mg PO HS 05/14/19 03/21/21 meloxicam 7.5 mg tablet 15 mg PO HS tablet 05/14/19 03/21/21 simvastatin 20 mg tablet 20 mg PO HS 05/14/19 03/21/21 warfarin 8 mg PO HS 11/28/20 03/21/21 Allergies Allergy/AdvReac Type Severity Reaction Status Date / Time No Known Allergies Allergy Verified 07/06/21 13:48 Review of Systems Review of Systems: Gen.: Denies fevers, reports chills Eyes: Denies eye pain or visual change ENT: Denies congestion Respiratory: Denies shortness of breath or cough CV: Denies chest pain reports palpitations GI: Denies abdominal pain emesis or diarrhea, reports nausea see HPI Musculoskeletal: Denies back pain or muscle pain Neuro: Denies numbness, tingling, weakness or focal weakness Skin: Denies rash Except as documented, all other systems reviewed and negative [facility] Past Medical History Medical History Chronic anticoagulation Long-term warfarin for history of recurrent venous thromboembolism. Previously evaluated by label maker at [facility] with an unrevealing workup. Chronic obstructive pulmonary disease, unspecified Chronic respiratory failure with hypoxia, on home oxygen therapy Patient on 3 to 5 L nasal cannula. Deep venous thrombosis Dyslipidemia Essential hypertension Morbid obesity Obstructive sleep apnea on CPAP Paroxysmal supraventricular tachycardia Pulmonary embolism Pulmonary hypertension Pulmonary nodules Tobacco abuse Surgical History Surgical History History of wisdom tooth extraction Family History Family History Father Diabetes mellitus Family history of diabetes mellitus in first degree relative Grandparent Family history of malignant neoplasm Other Cerebrovascular accident Family history of cardiovascular disease Family history of kidney disease Hypertension Social History Social History Social History: Surrogate decision maker: Abdelrahman and Chayo Mott, parents. Code status: Full code. Smoking packs per day: 0.75 Smoking cigarettes per day: 15.0 Years smoked: 10 Smoking pack-years: 7.50 Smoking status: Current every day smoker Tobacco type: cigarettes and cigars Alcohol intake: never Substance use: never Additional living arrangements comments: Resides in [place] with his parents. Additional occupation/education comments: Disabled. Sexual Orientation (if Verbalized by the Patient): Straight or Heterosexual Exam Narrative: APPEARANCE: No
[2021-07-06 15:09] LABS: Basophils Percent Auto 0.2 % (0.2-1.2); Hematocrit 43.6 % (42.0-52.0); Hemoglobin 14.6 g/dL (14.0-18.0); Immature Granulocyte Absolute 0.05 K/mm3 (0.00-0.031); Immature Granulocyte Percent A 0.5 % (0-0.5); Lymphocytes Absolute Auto 1.86 K/mm3 (0.9-3.2); Lymphocytes Percent Auto 17.2 % (18.3-44.2); Mean Corpuscular HGB Conc 33.5 g/dl (32-36); Mean Corpuscular Hemoglobin 31.9 pg (26-34); Mean Corpuscular Volume 95.2 fl (80-100); Mean Platelet Volume 9.9 fl (7.4-10.4); Monocytes Absolute Auto 1.4 K/mm3 (0.1-0.6); Monocytes Percent Auto 12.8 % (2.6-8.5); Neutrophils Absolute Auto 7.5 K/mm3 (1.3-6.7); Neutrophils Percent Auto 69.3 % (45.5-73.1); Platelet Count Result 138 k/mm3 (150-375); Red Blood Count 4.58 M/mm3 (4.6-6.20); Red Cell Distribution Width 12.8 % (11.5-14.5); White Blood Count 10.8 K/mm3 (4.5-10.0)
[2021-07-06 15:18] LABS: Alanine Aminotransferase 33 U/L (4-50); Albumin Level 4.1 g/dL (3.5-5.1); Alkaline Phosphatase 101 U/L (38-126); Anion Gap 6 mmol/L (8-16); Aspartate Amino Transferase 36 U/L (17-59); Bilirubin,Total 1.8 mg/dL (0.2-1.3); Blood Urea Nitrogen 29 mg/dL (9-20); Calcium 8.7 mg/dL (8.4-10.2); Carbon Dioxide 30 mmol/L (22-30); Chloride 99 mmol/L (98-107); Estimated CRCL calculation 116 ml/min; Estimated Glomerular Filt Rate 55; Glucose 128 mg/dL (65-110); INR 3.7; Potassium 3.8 mmol/L (3.4-5.0); Prothrombin Time 35.7 Seconds (11.1-14.7); Sodium 135 mmol/L (137-145)
[2021-07-06 15:19] LABS: Partial Thromboplastin Time 50.1 SECONDS (22.3-36.8)
[2021-07-06] MEDS: SODIUM CHLORIDE 0.9% IV 1,000 ML 999 ML IV CONT (16:02)
[2021-07-06 16:03] VITALS: BP 107/55; PULSE 98; RESP 20; O2SAT 96
[2021-07-06 17:54] VITALS: PULSE 78; RESP 16; O2SAT 96
== END 2021-07-06 17:57 | disposition home or self-care (01) ==
PROVIDERS: Emergency Provider Emergency Medicine; PCP Family Medicine
DX: N39.0 Urinary tract infection, site not specified (principal); N28.9 Disorder of kidney and ureter, unspecified; J44.9 Chronic obstructive pulmonary disease, unspecified; E78.5 Hyperlipidemia, unspecified; I10 Essential (primary) hypertension; E66.01 Morbid (severe) obesity due to excess calories; Z68.44 Body mass index [BMI] 60.0-69.9, adult; G47.33 Obstructive sleep apnea (adult) (pediatric); I27.20 Pulmonary hypertension, unspecified; F17.210 Nicotine dependence, cigarettes, uncomplicated; F17.290 Nicotine dependence, other tobacco product, uncomplicated; Z86.711 Personal history of pulmonary embolism; Z86.718 Personal history of other venous thrombosis and embolism; Z79.01 Long term (current) use of anticoagulants; Z99.81 Dependence on supplemental oxygen; R94.31 Abnormal electrocardiogram [ECG] [EKG]
CPT/HCPCS: 36415; 80053; 81001; 85025; 85610; 85730; 87077; 87086; 87088; 87186; 93005; 96365; 96366; 99284; J0696; J7030

== ENCOUNTER 2021-10-02 14:42 | Emergency (ER) | payer OTHER, SELFPAY ==
--- NOTE | ~2021-10-02 | XR_ITS ---
EXAMINATION: XR chest 2V DATE: 10/02/2021 15:17 INDICATION: Chest pain TECHNIQUE: PA and lateral views of the chest are obtained. COMPARISON: 06/15/2021 FINDINGS: There are airspace opacities of the lung bases. No pleural effusion or pneumothorax. The ca rdiomediastinal silhouette is normal. Again noted is chronic mild loss of vertebral body height at mu ltiple levels in the thoracic spine. IMPRESSION: 1. Bibasilar airspace opacities, consistent with atelectasis versus pneumonia. Reviewed, dictated and finalized at location A.
[2021-10-02 14:46] VITALS: BP 162/93; PULSE 71; RESP 24; TEMP 36.4; O2SAT 97
--- NOTE | 2021-10-02 14:48 | ECG_ITS ---
Measurements Intervals [place] Rate: 64 P: 38 [place]: 211 QRS: 27 QRSD: 128 T: 39 QT: 420 QTc: 433 Interpretive Statements SINUS RHYTHM WITH FIRST DEGREE AV BLOCK COMPARED TO ECG 07/06/2021 14:37:02 FIRST DEGREE AV BLOCK NOW PRESENT Electronically Signed On 10-02-2021 19:37:51 CDT by Irene Oliva M.D.
[2021-10-02 15:06] LABS: Basophils Percent Auto 0.3 % (0.2-1.2); Eosinophils Absolute Auto 0.1 K/mm3 (0-0.3); Eosinophils Percent Auto 1.5 % (0-4.4); Hematocrit 44.7 % (42.0-52.0); Hemoglobin 15.1 g/dL (14.0-18.0); Immature Granulocyte Absolute 0.03 K/mm3 (0.00-0.031); Immature Granulocyte Percent A 0.3 % (0-0.5); Lymphocytes Absolute Auto 2.65 K/mm3 (0.9-3.2); Lymphocytes Percent Auto 29.9 % (18.3-44.2); Mean Corpuscular HGB Conc 33.8 g/dl (32-36); Mean Corpuscular Hemoglobin 31.9 pg (26-34); Mean Corpuscular Volume 94.5 fl (80-100); Mean Platelet Volume 9.9 fl (7.4-10.4); Monocytes Absolute Auto 0.7 K/mm3 (0.1-0.6); Monocytes Percent Auto 7.8 % (2.6-8.5); Neutrophils Absolute Auto 5.3 K/mm3 (1.3-6.7); Neutrophils Percent Auto 60.2 % (45.5-73.1); Platelet Count Result 164 k/mm3 (150-375); Red Blood Count 4.73 M/mm3 (4.6-6.20); White Blood Count 8.9 K/mm3 (4.5-10.0)
[2021-10-02 15:14] LABS: Alanine Aminotransferase 25 U/L (6-50); Albumin Level 4.2 g/dL (3.5-5.1); Alkaline Phosphatase 83 U/L (38-126); Anion Gap 6 mmol/L (8-16); Aspartate Amino Transferase 28 U/L (17-59); Bilirubin,Total 0.7 mg/dL (0.2-1.3); Blood Urea Nitrogen 21 mg/dL (9-20); Calcium 8.9 mg/dL (8.4-10.2); Carbon Dioxide 27 mmol/L (22-30); Chloride 103 mmol/L (98-107); Estimated CRCL calculation 198 ml/min; Estimated Glomerular Filt Rate > 60; Glucose 94 mg/dL (65-110); Lipase 17 U/L (23-300); Potassium 3.9 mmol/L (3.4-5.0); Sodium 136 mmol/L (137-145)
[2021-10-02 15:21] LABS: INR 1.3; Prothrombin Time 15.4 Seconds (11.1-14.7)
[2021-10-02 15:22] LABS: Partial Thromboplastin Time 27.7 SECONDS (22.3-36.8)
[2021-10-02 15:26] LABS: Troponin I < 0.012 ng/mL (0.000-0.034)
[2021-10-02 15:43] LABS: D Dimer 0.36 ug/mL (<0.48)
[2021-10-02 17:40] VITALS: BP 134/61; PULSE 64; TEMP 37.1; O2SAT 94
[2021-10-02 19:16] VITALS: BP 135/81; PULSE 61; RESP 16; O2SAT 97
--- NOTE | 2021-10-02 19:32 | ED.DIZZY ---
HPI - Dizziness General Chief Complaint: Dizziness Stated Complaint: DIZZY,NAUSEA,HAYS Time Seen by Provider: 10/02/21 19:16 History of Present Illness HPI Narrative: 45-year-old male with a history of hypertension, hyperlipidemia, COPD, history of pulmonary embolism on Coumadin, pulmonary hypertension presenting the emergency department for evaluation of of intermittent headache with nausea. Patient states since last Friday or Friday he has had episodes of headache and nausea. Patient states that the symptoms have been intermittent and minor. Patient denies any associated chest pain or shortness of breath. Patient has been monitoring his vitals and states that his blood pressure and pulse ox have been within normal limits. Patient states the symptoms are minor but have been persistent for about a week so he wanted to get checked out due to his significant past medical history. Upon arrival to the emerge department patient is saturating at 97% on room air. Patient is on room air at rest but goes up to 3 to 4 L by nasal cannula with exertion. Related Data Home Medications Medication Instructions Recorded Confirmed chlorthalidone 25 mg tablet 25 mg PO HS 05/14/19 09/19/21 lisinopril 20 mg tablet 10 mg PO HS 05/14/19 09/19/21 meloxicam 7.5 mg tablet 15 mg PO HS 05/14/19 09/19/21 simvastatin 20 mg tablet 20 mg PO HS 05/14/19 09/19/21 warfarin 4 mg tablet 8 mg PO HS 11/28/20 09/19/21 Allergies Allergy/AdvReac Type Severity Reaction Status Date / Time No Known Allergies Allergy Verified 09/19/21 15:05 Review of Systems Review of Systems: CONSTITUTIONAL: Denies fever, chills, or sweats. EYES: Denies visual changes, redness, or discharge. ENT: Denies rhinorrhea, congestion, sore throat, or otalgia. CARDIOVASCULAR: Denies chest pain, palpitations, or edema. RESPIRATORY: Denies cough or dyspnea. GASTROINTESTINAL: Denies abdominal pain. Reports nausea without vomiting GENITOURINARY: Denies dysuria or hematuria. SKIN: Denies rash or itching. MUSCULOSKELETAL: Denies back pain, joint pain, or myalgia. NEUROLOGIC: Intermittent headache but denies any associated numbness or weakness. PSYCHIATRIC: Denies anxiety or depression. [facility] Past Medical History Medical History Chronic anticoagulation Long-term warfarin for history of recurrent venous thromboembolism. Previously evaluated by supervisor dry cell assembly at [facility] with an unrevealing workup. Chronic obstructive pulmonary disease, unspecified Chronic respiratory failure with hypoxia, on home oxygen therapy Patient on 3 to 5 L nasal cannula. Deep venous thrombosis Dyslipidemia Essential hypertension Morbid obesity Obstructive sleep apnea on CPAP Paroxysmal supraventricular tachycardia Pulmonary embolism Pulmonary hypertension Pulmonary nodules Tobacco abuse Surgical History Surgical History History of wisdom tooth extraction Family History Family History Father Diabetes mellitus Family history of diabetes mellitus in first degree relative Grandparent Family history of malignant neoplasm Other Cerebrovascular accident Family history of cardiovascular disease Family history of kidney disease Hypertension Social History Social History Social History: Surrogate decision maker: Devin Mott, parents. Code status: Full code. Smoking packs per day: 0.75 Smoking cigarettes per day: 15.0 Years smoked: 10 Smoking pack-years: 7.50 Smoking status: Former smoker Tobacco type: cigarettes and cigars Alcohol intake: never Substance use: never Additional living arrangements comments: Resides in [place] with his parents. Additional occupation/education comments: Disabled. Sexual Orientation (if Verbalized by the
[2021-10-02 19:37] VITALS: O2SAT 98
== END 2021-10-02 20:05 | disposition home or self-care (01) ==
PROVIDERS: Emergency Medicine; Emergency Provider Emergency Medicine; PCP Family Medicine
DX: R51.9 Headache, unspecified (principal); R11.0 Nausea; I10 Essential (primary) hypertension; J44.9 Chronic obstructive pulmonary disease, unspecified; J96.11 Chronic respiratory failure with hypoxia; E78.5 Hyperlipidemia, unspecified; I27.20 Pulmonary hypertension, unspecified; G47.33 Obstructive sleep apnea (adult) (pediatric); E66.01 Morbid (severe) obesity due to excess calories; Z68.44 Body mass index [BMI] 60.0-69.9, adult; Z99.81 Dependence on supplemental oxygen; Z86.718 Personal history of other venous thrombosis and embolism; Z86.711 Personal history of pulmonary embolism; Z87.891 Personal history of nicotine dependence; Z79.01 Long term (current) use of anticoagulants; R91.8 Other nonspecific abnormal finding of lung field; I44.0 Atrioventricular block, first degree
CPT/HCPCS: 36415; 71046; 80053; 83690; 84484; 85025; 85380; 85610; 85730; 93005; 99284

== ENCOUNTER 2022-05-03 10:58 | Emergency (ER) | payer OTHER, SELFPAY ==
[2022-05-03] VITALS (21 sets, daily range): BP systolic 110–152; BP diastolic 69–103; PULSE 61–90; RESP 14–28; TEMP 36.2; O2SAT 92–97
--- NOTE | ~2022-05-03 | XR_ITS ---
Clinical Indication: Chest pain PA and lateral views of the chest: Comparison: 09/24/2021 Findings: The lungs are clear, without evidence of focal consolidation or pleural effusion. Cardiome diastinal silhouette is within normal limits. Bones and soft tissues are unremarkable. Impression: Normal chest. Reviewed, dictated and finalized at [facility]. 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
--- NOTE | 2022-05-03 11:00 | ECG_ITS ---
Measurements Intervals [place] Rate: 81 P: 71 SC: 194 QRS: 43 QRSD: 117 T: 47 QT: 392 QTc: 458 Interpretive Statements SINUS RHYTHM VENTRICULAR PREMATURE COMPLEXES INTRAVENTRICULAR CONDUCTION DELAY BORDERLINE ECG COMPARED TO ECG 10/02/2021 14:53:57 NO SIGNIFICANT CHANGES Electronically Signed On 05-03-2022 11:08:24 INVENTORY TECHNICIAN by Ben Nam D.O.
[2022-05-03 11:27] LABS: Basophils Percent Auto 0.2 % (0.2-1.2); Eosinophils Absolute Auto 0.2 K/mm3 (0-0.3); Eosinophils Percent Auto 1.7 % (0-4.4); Hematocrit 44.7 % (42.0-52.0); Hemoglobin 15.6 g/dL (14.0-18.0); Immature Granulocyte Absolute 0.04 K/mm3 (0.00-0.031); Immature Granulocyte Percent A 0.5 % (0-0.5); Lymphocytes Absolute Auto 2.65 K/mm3 (0.9-3.2); Lymphocytes Percent Auto 29.9 % (18.3-44.2); Mean Corpuscular HGB Conc 34.9 g/dl (32-36); Mean Corpuscular Hemoglobin 31.7 pg (26-34); Mean Corpuscular Volume 90.9 fl (80-100); Mean Platelet Volume 10.1 fl (7.4-10.4); Monocytes Absolute Auto 0.7 K/mm3 (0.1-0.6); Monocytes Percent Auto 7.9 % (2.6-8.5); Neutrophils Absolute Auto 5.3 K/mm3 (1.3-6.7); Neutrophils Percent Auto 59.8 % (45.5-73.1); Platelet Count Result 151 k/mm3 (150-375); Red Blood Count 4.92 M/mm3 (4.6-6.20); Red Cell Distribution Width 12.7 % (11.5-14.5); White Blood Count 8.9 K/mm3 (4.5-10.0)
[2022-05-03 11:32] LABS: Alanine Aminotransferase 31 U/L (6-50); Albumin Level 3.8 g/dL (3.5-5.1); Alkaline Phosphatase 99 U/L (38-126); Anion Gap 8 mmol/L (8-16); Aspartate Amino Transferase 27 U/L (17-59); Bilirubin,Total 0.8 mg/dL (0.2-1.3); Blood Urea Nitrogen 18 mg/dL (9-20); Calcium 8.5 mg/dL (8.4-10.2); Carbon Dioxide 25 mmol/L (22-30); Chloride 103 mmol/L (98-107); Estimated CRCL calculation 229 ml/min; Estimated Glomerular Filt Rate > 60; Glucose 112 mg/dL (65-110); Lipase 29 U/L (23-300); Potassium 3.8 mmol/L (3.4-5.0); Sodium 136 mmol/L (137-145)
[2022-05-03 11:37] LABS: INR 2.2; Prothrombin Time 23.5 Seconds (11.1-14.7)
[2022-05-03 11:38] LABS: Partial Thromboplastin Time 32.9 SECONDS (22.3-36.8)
[2022-05-03] MEDS: ASPIRIN 81 MG CHEWABLE TABLET 324 MG PO (11:40)
[2022-05-03 11:43] LABS: Troponin I < 0.012 ng/mL (0.000-0.034)
[2022-05-03 11:48] LABS: Influenza A QL RT-PCR Negative (Negative); Influenza B QL RT-PCR Negative (Negative); RSV RNA, RT-PCR Negative (Negative); SARS-CoV-2 RNA PCR Negative
[2022-05-03 14:18] LABS: Troponin I < 0.012 ng/mL (0.000-0.034)
--- NOTE | 2022-05-03 14:23 | ED.CHESTPAIN ---
HPI - Chest Pain General Chief Complaint: Chest Pain Stated Complaint: chest pain with inspiration Time Seen by Provider: 05/03/22 11:08 Source: RN notes reviewed History of Present Illness HPI narrative: Patient presents emergency room from home for chest pain. Patient states that person 1 week ago began to have upper respiratory symptoms states has had a mild cough productive of phlegm he states that with this he has been having some intermittent chest pain will be at different areas of his chest at different times he states sometimes will be on the left sometimes will be on the right states the pain can last several seconds to up to 10 to 20 minutes the pain can be sharp and stabbing in nature the pain is worse with deep inspiration and coughing and improved with rest states he has no pain at this current time states he does have a history of COPD and is chronically on 4 L nasal cannula at all time also notes a history of SVT and is on Coumadin which she has been taking he denies any fevers or chills shortness of breath abdominal pain nausea or vomiting or any other symptoms Related Data Home Medications Medication Instructions Recorded Confirmed chlorthalidone 25 mg tablet 25 mg PO HS 05/14/19 03/20/22 lisinopril 20 mg tablet 10 mg PO HS 05/14/19 03/20/22 meloxicam 7.5 mg tablet 15 mg PO HS 05/14/19 03/20/22 simvastatin 20 mg tablet 20 mg PO HS 05/14/19 03/20/22 warfarin 4 mg tablet 8 mg PO HS 11/28/20 03/20/22 Allergies Allergy/AdvReac Type Severity Reaction Status Date / Time No Known Allergies Allergy Verified 03/20/22 14:48 Review of Systems Review of Systems: Gen.: Denies fevers or chills Eyes: Denies eye pain or visual change ENT: Denies congestion Respiratory: Reports cough denies shortness of breath CV: See HPI GI: Denies abdominal pain nausea, emesis or diarrhea Musculoskeletal: Denies back pain or muscle pain Neuro: Denies numbness, tingling, weakness or focal weakness Skin: Denies rash Except as documented, all other systems reviewed and negative [facility] Past Medical History Medical History Chronic anticoagulation Long-term warfarin for history of recurrent venous thromboembolism. Previously evaluated by evaluation manager at [facility] with an unrevealing workup. Chronic obstructive pulmonary disease, unspecified Chronic respiratory failure with hypoxia, on home oxygen therapy Patient on 3 to 5 L nasal cannula. Deep venous thrombosis Dyslipidemia Essential hypertension Morbid obesity Obstructive sleep apnea on CPAP Paroxysmal supraventricular tachycardia Pulmonary embolism Pulmonary hypertension Pulmonary nodules Tobacco abuse Surgical History Surgical History History of wisdom tooth extraction Family History Family History Father Diabetes mellitus Family history of diabetes mellitus in first degree relative Grandparent Family history of malignant neoplasm Other Cerebrovascular accident Family history of cardiovascular disease Family history of kidney disease Hypertension Social History Social History Social History: Surrogate decision maker: Abdelrahman and Chayo Mott, parents. Code status: Full code. Smoking packs per day: 0.75 Smoking cigarettes per day: 15.0 Years smoked: 10 Smoking pack-years: 7.50 Smoking status: Former smoker Tobacco type: cigarettes and cigars Alcohol intake: never Substance use: never Additional living arrangements comments: Resides in [place] with his parents. Additional occupation/education comments: Disabled. Sexual Orientation (if Verbalized by the Patient): Straight or Heterosexual Exam Narrative: APPEARANCE: No acute distress, nontoxic, resting in bed EYES: EOMI HEENT: Normocephalic, a
== END 2022-05-03 14:35 | disposition home or self-care (01) ==
PROVIDERS: Emergency Provider Emergency Medicine; PCP Family Medicine
DX: J06.9 Acute upper respiratory infection, unspecified (principal); R07.89 Other chest pain; Z20.822 Contact with and (suspected) exposure to COVID-19; J44.9 Chronic obstructive pulmonary disease, unspecified; J96.11 Chronic respiratory failure with hypoxia; I10 Essential (primary) hypertension; E78.5 Hyperlipidemia, unspecified; I27.20 Pulmonary hypertension, unspecified; G47.33 Obstructive sleep apnea (adult) (pediatric); E66.01 Morbid (severe) obesity due to excess calories; Z68.45 Body mass index [BMI] 70 or greater, adult; Z86.711 Personal history of pulmonary embolism; Z86.718 Personal history of other venous thrombosis and embolism; Z87.891 Personal history of nicotine dependence; Z99.81 Dependence on supplemental oxygen; Z79.01 Long term (current) use of anticoagulants
CPT/HCPCS: 36415; 71046; 80053; 83690; 84484; 85025; 85610; 85730; 87637; 93005; 99284; A9270

== ENCOUNTER 2022-06-21 13:10 | Emergency (ER) | payer OTHER, SELFPAY ==
--- NOTE | ~2022-06-21 | CT_ITS ---
EXAMINATION: CT abdomen pelvis wo con DATE: 06/21/2022 14:11 INDICATION: Bilateral flank pain TECHNIQUE: Computed tomography (CT) of the abdomen and pelvis was performed without intravenous contr ast. Automated exposure control and iterative reconstruction technique were employed. The dose-length product was 1660.54 mGy-cm. COMPARISON: 03/22/2015 FINDINGS: Lung bases are clear. Heart size is normal. No pericardial or pleural effusion. Liver, gallbladder, s pleen and bilateral adrenal glands are normal. Moderate fatty atrophy of the pancreas. Kidneys and ur eters are normal with no urolithiasis, hydroureteronephrosis or perinephric/ureteral stranding. Short segment of nonobstructed sigmoid colon extends into a moderate-sized umbilical hernia which measures 10.1 x 9.4 x 8.2 cm with 3.7 x 2.8 cm os. Bowels including the appendix are otherwise normal. Nearly decompressed bladder is normal. No free intraperitoneal gas or fluid. No pathologically enlarged abd ominal or pelvic lymphadenopathy. Moderate thoracic and lumbar spondylosis. Chronic mild anterior wed ging at T11 and T12 with several Schmorl's nodes in the lower thoracic and upper lumbar spine. IMPRESSION: 1. No urolithiasis or acute intra-abdominal/pelvic process. 2. Short segment of nonobstructed sigmoid colon extends into a moderate-sized umbilical hernia. Reviewed, dictated and finalized at location B. IMPRESSION: 1. No urolithiasis or acute intra-abdominal/pelvic process. 2. Short segment of nonobstructed sigmoid colon extends into a moderate-sized u mbilical hernia.
[2022-06-21 13:17] VITALS: BP 141/71; PULSE 71; RESP 20; TEMP 36.5; O2SAT 96
[2022-06-21 13:49] LABS: Basophils Percent Auto 0.4 % (0.2-1.2); Eosinophils Absolute Auto 0.1 K/mm3 (0-0.3); Eosinophils Percent Auto 1.8 % (0-4.4); Hematocrit 47.4 % (42.0-52.0); Hemoglobin 16.2 g/dL (14.0-18.0); Immature Granulocyte Absolute 0.02 K/mm3 (0.00-0.031); Immature Granulocyte Percent A 0.3 % (0-0.5); Lymphocytes Absolute Auto 1.94 K/mm3 (0.9-3.2); Mean Corpuscular HGB Conc 34.2 g/dl (32-36); Mean Corpuscular Hemoglobin 31.4 pg (26-34); Mean Corpuscular Volume 91.9 fl (80-100); Mean Platelet Volume 9.8 fl (7.4-10.4); Monocytes Absolute Auto 0.7 K/mm3 (0.1-0.6); Neutrophils Absolute Auto 4.4 K/mm3 (1.3-6.7); Neutrophils Percent Auto 61.5 % (45.5-73.1); Platelet Count Result 159 k/mm3 (150-375); Red Blood Count 5.16 M/mm3 (4.6-6.20); Red Cell Distribution Width 12.8 % (11.5-14.5); White Blood Count 7.2 K/mm3 (4.5-10.0)
--- NOTE | 2022-06-21 13:53 | ED.GENADULT ---
HPI - General Adult General Chief complaint: Abdominal Pain Stated complaint: pain in sides for two weeks Time Seen by Provider: 06/21/22 13:16 History of Present Illness HPI narrative: Mr Mott is a 46 y/o male. PMHx COPD, PE, Smoker, HTN, Dyslipidemia, DVT, On warfarin regimen, Morbid obesity, CORDELL. Presents to ED today with acute complaints of bilateral flank pain, intermittently radiating to lower abdomen. -He reports pain to have initially occurred in his LT lower back a few days ago, and since spread more generalized. -'Sharp', and worse with movement or bending. -No falls or trauma relayed. -No loss of lower extremity sensation or bowel/bladder control. -Denies fever. -No concerns, dysuria, hematuria, penile discharge, testicular swelling or pain. -No loose or bloody stool. Related Data Home Medications Medication Instructions Recorded Confirmed chlorthalidone 25 mg tablet 25 mg PO HS 05/14/19 05/15/22 lisinopril 20 mg tablet 10 mg PO HS 05/14/19 05/15/22 meloxicam 7.5 mg tablet 15 mg PO HS 05/14/19 05/15/22 simvastatin 20 mg tablet 20 mg PO HS 05/14/19 05/15/22 warfarin 4 mg tablet 8 mg PO HS 11/28/20 05/15/22 Allergies Allergy/AdvReac Type Severity Reaction Status Date / Time No Known Allergies Allergy Verified 06/21/22 13:17 Review of Systems Review of Systems: CONSTITUTIONAL: Denies fever, chills, sweats. EYES: Denies visual changes, redness, discharge. ENT: Denies rhinorrhea, congestion, sore throat, otalgia. CARDIOVASCULAR: Denies chest pain, palpitations, edema. RESPIRATORY: Denies dyspnea, wheezing, cough GASTROINTESTINAL: No abdominal pain, nausea, vomiting, diarrhea. GENITOURINARY: Bilateral flank pain, no dysuria, hematuria, abnormal discharge SKIN: Denies rash or itching. MUSCULOSKELETAL: Low back pain. No additional joint pain, or myalgia. NEUROLOGIC: Denies numbness, or focal weakness. No loss of bowel/bladder control. PSYCHIATRIC: Denies anxiety or depression. All other systems have been reviewed: Unless noted remaining ROS Negative. [facility] Past Medical History Medical History Chronic anticoagulation Long-term warfarin for history of recurrent venous thromboembolism. Previously evaluated by tonger at [facility] with an unrevealing workup. Chronic obstructive pulmonary disease, unspecified Chronic respiratory failure with hypoxia, on home oxygen therapy Patient on 3 to 5 L nasal cannula. Deep venous thrombosis Dyslipidemia Essential hypertension Morbid obesity Obstructive sleep apnea on CPAP Paroxysmal supraventricular tachycardia Pulmonary embolism Pulmonary hypertension Pulmonary nodules Tobacco abuse Surgical History Surgical History History of wisdom tooth extraction Family History Family History Father Diabetes mellitus Family history of diabetes mellitus in first degree relative Grandparent Family history of malignant neoplasm Other Cerebrovascular accident Family history of cardiovascular disease Family history of kidney disease Hypertension Social History Social History Social History: Surrogate decision maker: Abdelrahman and Chayo Mott, parents. Code status: Full code. Smoking packs per day: 0.75 Smoking cigarettes per day: 15.0 Years smoked: 10 Smoking pack-years: 7.50 Smoking status: Former smoker Tobacco type: cigarettes and cigars Alcohol intake: never Substance use: never Additional living arrangements comments: Resides in [place] with his parents. Additional occupation/education comments: Disabled. Sexual Orientation (if Verbalized by the Patient): Straight or Heterosexual Exam Narrative: GENERAL: This is a well-nourished, obese adult, in no apparent distress. H
[2022-06-21 13:59] LABS: Alanine Aminotransferase 40 U/L (6-50); Albumin Level 4.4 g/dL (3.5-5.1); Alkaline Phosphatase 99 U/L (38-126); Anion Gap 5 mmol/L (8-16); Aspartate Amino Transferase 34 U/L (17-59); Blood Urea Nitrogen 19 mg/dL (9-20); Carbon Dioxide 25 mmol/L (22-30); Chloride 104 mmol/L (98-107); Estimated CRCL calculation 235 ml/min; Estimated Glomerular Filt Rate > 60; Glucose 109 mg/dL (65-110); Lipase 25 U/L (23-300); Potassium 3.9 mmol/L (3.4-5.0); Sodium 134 mmol/L (137-145)
[2022-06-21 14:35] LABS: Appearance Urine Cloudy (Clear); Bacteria Urine None Seen /hpf; Bilirubin Urine 1+ (Negative); Blood Urine Negative (Negative); Color Urine Dark Yellow (Yellow); Glucose Urine UA Negative (Negative); Ketones Urine Negative (Negative); Leukocyte Esterase Ur Trace LEU/UL (Negative); Nitrate Urine Negative (Negative); Protein Urine Trace mg/dL (Negative); RBC Urine 0-2 /hpf (0-2); Specific Grav Ur 1.026 (1.001-1.035); Squamous Epithelial Cell Urine Few /hpf (Few); pH Urine 5.5 (5.0-9.0)
[2022-06-21 14:41] VITALS: BP 131/74; PULSE 84; RESP 18; O2SAT 96
[2022-06-21 14:57] LABS: Add Urine Microscopic? YES
== END 2022-06-21 15:12 | disposition home or self-care (01) ==
PROVIDERS: Emergency Provider Nurse Practitioner Adult Health; PCP Family Medicine
DX: N39.0 Urinary tract infection, site not specified (principal); S39.012A Strain of muscle, fascia and tendon of lower back, initial encounter; J44.9 Chronic obstructive pulmonary disease, unspecified; J96.11 Chronic respiratory failure with hypoxia; I10 Essential (primary) hypertension; E78.5 Hyperlipidemia, unspecified; I27.20 Pulmonary hypertension, unspecified; G47.33 Obstructive sleep apnea (adult) (pediatric); Z99.81 Dependence on supplemental oxygen; Z86.711 Personal history of pulmonary embolism; Z86.718 Personal history of other venous thrombosis and embolism; Z87.891 Personal history of nicotine dependence; Z79.01 Long term (current) use of anticoagulants; K42.9 Umbilical hernia without obstruction or gangrene; X58.XXXA Exposure to other specified factors, initial encounter
CPT/HCPCS: 36415; 74176; 80053; 81001; 83690; 85025; 87077; 87086; 87088; 99284

== ENCOUNTER 2022-10-02 13:21 | Emergency (ER) | payer OTHER, SELFPAY ==
--- NOTE | ~2022-10-02 | XR_ITS ---
EXAMINATION: XR chest 2V Exam Date/Time: 10/02/2022 14:10 CDT HISTORY: SOB. HX COPD. WEARS HOME O2 Comparison: 05/03/2022. RESULT: Lines, tubes, and devices: None. Lungs and pleura: Interval decreased lung volumes with crowding and streaky bibasilar opacities, wit hout focal consolidation. Cardiomediastinal silhouette: Stable. Other: No acute osseous or upper abdominal finding. IMPRESSION: Low lung volumes with bibasilar atelectasis. Infection is not excluded. Reviewed, dictated and finalized at location K.
--- NOTE | 2022-10-02 13:22 | ECG_ITS ---
Measurements Intervals [place] Rate: 76 P: 82 SC: 224 QRS: 27 QRSD: 114 T: 37 QT: 397 QTc: 448 Interpretive Statements SINUS RHYTHM WITH FIRST DEGREE AV BLOCK MODERATE INTRAVENTRICULAR CONDUCTION DELAY [110+ ms QRS DURATION] ABNORMAL ECG COMPARED TO ECG 05/03/2022 11:07:26 FIRST DEGREE AV BLOCK NOW PRESENT Electronically Signed On 10-02-2022 14:39:40 CDT by Jose Alberto Carrington M.D.
[2022-10-02 13:25] VITALS: BP 135/88; PULSE 80; RESP 18; O2SAT 95
[2022-10-02 13:51] LABS: Basophils Percent Auto 0.4 % (0.2-1.2); Eosinophils Absolute Auto 0.1 K/mm3 (0-0.3); Eosinophils Percent Auto 1.9 % (0-4.4); Hematocrit 45.1 % (42.0-52.0); Hemoglobin 15.5 g/dL (14.0-18.0); Immature Granulocyte Absolute 0.04 K/mm3 (0.00-0.031); Immature Granulocyte Percent A 0.5 % (0-0.5); Lymphocytes Absolute Auto 2.36 K/mm3 (0.9-3.2); Lymphocytes Percent Auto 31.3 % (18.3-44.2); Mean Corpuscular HGB Conc 34.4 g/dl (32-36); Mean Corpuscular Hemoglobin 32.3 pg (26-34); Mean Platelet Volume 10.1 fl (7.4-10.4); Monocytes Absolute Auto 0.7 K/mm3 (0.1-0.6); Monocytes Percent Auto 9.1 % (2.6-8.5); Neutrophils Absolute Auto 4.3 K/mm3 (1.3-6.7); Neutrophils Percent Auto 56.8 % (45.5-73.1); Platelet Count Result 155 k/mm3 (150-375); Red Cell Distribution Width 13.1 % (11.5-14.5); White Blood Count 7.6 K/mm3 (4.5-10.0)
[2022-10-02 13:53] VITALS: PULSE 78
--- NOTE | 2022-10-02 13:56 | ED.CHESTPAIN ---
HPI - Chest Pain General Chief Complaint: Chest Pain Stated Complaint: chest pain Time Seen by Provider: 10/02/22 13:43 History of Present Illness HPI narrative: Patient is a 46-year-old male with a history of PE on long-term warfarin, COPD on 3 L nasal cannula chronically here for evaluation of chest burning and tightness for the past 2 weeks. Patient states the pain is only there when he moves his thorax and when he touches the area. He denies exertional component of the pain. no nausea, vomiting, shortness of breath, leg swelling, fevers or chills. Has been compliant with his Warfarin and his INRs have been therapeutic. Related Data Home Medications Medication Instructions Recorded Confirmed chlorthalidone 25 mg tablet 25 mg PO HS 05/14/19 09/17/22 lisinopril 20 mg tablet 10 mg PO HS 05/14/19 09/17/22 meloxicam 7.5 mg tablet 15 mg PO HS 05/14/19 09/17/22 simvastatin 20 mg tablet 20 mg PO HS 05/14/19 09/17/22 warfarin 4 mg tablet 8 mg PO HS 11/28/20 09/17/22 Allergies Allergy/AdvReac Type Severity Reaction Status Date / Time No Known Allergies Allergy Verified 10/02/22 13:48 Review of Systems Review of Systems: Gen: Denies fevers or chills Eyes: Denies eye pain or visual change ENT: Denies congestion Respiratory: Denies shortness of breath or cough CV: Reports chest pain GI: Denies abdominal pain nausea, emesis or diarrhea : denies burning, urgency, frequency or hematuria Musculoskeletal: Denies back pain or muscle pain Neuro: Denies numbness, tingling, weakness or focal weakness Skin: Denies rash Except as documented, all other systems reviewed and negative [facility] Past Medical History Medical History Chronic anticoagulation Long-term warfarin for history of recurrent venous thromboembolism. Previously evaluated by retail customer service representative at [facility] with an unrevealing workup. Chronic obstructive pulmonary disease, unspecified Chronic respiratory failure with hypoxia, on home oxygen therapy Patient on 3 to 5 L nasal cannula. Deep venous thrombosis Dyslipidemia Essential hypertension Morbid obesity Obstructive sleep apnea on CPAP Paroxysmal supraventricular tachycardia Pulmonary embolism Pulmonary hypertension Pulmonary nodules Tobacco abuse Surgical History Surgical History History of wisdom tooth extraction Family History Family History Father Diabetes mellitus Family history of diabetes mellitus in first degree relative Grandparent Family history of malignant neoplasm Other Cerebrovascular accident Family history of cardiovascular disease Family history of kidney disease Hypertension Social History Social History (Updated 09/17/22 @ 14:03 by LELE Roberto) Social History: Surrogate decision maker: Abdelrahman and Chayo Mott, parents. Code status: Full code. Smoking packs per day: 0.75 Smoking cigarettes per day: 15.0 Years smoked: 10 Smoking pack-years: 7.50 Smoking status: Former smoker Tobacco type: cigarettes and cigars Alcohol intake: never Substance use: never Living arrangements: with family Additional living arrangements comments: Resides in [place] with his parents. Additional occupation/education comments: Disabled. Gender identity (if verbalized by the patient): Male Sexual Orientation (if Verbalized by the Patient): Straight or Heterosexual Exam Narrative: APPEARANCE: Morbidly obese but no acute distress Head: Normocephalic and atraumatic. EYES: PERRLA/EOMI, conjunctivae clear NOSE: No nasal drainage EARS: External ear normal in appearance THROAT: Oropharynx is clear. Mucous membranes are moist. NECK: Supple. No adenopathy, no masses. RESPIRATORY: Airway patent, respirations nonlabored. Clear to auscultation bilaterally, no rale
[2022-10-02 14:00] LABS: Alanine Aminotransferase 34 U/L (6-50); Albumin Level 4.1 g/dL (3.5-5.1); Alkaline Phosphatase 92 U/L (38-126); Anion Gap 4 mmol/L (8-16); Aspartate Amino Transferase 30 U/L (17-59); Bilirubin,Total 1.1 mg/dL (0.2-1.3); Blood Urea Nitrogen 22 mg/dL (9-20); Calcium 9.1 mg/dL (8.4-10.2); Carbon Dioxide 28 mmol/L (22-30); Chloride 103 mmol/L (98-107); Estimated CRCL calculation 200 ml/min; Estimated Glomerular Filt Rate > 60; Glucose 109 mg/dL (65-110); Lipase 23 U/L (23-300); Potassium 3.7 mmol/L (3.4-5.0); Sodium 135 mmol/L (137-145)
[2022-10-02 14:01] LABS: INR 1.7; Prothrombin Time 21.6 Seconds (11.1-14.7)
[2022-10-02 14:02] LABS: Partial Thromboplastin Time 31.7 SECONDS (22.3-36.8)
[2022-10-02 14:11] LABS: Troponin I < 0.012 ng/mL (0.000-0.034)
[2022-10-02 15:26] VITALS: BP 127/80; PULSE 68; RESP 18; O2SAT 97
== END 2022-10-02 15:27 | disposition home or self-care (01) ==
PROVIDERS: Emergency Medicine; Emergency Provider Physician Assistant; PCP Family Medicine
DX: R07.9 Chest pain, unspecified (principal); J44.9 Chronic obstructive pulmonary disease, unspecified; E78.5 Hyperlipidemia, unspecified; I10 Essential (primary) hypertension; Z99.81 Dependence on supplemental oxygen; Z79.01 Long term (current) use of anticoagulants; Z86.711 Personal history of pulmonary embolism; Z87.891 Personal history of nicotine dependence
CPT/HCPCS: 36415; 71046; 80053; 83690; 84484; 85025; 85610; 85730; 93005; 99284

== ENCOUNTER 2023-01-02 13:17 | Emergency (ER) | payer OTHER, SELFPAY ==
[2023-01-02] VITALS (24 sets, daily range): BP systolic 119–165; BP diastolic 67–96; PULSE 77; RESP 20; TEMP 37.2; O2SAT 90–96
--- NOTE | ~2023-01-02 | XR_ITS ---
XR chest 2V 01/02/2023 14:48 Indication: Pneumonia. Back pain. Procedure: PA and lateral views of the chest Comparison: Comparison to multiple prior studies sequentially, with oldest reviewed study dated 06/15. Findings: Cardiomegaly with interstitial edema. No pleural effusion or pneumothorax. No acute osseous abnormality. Impression: 1: Cardiomegaly with interstitial edema. Reviewed, dictated and finalized at location L. Impression: 1: Cardiomegaly with interstitial edema.
--- NOTE | 2023-01-02 15:24 | PC.NURSE ---
States that he has stopped taking his prescribed lasix medication within the past 2 weeks.
--- NOTE | 2023-01-02 15:34 | ED.GENADULT ---
HPI - General Adult General Chief complaint: Unspecified Stated complaint: feels like he has pneumonia Time Seen by Provider: 01/02/23 15:34 History of Present Illness HPI narrative: Patient is a 47 year old male with history of COPD, PE/DVT here with left posterior chest pain. He notes the pain began over the weekend last weekend. Chest pain is described as a burning sensation, non radiating. He notes that he pulled a muscle in his lower back a few days prior and was unsure if it was related. He denies any shortness of breath. This feels similar to when he has had pneumonia or CHF in the past. He does note that over the last several weeks he quit taking his diuretics because it made his bladder hurt when he used the bathroom. He denies any current dysuria. No fever, chills, cough, congestion. He has been otherwise compliant with medications including his coumadin which he monitors closely with his PCP. Related Data Home Medications Medication Instructions Recorded Confirmed chlorthalidone 25 mg tablet 25 mg PO HS 05/14/19 11/21/22 lisinopril 20 mg tablet 10 mg PO HS 05/14/19 11/21/22 meloxicam 7.5 mg tablet 15 mg PO HS 05/14/19 11/21/22 simvastatin 20 mg tablet 20 mg PO HS 05/14/19 11/21/22 warfarin 4 mg tablet 8 mg PO HS 11/28/20 11/21/22 Allergies Allergy/AdvReac Type Severity Reaction Status Date / Time No Known Allergies Allergy Verified 11/21/22 13:57 Review of Systems Review of Systems: CONSTITUTIONAL: Denies fever, chills, or sweats. EYES: Denies visual changes, redness, or discharge. ENT: Denies rhinorrhea, congestion, sore throat, or otalgia. CARDIOVASCULAR: chest pain, no palpitations, or edema. RESPIRATORY: Denies cough or dyspnea. GASTROINTESTINAL: Denies abdominal pain, nausea, vomiting, or diarrhea. GENITOURINARY: Denies dysuria or hematuria. SKIN: Denies rash or itching. MUSCULOSKELETAL: Denies back pain, joint pain, or myalgia. NEUROLOGIC: Denies headache, numbness, or weakness. PSYCHIATRIC: Denies anxiety or depression. [facility] Past Medical History Medical History Chronic anticoagulation Long-term warfarin for history of recurrent venous thromboembolism. Previously evaluated by instrument operator at [facility] with an unrevealing workup. Chronic obstructive pulmonary disease, unspecified Chronic respiratory failure with hypoxia, on home oxygen therapy Patient on 3 to 5 L nasal cannula. Deep venous thrombosis Dyslipidemia Essential hypertension Morbid obesity Obstructive sleep apnea on CPAP Paroxysmal supraventricular tachycardia Pulmonary embolism Pulmonary hypertension Pulmonary nodules Tobacco abuse Surgical History Surgical History History of wisdom tooth extraction Family History Family History Father Diabetes mellitus Family history of diabetes mellitus in first degree relative Grandparent Family history of malignant neoplasm Other Cerebrovascular accident Family history of cardiovascular disease Family history of kidney disease Hypertension Social History Social History Social History: Surrogate decision maker: Abdelrahman and Chayo Mott, parents. Code status: Full code. Smoking packs per day: 0.75 Smoking cigarettes per day: 15.0 Years smoked: 10 Smoking pack-years: 7.50 Smoking status: Former smoker Tobacco type: cigarettes and cigars Alcohol intake: never Substance use: never Living arrangements: with family Additional living arrangements comments: Resides in [place] with his parents. Additional occupation/education comments: Disabled. Gender identity (if verbalized by the patient): Male Sexual Orientation (if Verbalized by the Patient): Straight or Heterosexual Exam Narrative: GENERAL: We
--- NOTE | 2023-01-02 15:37 | ECG_ITS ---
Measurements Intervals [place] Rate: 74 P: 61 [place]: 206 QRS: 35 QRSD: 112 T: 49 QT: 409 QTc: 456 Interpretive Statements SINUS RHYTHM INCOMPLETE RIGHT BUNDLE BRANCH BLOCK BASELINE ARTIFACT- I, III, AVL, V4 BORDERLINE ECG COMPARED TO ECG 10/02/2022 13:29:03 NO SIGNIFICANT CHANGES Electronically Signed On 01-02-2023 20:28:25 CDT by Ben Nam D.O.
[2023-01-02 16:18] LABS: Basophils Percent Auto 0.4 % (0.2-1.2); Eosinophils Absolute Auto 0.1 K/mm3 (0-0.3); Eosinophils Percent Auto 1.5 % (0-4.4); Hematocrit 44.9 % (42.0-52.0); Hemoglobin 14.9 g/dL (14.0-18.0); Immature Granulocyte Absolute 0.05 K/mm3 (0.00-0.031); Immature Granulocyte Percent A 0.7 % (0-0.5); Immature Platelet Fraction Pct 3.8 % (0.9-11.2); Lymphocytes Absolute Auto 1.54 K/mm3 (0.9-3.2); Mean Corpuscular HGB Conc 33.2 g/dl (32-36); Mean Corpuscular Volume 96.4 fl (80-100); Mean Platelet Volume 10.2 fl (7.4-10.4); Monocytes Absolute Auto 0.6 K/mm3 (0.1-0.6); Monocytes Percent Auto 8.8 % (2.6-8.5); Neutrophils Absolute Auto 4.4 K/mm3 (1.3-6.7); Neutrophils Percent Auto 65.6 % (45.5-73.1); Platelet Count Result 143 k/mm3 (150-375); Red Blood Count 4.66 M/mm3 (4.6-6.20); Red Cell Distribution Width 13.5 % (11.5-14.5); White Blood Count 6.7 K/mm3 (4.5-10.0)
[2023-01-02 16:28] LABS: Alanine Aminotransferase 31 U/L (6-50); Albumin Level 3.8 g/dL (3.5-5.1); Alkaline Phosphatase 90 U/L (38-126); Anion Gap 7 mmol/L (8-16); Aspartate Amino Transferase 34 U/L (17-59); Bilirubin,Total 0.9 mg/dL (0.2-1.3); Blood Urea Nitrogen 19 mg/dL (9-20); Calcium 8.7 mg/dL (8.4-10.2); Carbon Dioxide 27 mmol/L (22-30); Chloride 106 mmol/L (98-107); Estimated CRCL calculation 228 ml/min; Estimated Glomerular Filt Rate > 60; Glucose 100 mg/dL (65-110); Potassium 4.3 mmol/L (3.4-5.0); Sodium 140 mmol/L (137-145)
[2023-01-02 16:35] LABS: INR 1.8; Prothrombin Time 21.5 Seconds (11.1-14.7)
[2023-01-02 16:36] LABS: Partial Thromboplastin Time 31.1 SECONDS (22.3-36.8)
[2023-01-02 16:39] LABS: NT Pro B Type Natriuretic Pept 227 pg/mL (19.9-100); Troponin I < 0.012 ng/mL (0.000-0.034)
[2023-01-02 17:49] LABS: Appearance Urine Clear (Clear); Bacteria Urine 1+ /hpf; Bilirubin Urine Negative (Negative); Blood Urine Negative (Negative); Color Urine Yellow (Yellow); Glucose Urine UA Negative (Negative); Ketones Urine Negative (Negative); Leukocyte Esterase Ur 1+ LEU/UL (Negative); Nitrate Urine Negative (Negative); Non Pathogenic Casts 0-2; Protein Urine Negative (Negative); RBC Urine 0-2 /hpf (0-2); Specific Grav Ur 1.023 (1.001-1.035); Squamous Epithelial Cell Urine Occasional /hpf (Few); Urobilinogen Urine 0.2 mg/dL (<2.0); pH Urine 5.5 (5.0-9.0)
[2023-01-02 18:04] LABS: Add Urine Microscopic? YES
== END 2023-01-02 18:45 | disposition home or self-care (01) ==
PROVIDERS: Emergency Provider Student in an Organized Health Care Education/Training Program; PCP Family Medicine
DX: J81.0 Acute pulmonary edema (principal); R07.89 Other chest pain; N39.0 Urinary tract infection, site not specified; J44.9 Chronic obstructive pulmonary disease, unspecified; J96.11 Chronic respiratory failure with hypoxia; E78.5 Hyperlipidemia, unspecified; I10 Essential (primary) hypertension; I27.20 Pulmonary hypertension, unspecified; G47.33 Obstructive sleep apnea (adult) (pediatric); Z99.81 Dependence on supplemental oxygen; Z87.01 Personal history of pneumonia (recurrent); Z86.718 Personal history of other venous thrombosis and embolism; Z86.711 Personal history of pulmonary embolism; Z87.891 Personal history of nicotine dependence; Z79.01 Long term (current) use of anticoagulants; I45.10 Unspecified right bundle-branch block
CPT/HCPCS: 36415; 71046; 80053; 81001; 83735; 83880; 84484; 85025; 85055; 85610; 85730; 87086; 87088; 93005; 99284

== ENCOUNTER 2023-03-19 10:59 | Emergency (ER) | payer OTHER, SELFPAY ==
--- NOTE | ~2023-03-19 | XR_ITS ---
EXAMINATION: XR chest 2V DATE: 03/19/2023 11:38 INDICATION: Shortness of breath. TECHNIQUE: Frontal and lateral views of the chest were obtained on 3 radiographs. COMPARISON: Chest 2 views 01/02/2023, CT abdomen and pelvis 06/21/2022 FINDINGS: Sensitivity is decreased by obesity. There is no pneumonia, pleural effusion, or pneumothor ax. The heart size is normal. There is a prominent left paracardial fat pad. There is mild chronic he ight loss of multiple vertebral bodies. IMPRESSION: 1. No acute cardiopulmonary disease. Reviewed, dictated and finalized at location A. TUTOR
--- NOTE | 2023-03-19 11:05 | ECG_ITS ---
Measurements Intervals [place] Rate: 98 P: 101 ND: 228 QRS: 62 QRSD: 105 T: 49 QT: 357 QTc: 457 Interpretive Statements SINUS RHYTHM WITH FIRST DEGREE AV BLOCK ABNORMAL ECG COMPARED TO ECG 01/02/2023 15:54:23 FIRST DEGREE AV BLOCK NOW PRESENT Electronically Signed On 03-19-2023 16:18:27 RN LPN LVN by Jose Alberto Carrington M.D.
[2023-03-19 11:06] VITALS: BP 156/101; PULSE 99; RESP 21; TEMP 36.6; O2SAT 98
[2023-03-19 11:10] VITALS: PULSE 98
[2023-03-19 11:30] LABS: Basophils Percent Auto 0.4 % (0.2-1.2); Eosinophils Absolute Auto 0.1 K/mm3 (0-0.3); Eosinophils Percent Auto 1.7 % (0-4.4); Hematocrit 45.6 % (42.0-52.0); Hemoglobin 15.5 g/dL (14.0-18.0); Immature Granulocyte Absolute 0.09 K/mm3 (0.00-0.031); Immature Granulocyte Percent A 1.1 % (0-0.5); Lymphocytes Absolute Auto 1.97 K/mm3 (0.9-3.2); Lymphocytes Percent Auto 24.2 % (18.3-44.2); Mean Corpuscular Hemoglobin 31.6 pg (26-34); Mean Corpuscular Volume 93.1 fl (80-100); Mean Platelet Volume 10.2 fl (7.4-10.4); Monocytes Absolute Auto 0.9 K/mm3 (0.1-0.6); Monocytes Percent Auto 10.6 % (2.6-8.5); Platelet Count Result 166 k/mm3 (150-375); Red Cell Distribution Width 13.1 % (11.5-14.5); White Blood Count 8.1 K/mm3 (4.5-10.0)
[2023-03-19 11:39] LABS: Alanine Aminotransferase 29 U/L (6-50); Albumin Level 3.9 g/dL (3.5-5.1); Alkaline Phosphatase 160 U/L (38-126); Anion Gap 5 mmol/L (8-16); Aspartate Amino Transferase 31 U/L (17-59); Bilirubin,Total 0.7 mg/dL (0.2-1.3); Blood Urea Nitrogen 28 mg/dL (9-20); Calcium 9.1 mg/dL (8.4-10.2); Carbon Dioxide 26 mmol/L (22-30); Chloride 106 mmol/L (98-107); Estimated CRCL calculation 264 ml/min; Estimated Glomerular Filt Rate > 60; Glucose 142 mg/dL (65-110); Potassium 3.8 mmol/L (3.4-5.0); Sodium 137 mmol/L (137-145)
[2023-03-19 12:15] VITALS: BP 137/84; PULSE 93; RESP 20; O2SAT 92
[2023-03-19 12:20] LABS: Influenza A QL RT-PCR Negative (Negative); Influenza B QL RT-PCR Negative (Negative); SARS-CoV-2 RNA PCR Negative (Negative)
--- NOTE | 2023-03-19 13:35 | ED.SOB ---
HPI - SOB/Dyspnea General Chief Complaint: Shortness of Breath/Dyspnea Stated Complaint: SOB,PALPATATIONS Time Seen by Provider: 03/19/23 11:16 History of Present Illness HPI Narrative: patient is a 47-year-old male who presents to the ER with shortness of breath. Ongoing over last 2 days. He wears oxygen with exertion. I rest he requires no oxygen. He has had some congestion room with discomfort in his throat. Reports mild burning in his back today and noted that his heart rate was >100. He was concerned he may have pneumonia. No fevers or chills or sweats. Reports his last INR was 3.0 on Friday. He has had no issues with anticoagulation in months. Has no pain with deep breath. No hemoptysis. No productive cough. Patient was also concerned due to history of SVT in since his heart rate was up to 120 beats per minute Related Data Home Medications Medication Instructions Recorded Confirmed chlorthalidone 25 mg tablet 25 mg PO HS 05/14/19 11/21/22 lisinopril 20 mg tablet 10 mg PO HS 05/14/19 11/21/22 meloxicam 7.5 mg tablet 15 mg PO HS 05/14/19 11/21/22 simvastatin 20 mg tablet 20 mg PO HS 05/14/19 11/21/22 warfarin 4 mg tablet 8 mg PO HS 11/28/20 11/21/22 Allergies Allergy/AdvReac Type Severity Reaction Status Date / Time No Known Allergies Allergy Verified 03/19/23 11:11 Review of Systems Review of Systems: All systems reviewed & are unremarkable except as noted in HPI and below Constitutional: Constitutional: Denies chills, Reports fatigue and Denies fever(s) ENT: Reports nasal congestion and Reports sore throat Cardiovascular: Cardiovascular: Denies chest pain, Reports rapid heart rate and Denies radiating jaw, neck or arm pain Respiratory: Respiratory: Denies cough, Reports dyspnea and Denies wheezing Gastrointestinal: Gastrointestinal: Reports no additional gastrointestinal complaints Genitourinary: Genitourinary: Reports no additional male genitourinary complaints [facility] Past Medical History Medical History Chronic anticoagulation Long-term warfarin for history of recurrent venous thromboembolism. Previously evaluated by inspector aluminum boat at [facility] with an unrevealing workup. Chronic obstructive pulmonary disease, unspecified Chronic respiratory failure with hypoxia, on home oxygen therapy Patient on 3 to 5 L nasal cannula. Deep venous thrombosis Dyslipidemia Essential hypertension Morbid obesity Obstructive sleep apnea on CPAP Paroxysmal supraventricular tachycardia Pulmonary embolism Pulmonary hypertension Pulmonary nodules Tobacco abuse Surgical History Surgical History History of wisdom tooth extraction Family History Family History Father Diabetes mellitus Family history of diabetes mellitus in first degree relative Grandparent Family history of malignant neoplasm Other Cerebrovascular accident Family history of cardiovascular disease Family history of kidney disease Hypertension Social History Social History Social History: Surrogate decision maker: Abdelrahman and Chayo Mott, parents. Code status: Full code. Smoking packs per day: 0.75 Smoking cigarettes per day: 15.0 Years smoked: 10 Smoking pack-years: 7.50 Smoking status: Former smoker Tobacco type: cigarettes and cigars Alcohol intake: never Substance use: never Living arrangements: with family Additional living arrangements comments: Resides in [place] with his parents. Additional occupation/education comments: Disabled. Gender identity (if verbalized by the patient): Male Sexual Orientation (if Verbalized by the Patient): Straight or Heterosexual Exam Narrative: GENERAL: Well-appearing, morbidly obese, and in no acute distress.
== END 2023-03-19 14:19 | disposition home or self-care (01) ==
PROVIDERS: Emergency Provider Emergency Medicine; PCP Family Medicine
DX: B34.9 Viral infection, unspecified (principal); Z20.822 Contact with and (suspected) exposure to COVID-19; J44.9 Chronic obstructive pulmonary disease, unspecified; J96.11 Chronic respiratory failure with hypoxia; Z99.81 Dependence on supplemental oxygen; I10 Essential (primary) hypertension; I27.20 Pulmonary hypertension, unspecified; E78.5 Hyperlipidemia, unspecified; G47.33 Obstructive sleep apnea (adult) (pediatric); Z86.711 Personal history of pulmonary embolism; Z86.718 Personal history of other venous thrombosis and embolism; Z87.891 Personal history of nicotine dependence; I44.0 Atrioventricular block, first degree
CPT/HCPCS: 36415; 71046; 80053; 85025; 87636; 93005; 99284

== ENCOUNTER 2023-04-09 08:35 | Outpatient (CLI) | payer OTHER, SELFPAY ==
[2023-04-09 08:30] VITALS: PULSE 91; PULSE 92; O2SAT 84; O2SAT 85
[2023-04-09 08:40] VITALS: PULSE 93; O2SAT 86
[2023-04-09 08:45] VITALS: PULSE 91; O2SAT 86
[2023-04-09 08:50] VITALS: PULSE 92; O2SAT 91
[2023-04-09 09:05] VITALS: PULSE 103; O2SAT 91
[2023-04-09 09:10] VITALS: PULSE 91; O2SAT 92
--- NOTE | 2023-04-09 09:16 | HOMEO2EVAL ---
Evaluation was performed at [facility] Home Oxygen Evaluation RC: Home Oxygen (O2) Evaluation Start: 04/09/23 09:12 Freq: Status: Active Protocol: RPE Activity Type Activity Date Activity User E-sign Co-sign Detail Recorded Client Recorded Date Recorded By Document 04/09/23 08:30 [email or web address] 04/09/23 09:16 PKH Document 04/09/23 08:30 [email or web address] 04/09/23 09:16 PKH Document 04/09/23 08:40 [email or web address] [email or web address] 04/09/23 09:16 PKH Document 04/09/23 08:45 [email or web address] [email or web address] 04/09/23 09:16 PKH Document 04/09/23 08:50 [email or web address] [email or web address] 04/09/23 09:16 PKH Document 04/09/23 09:05 [email or web address] [email or web address] 04/09/23 09:16 PKH Document 04/09/23 09:10 [email or web address] [email or web address] 04/09/23 09:16 PKH 04/09/23 04/09/23 04/09/23 08:30 08:30 08:40 Home O2 Evaluation [Oxygen] -Test Phase Resting Resting Resting -Oxygen Delivery Room Air Nasal Cannula Nasal Cannula -Oxygen Flow Rate (L/min) 1 2 [Pulse Oximetry] -Pulse Oximetry (90-100 %) 84 L 85 L 86 L [Pulse Rate] -Pulse Rate (60-100 beats/min) 92 91 93 04/09/23 04/09/23 04/09/23 08:45 08:50 09:05 Home O2 Evaluation [Oxygen] -Test Phase Resting Resting Exercise -Oxygen Delivery Nasal Cannula Nasal Cannula Nasal Cannula -Oxygen Flow Rate (L/min) 3 4 4 [Pulse Oximetry] -Pulse Oximetry (90-100 %) 86 L 91 91 [Pulse Rate] -Pulse Rate (60-100 beats/min) 91 92 103 H 04/09/23 09:10 Home O2 Evaluation [Oxygen] -Test Phase Resting -Oxygen Delivery Nasal Cannula -Oxygen Flow Rate (L/min) 4 [Pulse Oximetry] -Pulse Oximetry (90-100 %) 92 [Pulse Rate] -Pulse Rate (60-100 beats/min) 91
--- NOTE | 2023-04-09 09:18 | PCRCNOTE ---
Home O2 eval complete.Patient requires 4 LPM with rest juan activity.
== END 2023-04-09 08:36 | disposition home or self-care (01) ==
PROVIDERS: PCP Family Medicine; Visit Provider Nurse Practitioner Family
DX: J96.11 Chronic respiratory failure with hypoxia (principal); Z99.81 Dependence on supplemental oxygen
CPT/HCPCS: 94618

== ENCOUNTER 2023-08-10 13:03 | Emergency (ER) | payer OTHER, SELFPAY ==
--- NOTE | ~2023-08-10 | CT_ITS ---
EXAMINATION: CT abd pelvis lumbar wo con DATE: 08/10/2023 14:40 INDICATION: Nontraumatic lower back pain and urinary frequency TECHNIQUE: Computed tomography (CT) of the abdomen, pelvis and lumbar spine was performed without int ravenous contrast. Automated exposure control and iterative reconstruction technique were employed. T macho dose-length product was 1756.68 mGy-cm. COMPARISON: 06/21/2022 FINDINGS: Abdomen and pelvis: Minimal dependent atelectasis in bilateral lower lobes. Heart size is normal. Small amount of atheros clerotic coronary artery calcification. No pericardial or pleural effusion. Liver, gallbladder, splee n and bilateral adrenal glands are normal. There is diffuse fatty infiltration of the pancreas. Kidne ys and ureters are normal with no urolithiasis, hydroureteronephrosis or perinephric/ureteral strandi ng. A short segment of the sigmoid colon extends into a moderate-sized umbilical hernia which measure s 10.3 x 7.8 x 9.3 cm with a 3.6 x 2.8 cm os. Bowels including the appendix are otherwise normal with no abnormal wall thickening or obstruction. Bladder is normal. No free intraperitoneal gas or fluid. No pathologically enlarged abdominal or pelvic lymphadenopathy. There is mildly increased fat within the bilateral inguinal canals which could be related to either body habitus or small fat-containing inguinal hernias. Lumbar spine: Alignment is normal. Chronic appearing mild likely physiologic anterior wedging at T12. Lumbar verteb ral body heights are normal. No evident acute fracture or pars interarticularis defects. Moderate dis c height loss with vacuum phenomena at L1-L2 and at T11-T12. Mild disc height loss at T12-L1 and at L 2-L3 through L5-S1. The osseous central canal of the lumbar spine appears congenitally small with rakesh rt pedicles. Evaluation of the soft tissues is significantly limited by quantum mottle resulting from patient body habitus which precludes assessment for disc bulges or additional discogenic narrowing o f the central canal or neural foramina. There is moderate bilateral multilevel lumbar facet osteoarth ritis with at least mild neural foraminal stenosis bilaterally at each of the lumbar neural foramina. IMPRESSION: 1. Short segment of nonobstructed sigmoid colon extends into a moderate-sized umbilical hernia. No ac peña intra-abdominal/pelvic process. 2. Moderate lumbar spondylosis. No acute osseous abnormality. Evaluation particularly of disks for di scogenic central canal and neural foraminal stenosis is limited by marilyn yates related to patient body habitus. Reviewed, dictated and finalized at location A. IMPRESSION: 1. Short segment of nonobstructed sigmoid colon extends into a moderate-sized u mbilical hernia. No acute intra-abdominal/pelvic process. 2. Moderate lumbar spondylosis. No acute osseous abnormality. Evaluation partic ularly of disks for discogenic central canal and neural foraminal stenosis is l imited by marilyn yates related to patient body habitus.
[2023-08-10 13:12] VITALS: BP 142/98; PULSE 77; RESP 16; TEMP 37; O2SAT 97
--- NOTE | 2023-08-10 13:44 | ED.BACK ---
HPI - Back Pain/Injury General Chief Complaint: Back Pain/Injury Stated Complaint: flank and side pain Time Seen by Provider: 08/10/23 13:31 Source: patient Mode of arrival: ambulatory Limitations: no limitations History of Present Illness HPI Narrative: 47 YEARS OLD WHITE MALE, MORBIDLY OBESE 232 KG PRESENT WITH LOWER BACK PAIN STARTED FEW DAYS AGO WITH INCREASED URINATION. HE DENIES ANY FEVER, CHILLS, NAUSEA, VOMITING. PATIENT LEANED FORWARD TO MEDICAL SALES SOMETHING OF THE FLOOR FEW DAYS AGO WHICH COULD BE THE UNDERLYING CAUSE. PATIENT ON COUMADIN FOR PULMONARY EMBOLISM, INR WAS 2.47 DAYS AGO HISTORY OF HYPERTENSION, HYPERLIPIDEMIA, COPD ON 2 L OXYGEN. PATIENT CURRENTLY ON MELOXICAM Related Data Home Medications Medication Instructions Recorded Confirmed chlorthalidone 25 mg tablet 25 mg PO HS 05/14/19 05/30/23 lisinopril 20 mg tablet 10 mg PO HS 05/14/19 05/30/23 meloxicam 7.5 mg tablet 15 mg PO HS 05/14/19 05/30/23 simvastatin 20 mg tablet 20 mg PO HS 05/14/19 05/30/23 warfarin 4 mg tablet 8 mg PO HS 11/28/20 05/30/23 Allergies Allergy/AdvReac Type Severity Reaction Status Date / Time No Known Allergies Allergy Verified 08/10/23 13:15 Review of Systems Review of Systems: All systems reviewed & are unremarkable except as noted in HPI and below PMFSH Past Medical History Medical History Chronic anticoagulation Long-term warfarin for history of recurrent venous thromboembolism. Previously evaluated by handle attacher at [facility] with an unrevealing workup. Chronic obstructive pulmonary disease, unspecified Chronic respiratory failure with hypoxia, on home oxygen therapy Patient on 3 to 5 L nasal cannula. Deep venous thrombosis Dyslipidemia Essential hypertension Morbid obesity Obstructive sleep apnea on CPAP Paroxysmal supraventricular tachycardia Pulmonary embolism Pulmonary hypertension Pulmonary nodules Tobacco abuse Surgical History Surgical History History of wisdom tooth extraction Family History Family History Father Diabetes mellitus Family history of diabetes mellitus in first degree relative Grandparent Family history of malignant neoplasm Other Cerebrovascular accident Family history of cardiovascular disease Family history of kidney disease Hypertension Social History Social History Social History: Surrogate decision maker: Abdelrahman and Chayo Mott, parents. Code status: Full code. Smoking packs per day: 0.75 Smoking cigarettes per day: 15.0 Years smoked: 10 Smoking pack-years: 7.50 Smoking status: Former smoker Tobacco type: cigarettes and cigars Alcohol intake: never Substance use: never Do You Feel Safe in your Home?: Yes Lack of Transportation: No Lack of Food: Never True Current Housing: I Have Housing Concerned About Future Housing: No Difficulty Paying Gas/Electric Bills: No Difficulty Paying for Meds: No Currently Unemployed: No Education: High School Diploma/GED Difficulty w/ Childcare or Family Care: No Living arrangements: with family Additional living arrangements comments: Resides in [place] with his parents. Additional occupation/education comments: Disabled. Gender identity (if verbalized by the patient): Male Sexual Orientation (if Verbalized by the Patient): Straight or Heterosexual Exam Narrative: GENERAL APPEARANCE: WELL-DEVELOPED, WELL-NOURISHED SKIN: NORMAL COLOR HEAD: NORMOCEPHALIC, NONTRAUMATIC EYES: CLEAR CONJUNCTIVA ENT: OROPHARYNX NORMAL, EARS NORMAL, NOSE NORMAL NECK: SUPPLE, NONTENDER CHEST AND RESPIRATORY: AIRWAY PATENT, NO RESPIRATORY DISTRESS, NO ACCESSORY MUSCLE USE HEART: REGULAR RATE/RHYTHM ABDOMEN: SOFT, NONTENDER, NO ORGANOMEGALY, QUIET BOWEL SOUNDS VASCUL
--- NOTE | 2023-08-10 14:30 | PC.NURSE ---
Pt voices unable to urinate at this time for specimen
[2023-08-10 15:28] LABS: Appearance Urine Clear (Clear); Bilirubin Urine Negative (Negative); Blood Urine Negative (Negative); Color Urine Yellow (Yellow); Glucose Urine UA Negative (Negative); Ketones Urine Negative (Negative); Leukocyte Esterase Ur Negative LEU/UL (Negative); Nitrate Urine Negative (Negative); Protein Urine Negative (Negative); Specific Grav Ur 1.024 (1.001-1.035)
[2023-08-10 15:36] LABS: Add Urine Microscopic? NO
[2023-08-10 16:35] VITALS: BP 145/88; PULSE 86; RESP 20; TEMP 37; O2SAT 98
== END 2023-08-10 16:37 | disposition home or self-care (01) ==
PROVIDERS: Emergency Medicine; Emergency Provider Emergency Medicine; PCP Family Medicine
DX: M54.50 Low back pain, unspecified (principal); G89.29 Other chronic pain; J44.9 Chronic obstructive pulmonary disease, unspecified; J96.11 Chronic respiratory failure with hypoxia; Z99.81 Dependence on supplemental oxygen; E66.01 Morbid (severe) obesity due to excess calories; Z68.44 Body mass index [BMI] 60.0-69.9, adult; E78.5 Hyperlipidemia, unspecified; I10 Essential (primary) hypertension; I27.20 Pulmonary hypertension, unspecified; G47.33 Obstructive sleep apnea (adult) (pediatric); Z86.711 Personal history of pulmonary embolism; Z86.718 Personal history of other venous thrombosis and embolism; Z87.891 Personal history of nicotine dependence; Z79.01 Long term (current) use of anticoagulants; K42.9 Umbilical hernia without obstruction or gangrene; M47.816 Spondylosis without myelopathy or radiculopathy, lumbar region
CPT/HCPCS: 72131; 74176; 81003; 99284

== ENCOUNTER 2023-11-19 13:15 | Emergency (ER) | payer OTHER, SELFPAY ==
--- NOTE | ~2023-11-19 | XR_ITS ---
EXAMINATION: XR chest 1V portable DATE: 11/19/2023 14:42 INDICATION: Left upper back pain. Productive cough. TECHNIQUE: A single frontal view of the chest was obtained on 4 radiographs. COMPARISON: Chest 2 views 03/19/2023, CT abdomen and pelvis 08/10/2023 FINDINGS: There is mild atelectasis in the lower lung zones. No pleural effusion or pneumothorax. The heart size is normal. There are prominent pericardial fat pads. IMPRESSION: 1. Mild atelectasis in the lower lung zones. Reviewed, dictated and finalized at location A.
[2023-11-19 13:20] VITALS: BP 156/81; PULSE 82; RESP 21; TEMP 36.8; O2SAT 95
[2023-11-19 13:31] VITALS: BP 110/75; PULSE 78; RESP 20; TEMP 37.1; O2SAT 94
--- NOTE | 2023-11-19 13:37 | ECG_ITS ---
Test Date: 2023-11-19 13:43:14 Measurements Intervals [place] Rate: 71 P: 114 [place]: 211 QRS: 40 QRSD: 112 T: 48 QT: 411 QTc: 448 Interpretive Statements SINUS RHYTHM WITH FIRST DEGREE AV BLOCK WITH OCCASIONAL VENTRICULAR PREMATURE COMPLEXES LOW QRS VOLTAGE IN PRECORDIAL LEADS [QRS DEFLECTION < 1.0 mV IN CHEST LEADS] No previous ECG available for comparison Electronically Signed On 11-20-2023 09:48:32 CDT by Liliana Renee M.D.
--- NOTE | 2023-11-19 13:48 | ED.GENADULT ---
HPI - General Adult General Chief complaint: Nausea/Vomiting/Diarrhea Stated complaint: nauseated, dizziness Time Seen by Provider: 11/19/23 13:24 History of Present Illness HPI narrative: This is a 48-year-old morbidly obese male with history of COPD and chronic respiratory failure presenting for not feeling well. He says he has felt under the weather for the last 2 weeks. Symptoms include some fatigue nausea but no vomiting, diarrhea which is normal for him and chest congestion. Yesterday he developed a burning sensation in his left is concerned she may have pneumonia again. He has a productive cough clear sputum which is normal for him. Patient denies fevers, shortness of breath, abdominal pain urinary symptoms or lower extremity edema. Related Data Home Medications Medication Instructions Recorded Confirmed chlorthalidone 25 mg tablet 25 mg PO HS 05/14/19 05/30/23 lisinopril 20 mg tablet 10 mg PO HS 05/14/19 05/30/23 meloxicam 7.5 mg tablet 15 mg PO HS 05/14/19 05/30/23 simvastatin 20 mg tablet 20 mg PO HS 05/14/19 05/30/23 warfarin 4 mg tablet 8 mg PO HS 11/28/20 05/30/23 Allergies Allergy/AdvReac Type Severity Reaction Status Date / Time No Known Allergies Allergy Verified 08/10/23 13:15 [facility] Past Medical History Medical History Chronic anticoagulation Long-term warfarin for history of recurrent venous thromboembolism. Previously evaluated by registered dental hygienist at [facility] with an unrevealing workup. Chronic obstructive pulmonary disease, unspecified Chronic respiratory failure with hypoxia, on home oxygen therapy Patient on 3 to 5 L nasal cannula. Deep venous thrombosis Dyslipidemia Essential hypertension Morbid obesity Obstructive sleep apnea on CPAP Paroxysmal supraventricular tachycardia Pulmonary embolism Pulmonary hypertension Pulmonary nodules Tobacco abuse Surgical History Surgical History History of wisdom tooth extraction Family History Family History Father Diabetes mellitus Family history of diabetes mellitus in first degree relative Grandparent Family history of malignant neoplasm Other Cerebrovascular accident Family history of cardiovascular disease Family history of kidney disease Hypertension Social History Social History Social History: Surrogate decision maker: Abdelrahman and Chayo Mott, parents. Code status: Full code. Smoking packs per day: 0.75 Smoking cigarettes per day: 15.0 Years smoked: 10 Smoking pack-years: 7.50 Smoking status: Former smoker Tobacco type: cigarettes and cigars Alcohol intake: never Substance use: never Do You Feel Safe in your Home?: Yes Lack of Transportation: No Lack of Food: Never True Current Housing: I Have Housing Concerned About Future Housing: No Difficulty Paying Gas/Electric Bills: No Difficulty Paying for Meds: No Currently Unemployed: No Education: High School Diploma/GED Difficulty w/ Childcare or Family Care: No Living arrangements: with family Additional living arrangements comments: Resides in [place] with his parents. Additional occupation/education comments: Disabled. Gender identity (if verbalized by the patient): Male Sexual Orientation (if Verbalized by the Patient): Straight or Heterosexual Exam Narrative: APPEARANCE: No apparent distress. Morbidly obese Head: atraumatic. EYES: EOMI, NOSE: Atraumatic NECK: Trachea midline RESPIRATORY: No increased rate of breathing, clear to auscultation, not using supplemental oxygen saturating well on room CARDIOVASCULAR: RRR, peripheral edema ABDOMINAL: Soft nontender, exam severely limited by body habitus MUSCULOSKELETAl: No obvious deformities NEURO: Alert. Moving 4/4 extremities SKIN:: Wa
[2023-11-19] MEDS: SODIUM CHLORIDE 0.9% IV 2,000 ML 999 ML IV CONT (13:56)
--- NOTE | 2023-11-19 13:58 | PC.NURSE ---
pt offered tylenol and refused at this time. patient denies being in enough pain to take anything for pain.
[2023-11-19 14:00] LABS: Basophils Percent Auto 0.3 % (0.2-1.2); Eosinophils Absolute Auto 0.1 K/mm3 (0-0.3); Eosinophils Percent Auto 1.5 % (0-4.4); Hematocrit 45.7 % (42.0-52.0); Hemoglobin 16.1 g/dL (14.0-18.0); Immature Granulocyte Absolute 0.02 K/mm3 (0.00-0.031); Immature Granulocyte Percent A 0.3 % (0-0.5); Lymphocytes Absolute Auto 1.53 K/mm3 (0.9-3.2); Lymphocytes Percent Auto 21.2 % (18.3-44.2); Mean Corpuscular HGB Conc 35.2 g/dl (32-36); Mean Corpuscular Hemoglobin 32.5 pg (26-34); Mean Corpuscular Volume 92.3 fl (80-100); Monocytes Absolute Auto 0.7 K/mm3 (0.1-0.6); Neutrophils Absolute Auto 4.9 K/mm3 (1.3-6.7); Neutrophils Percent Auto 67.7 % (45.5-73.1); Platelet Count Result 177 k/mm3 (150-375); Red Blood Count 4.95 M/mm3 (4.6-6.20); Red Cell Distribution Width 12.7 % (11.5-14.5); White Blood Count 7.2 K/mm3 (4.5-10.0)
--- NOTE | 2023-11-19 14:07 | PC.NURSE ---
Pt aware that a urine specimen is needed. patient states that he is unable to urinate at this time, after he gets some fluids he believes that he will be able to provide sample.
[2023-11-19 14:08] LABS: Lactic Acid Reflex 1.4 mmol/L (0.7-2.0)
[2023-11-19 14:10] LABS: Alanine Aminotransferase 31 U/L (6-50); Albumin Level 4.1 g/dL (3.5-5.1); Alkaline Phosphatase 99 U/L (38-126); Anion Gap 9 mmol/L (4-12); Aspartate Amino Transferase 34 U/L (17-59); Blood Urea Nitrogen 22 mg/dL (9-20); Calcium 8.8 mg/dL (8.4-10.2); Carbon Dioxide 26 mmol/L (22-30); Chloride 100 mmol/L (98-107); Estimated CRCL calculation 180 ml/min; Estimated Glomerular Filt Rate > 60; Glucose 130 mg/dL (65-110); Lipase 26 U/L (23-300); Magnesium 2.2 mg/dL (1.6-2.3); Potassium 3.7 mmol/L (3.4-5.0); Sodium 135 mmol/L (137-145)
[2023-11-19 14:21] LABS: NT Pro B Type Natriuretic Pept 53 pg/mL (19.9-100); Troponin I < 0.012 ng/mL (0.000-0.034)
[2023-11-19 14:22] LABS: INR 2.7; Prothrombin Time 29.1 Seconds (11.1-14.7)
[2023-11-19 14:23] LABS: Partial Thromboplastin Time 34.3 Seconds (22.3-36.8)
[2023-11-19 14:36] LABS: Influenza A QL RT-PCR Negative (Negative); Influenza B QL RT-PCR Negative (Negative); RSV RNA, RT-PCR Negative (Negative); SARS-CoV-2 RNA PCR Negative (Negative)
--- NOTE | 2023-11-19 16:36 | ECG_ITS ---
Test Date: 2023-11-19 16:38:27 Measurements Intervals [place] Rate: 74 P: 100 [place]: 207 QRS: 41 QRSD: 113 T: 48 QT: 423 QTc: 472 Interpretive Statements SINUS RHYTHM WITH FREQUENT VENTRICULAR PREMATURE COMPLEXES LOW QRS VOLTAGE IN PRECORDIAL LEADS [QRS DEFLECTION < 1.0 mV IN CHEST LEADS] MODERATE INTRAVENTRICULAR CONDUCTION DELAY [110+ ms QRS DURATION] ABNORMAL RHYTHM ECG Compared to ECG 11/19/2023 13:43:14 NO SIGNIFICANT CHANGES Electronically Signed On 11-20-2023 09:51:51 CDT by Liliana Renee M.D.
[2023-11-19 17:08] LABS: Troponin I < 0.012 ng/mL (0.000-0.034)
[2023-11-19 18:16] VITALS: TEMP 37.2
== END 2023-11-19 17:30 | disposition left against medical advice (07) ==
PROVIDERS: Emergency Provider Emergency Medicine; PCP Family Medicine
DX: B34.9 Viral infection, unspecified (principal); R07.89 Other chest pain; Z20.822 Contact with and (suspected) exposure to COVID-19; J44.9 Chronic obstructive pulmonary disease, unspecified; J96.11 Chronic respiratory failure with hypoxia; Z99.81 Dependence on supplemental oxygen; E78.5 Hyperlipidemia, unspecified; I10 Essential (primary) hypertension; I27.20 Pulmonary hypertension, unspecified; E66.01 Morbid (severe) obesity due to excess calories; Z68.45 Body mass index [BMI] 70 or greater, adult; Z86.711 Personal history of pulmonary embolism; Z86.718 Personal history of other venous thrombosis and embolism; Z87.891 Personal history of nicotine dependence; Z79.899 Other long term (current) drug therapy; I44.0 Atrioventricular block, first degree; I49.3 Ventricular premature depolarization; I45.9 Conduction disorder, unspecified
CPT/HCPCS: 36415; 71045; 80053; 83605; 83690; 83735; 83880; 84484; 85025; 85610; 85730; 87637; 93005; 96360; 96361; 99284; J7030

== ENCOUNTER 2024-02-15 13:01 | Emergency (ER) | payer OTHER, SELFPAY ==
--- NOTE | ~2024-02-15 | CT_ITS ---
EXAMINATION: CTA chest PE protocol DATE: 02/15/2024 17:01 INDICATION: Hemoptysis TECHNIQUE: Computed tomography angiography (CTA) of the chest was performed with 100 mL Omnipaque-350 intravenous contrast timed to evaluate the pulmonary arteries. Coronal maximum intensity projection 3D-reconstructions were created by the technologist. The dose-length product (DLP) was 1265.09 mGy-cm . Automated exposure control and iterative reconstruction technique were employed. COMPARISON: X-ray chest, same date; CTPA 08/06/2019; CT abdomen pelvis lumbar 08/10/2023. FINDINGS: Lung parenchyma and airways: Minimal dependent atelectasis. Mild emphysematous change. Scattered smal l pulmonary nodules, stable or smaller in size, likely granulomas. Pleura: Unremarkable. Thoracic inlet, axillae and chest wall: Symmetric gynecomastia. Thoracic aorta: No significant dilation. No dissection. Mediastinum: Normal. Heart and pericardium: Normal. Coronary artery calcifications: Mild. Upper abdomen: No significant finding. Bones: No acute osseous finding. Pulmonary arteries: Study quality: Adequate. No pulmonary emboli detected. IMPRESSION: No CT evidence of acute pulmonary embolus. No acute process detected in the chest. Reviewed, dictated and finalized at location K. HOLE SHOOTER
--- NOTE | ~2024-02-15 | XR_ITS ---
EXAMINATION: XR chest 1V portable Exam Date/Time: 02/15/2024 15:45 STRAP CUTTER HISTORY: hemoptysis Comparison: 11/19/2023. RESULT: Lines, tubes, and devices: None. Lungs and pleura: Subsegmental left basilar airspace disease. Minimal left costophrenic angle blunti ng. Cardiomediastinal silhouette: Stable. Other: No acute osseous or upper abdominal finding. IMPRESSION: Subsegmental left basilar atelectasis/consolidation. Possible trace left pleural effusion versus poison information specialist rolando pleural blunting. Reviewed, dictated and finalized at location K. P CUTTER IMPRESSION: Subsegmental left basilar atelectasis/consolidation. Possible trace left pleura l effusion versus chronic pleural blunting.
[2024-02-15 13:04] VITALS: BP 153/74; PULSE 84; RESP 24; TEMP 36.6; O2SAT 100
--- NOTE | 2024-02-15 14:46 | ECG_ITS ---
Test Date: 2024-02-15 15:44:49 Measurements Intervals [place] Rate: 70 P: 74 [place]: 210 QRS: 48 QRSD: 108 T: 50 QT: 417 QTc: 450 Interpretive Statements SINUS RHYTHM WITH FIRST DEGREE AV BLOCK WITH FREQUENT VENTRICULAR PREMATURE COMPLEXES BASELINE ARTIFACT- I, III, AVR, AVL, AVF, V1, V3 ABNORMAL ECG Compared to ECG 11/19/2023 16:38:27 Intraventricular conduction delay no longer present Electronically Signed On 02-15-2024 18:21:21 MANAGER PROCESS IMPROVEMENT by Ben Nam D.O.
[2024-02-15 15:09] LABS: Basophils Percent Auto 0.3 % (0.2-1.2); Eosinophils Absolute Auto 0.1 K/mm3 (0-0.3); Eosinophils Percent Auto 1.6 % (0-4.4); Hematocrit 46.7 % (42.0-52.0); Hemoglobin 16.4 g/dL (14.0-18.0); Immature Granulocyte Absolute 0.04 K/mm3 (0.00-0.031); Immature Granulocyte Percent A 0.5 % (0-0.5); Lymphocytes Absolute Auto 1.81 K/mm3 (0.9-3.2); Lymphocytes Percent Auto 21.1 % (18.3-44.2); Mean Corpuscular HGB Conc 35.1 g/dl (32-36); Mean Corpuscular Hemoglobin 32.5 pg (26-34); Mean Corpuscular Volume 92.5 fl (80-100); Mean Platelet Volume 9.5 fl (7.4-10.4); Monocytes Absolute Auto 0.7 K/mm3 (0.1-0.6); Monocytes Percent Auto 8.1 % (2.6-8.5); Neutrophils Absolute Auto 5.9 K/mm3 (1.3-6.7); Neutrophils Percent Auto 68.4 % (45.5-73.1); Platelet Count Result 177 k/mm3 (150-375); Red Blood Count 5.05 M/mm3 (4.6-6.20); Red Cell Distribution Width 13.2 % (11.5-14.5); White Blood Count 8.6 K/mm3 (4.5-10.0)
--- NOTE | 2024-02-15 15:14 | ED.GENADULT ---
HPI - General Adult General Chief complaint: Unspecified Stated complaint: blood in phlegm Time Seen by Provider: 02/15/24 14:59 History of Present Illness HPI narrative: 28-year-old male history DVT pulmonary embolisms on Coumadin presents to the emergency department for evaluation for hemoptysis. Patient states last night he was having some increased cough and this morning noticed he had been coughing up blood. The hemoptysis did resolve this morning but then restarted this afternoon. Patient denies any chest pain or shortness of breath. Patient denies any exertional shortness of breath. Patient states that this is actually a good day for him healthwise other than the hemoptysis. Related Data Home Medications Medication Instructions Recorded Confirmed chlorthalidone 25 mg tablet 25 mg PO HS 05/14/19 12/04/23 lisinopril 20 mg tablet 10 mg PO HS 05/14/19 12/04/23 meloxicam 7.5 mg tablet 15 mg PO HS 05/14/19 12/04/23 simvastatin 20 mg tablet 20 mg PO HS 05/14/19 12/04/23 warfarin 4 mg tablet 8 mg PO HS 11/28/20 12/04/23 Allergies Allergy/AdvReac Type Severity Reaction Status Date / Time No Known Allergies Allergy Verified 02/15/24 13:01 Review of Systems Review of Systems: All systems reviewed & are unremarkable except as noted in HPI and below PMFSH Past Medical History Medical History Chronic anticoagulation Long-term warfarin for history of recurrent venous thromboembolism. Previously evaluated by audio specialist at [facility] with an unrevealing workup. Chronic obstructive pulmonary disease, unspecified Chronic respiratory failure with hypoxia, on home oxygen therapy Patient on 3 to 5 L nasal cannula. Deep venous thrombosis Dyslipidemia Essential hypertension Morbid obesity Obstructive sleep apnea on CPAP Paroxysmal supraventricular tachycardia Pulmonary embolism Pulmonary hypertension Pulmonary nodules Tobacco abuse Surgical History Surgical History History of wisdom tooth extraction Family History Family History Father Diabetes mellitus Family history of diabetes mellitus in first degree relative Grandparent Family history of malignant neoplasm Other Cerebrovascular accident Family history of cardiovascular disease Family history of kidney disease Hypertension Social History Social History Social History: Surrogate decision maker: Abdelrahman and Chayo Mott, parents. Code status: Full code. Smoking packs per day: 0.75 Smoking cigarettes per day: 15.0 Years smoked: 10 Smoking pack-years: 7.50 Smoking status: Former smoker Tobacco type: cigarettes and cigars Alcohol intake: never Substance use: never Do You Feel Safe in your Home?: Yes Lack of Transportation: No Lack of Food: Never True Current Housing: I Have Housing Concerned About Future Housing: No Difficulty Paying Gas/Electric Bills: No Difficulty Paying for Meds: No Currently Unemployed: No Education: High School Diploma/GED Difficulty w/ Childcare or Family Care: No Living arrangements: with family Additional living arrangements comments: Resides in [place] with his parents. Additional occupation/education comments: Disabled. Gender identity (if verbalized by the patient): Male Sexual Orientation (if Verbalized by the Patient): Straight or Heterosexual Exam Narrative: APPEARANCE: Well appearing, no pain, no distress, well-nourished. HEAD: normocephalic, atraumatic. EYES: PERRLA/EOMI, conjunctivae clear. NOSE: Normal no drainage EARS:TMS clear with good light reflex. THROAT: Pharynx clear, no exudate. NECK: Supple. No adenopathy, no masses. RESPIRATORY: Airway patent, respirations nonlabored. Clear to auscultation bilaterally, no rales, rhonchi, wheezing. CARDIOVASCULAR: Regular rate and rhythm without murmurs rubs or gallops. ABDOMINAL: Soft, nontender, nondistended, normal bowel sounds MUSCULOSKELETAL: Moves all extremities. Strength/ROM intact, No edema, No calf tenderness. NEURO: Alert. Cranial nerves II through XII intact. Grossly intact SKIN: Warm, dry. Normal Color Course Vital Signs Vital signs: Vital Signs Temperature 97.9 F 02/15/24 13:04 Pulse Rate 84 02/15/24 13:04 Respiratory Rate 24 H 02/15/24 13:04 Blood Pressure 153/74 H 02/15/24 13:04 Pulse Oximetry 100 02/15/24 13:04 Temperature 97.9 F 02/15/24 13:04 Pulse Rate 70 02/15/24 18:02 Respiratory Rate 16 02/15/24 18:02 Blood Pressure 101/53 L 02/15/24 18:02 Pulse Oximetry 94 02/15/24 18:02 Medical Decision Making MDM Narrative Medical decision making narrative: 48-year-old male present to the emergency department for evaluation for hemoptysis. Patient is afebrile with no leukocytosis and hemoglobin of 16.4. INR is 2.5 no acute abnormalities a CMP patient's negative influenza RSV and for COVID, CTA shows no evidence of pulmonary embolism. Patient has had no further hemoptysis Vital Signs Vital Signs: Vital Signs Temperature 97.9 F 02/15/24 13:04 Pulse Rate 84 02/15/24 13:04 Respiratory Rate 24 H 02/15/24 13:04 Blood Pressure 153/74 H 02/15/24 13:04 Pulse Oximetry 100 02/15/24 13:04 Temperature 97.9 F 02/15/24 13:04 Pulse Rate 70 02/15/24 18:02 Respiratory Rate 16 02/15/24 18:02 Blood Pressure 101/53 L 02/15/24 18:02 Pulse Oximetry 94 02/15/24 18:02 Lab Data 02/15/24 15:05 02/15/24 15:05 Labs: Lab Results 02/15/24 02/15/24 Range/Units 15:05 16:29 WBC 8.6 (4.5-10.0) K/mm3 RBC 5.05 (4.6-6.20) M/mm3 Hgb 16.4 (14.0-18.0) g/dL Hct 46.7 (42.0-52.0) % MCV 92.5 (80-100) fl MCH 32.5 (26-34) pg MCHC 35.1 (32-36) g/dl RDW 13.2 (11.5-14.5) % Plt Count 177 (150-375) k/mm3 MPV 9.5 (7.4-10.4) fl Immature Gran % (Auto) 0.5 (0-0.5) % Neut % (Auto) 68.4 (45.5-73.1) % Lymph % (Auto) 21.1 (18.3-44.2) % [place] % (Auto) 8.1 (2.6-8.5) % Eos % (Auto) 1.6 (0-4.4) % Baso % (Auto) 0.3 (0.2-1.2) % Lymph # (Auto) 1.81 (0.9-3.2) K/mm3 [place] # (Auto) 0.7 H (0.1-0.6) K/mm3 Eos # (Auto) 0.1 (0-0.3) K/mm3 Baso # (Auto) 0.0 (0.0-0.1) K/mm3 Abs Immat Gran (auto) 0.04 H (0.00-0.031) K/mm3 Absolute Neuts (auto) 5.9 (1.3-6.7) K/mm3 Absolute Nucleated RBC 0.000 (0.0-0.012) K/mm3 Nucleated RBC % 0.0 (0.0-0.2) % PT 27.7 H (11.1-14.7) Seconds INR 2.5 APTT 34.4 (22.3-36.8) Seconds Sodium 136 L (137-145) mmol/L Potassium 4.0 (3.4-5.0) mmol/L Chloride 102 (98-107) mmol/L Carbon Dioxide 26 (22-30) mmol/L Anion Gap 8 (4-12) mmol/L BUN 21 H (9-20) mg/dL Creatinine 0.70 (0.7-1.3) mg/dL Estim Creat Clear Calc 225 ml/min Estimated GFR > 60 (59 - ) Glucose 118 H (65-110) mg/dL Calcium 9.1 (8.4-10.2) mg/dL Total Bilirubin 0.8 (0.2-1.3) mg/dL AST 32 (17-59) U/L ALT 29 (6-50) U/L Alkaline Phosphatase 114 (38-126) U/L Total Protein 9.0 H (6.3-8.2) g/dL Albumin 4.2 (3.5-5.1) g/dL Influenza A (RT-PCR) Negative (Negative) Influenza B (RT-PCR) Negative (Negative) RSV (RT-PCR) Negative (Negative) SARS-CoV-2 RNA (RT-PCR) Negative (Negative) Discharge Plan Discharge Clinical Impression: Cough with hemoptysis Patient Disposition: Home, Self-Care Condition: Stable Instructions: Antibiotic Form, Coughing Up Blood (Hemoptysis) (ED) Additional Instructions: Your INR was 2.5. Have close follow-up with your primary care physician. If have any worsening symptoms then please call or return to the emergency department. Prescriptions: No Action chlorthalidone 25 mg tablet 25 mg PO HS lisinopril 20 mg tablet 10 mg PO HS meloxicam 7.5 mg tablet 15 mg PO HS simvastatin 20 mg tablet 20 mg PO HS cyclobenzaprine 10 mg tablet 10 mg PO TID PRN (Reason: muscle spasm) Qty: 20 0RF warfarin 4 mg tablet 8 mg PO HS ipratropium-albuterol 0.5 mg-3 mg(2.5 mg base)/3 mL solution for nebulization See Rx Instructions .ROUTE .COMPLEX Qty: 360 2RF Dose Instruction: USE 3 ML VIA NEBULIZER FOUR TIMES DAILY NEEDED FOR SHORTNESS OF BREATH OR WHEEZING Rx Instructions: USE 3 ML VIA NEBULIZER FOUR TIMES DAILY NEEDED FOR SHORTNESS OF BREATH OR WHEEZING Dulera 200-5 mcg/actuation HFA aerosol inhaler 2 puff INHALATION BID Qty: 13 3RF Rx Instructions: Rinse and spit after each use. albuterol sulfate 90 mcg/actuation HFA aerosol inhaler See Rx Instructions .ROUTE .COMPLEX Qty: 8.5 2RF Dose Instruction: INHALE 2 PUFFS BY MOUTH EVERY 4 TO 6 HOURS NEEDED FOR SHORTNESS OF BREATH OR WHEEZING Rx Instructions: INHALE 2 PUFFS BY MOUTH EVERY 4 TO 6 HOURS NEEDED FOR SHORTNESS OF BREATH OR WHEEZING sotalol 80 mg tablet See Rx Instructions .ROUTE .COMPLEX Qty: 60 5RF Dose Instruction: TAKE 1 TABLET BY MOUTH EVERY 12 HOURS Rx Instructions: TAKE 1 TABLET BY MOUTH EVERY 12 HOURS Follow-up/Referrals: Anthony Weaver MD [Primary Care Provider] -
[2024-02-15 15:22] LABS: Alanine Aminotransferase 29 U/L (6-50); Albumin Level 4.2 g/dL (3.5-5.1); Alkaline Phosphatase 114 U/L (38-126); Anion Gap 8 mmol/L (4-12); Aspartate Amino Transferase 32 U/L (17-59); Bilirubin,Total 0.8 mg/dL (0.2-1.3); Blood Urea Nitrogen 21 mg/dL (9-20); Calcium 9.1 mg/dL (8.4-10.2); Carbon Dioxide 26 mmol/L (22-30); Chloride 102 mmol/L (98-107); Estimated CRCL calculation 225 ml/min; Estimated Glomerular Filt Rate > 60; Glucose 118 mg/dL (65-110); INR 2.5; Partial Thromboplastin Time 34.4 Seconds (22.3-36.8); Prothrombin Time 27.7 Seconds (11.1-14.7); Sodium 136 mmol/L (137-145)
[2024-02-15 15:39] VITALS: PULSE 74
[2024-02-15 15:40] VITALS: BP 115/76; PULSE 66; RESP 20; O2SAT 94
[2024-02-15 16:29] VITALS: BP 117/77; PULSE 72; RESP 21; O2SAT 95
[2024-02-15 16:35] VITALS: RESP 21
[2024-02-15 17:09] LABS: Influenza A QL RT-PCR Negative (Negative); Influenza B QL RT-PCR Negative (Negative); RSV RNA, RT-PCR Negative (Negative); SARS-CoV-2 RNA PCR Negative (Negative)
[2024-02-15 18:02] VITALS: BP 101/53; PULSE 70; RESP 16; O2SAT 94
== END 2024-02-15 18:10 | disposition home or self-care (01) ==
PROVIDERS: Physician Assistant; Emergency Provider Emergency Medicine; PCP Family Medicine
DX: R04.2 Hemoptysis (principal); R05.9 Cough, unspecified; Z79.01 Long term (current) use of anticoagulants; Z86.718 Personal history of other venous thrombosis and embolism; Z86.711 Personal history of pulmonary embolism; J96.11 Chronic respiratory failure with hypoxia; Z99.81 Dependence on supplemental oxygen; I10 Essential (primary) hypertension; E66.01 Morbid (severe) obesity due to excess calories; Z68.45 Body mass index [BMI] 70 or greater, adult; Z20.822 Contact with and (suspected) exposure to COVID-19
CPT/HCPCS: 36415; 71045; 71275; 80053; 85025; 85610; 85730; 87637; 93005; 99284; Q9967

== ENCOUNTER 2024-06-03 12:34 | Outpatient (CLI) | payer OTHER, SELFPAY ==
[2024-06-03] VITALS (7 sets, daily range): PULSE 75–112; O2SAT 84–94
== END 2024-06-03 12:35 | disposition home or self-care (01) ==
LOC: ANHPFT 12:35
PROVIDERS: PCP Family Medicine; Visit Provider Nurse Practitioner Family
DX: R09.02 Hypoxemia (principal)
CPT/HCPCS: 94618

== ENCOUNTER 2024-07-19 13:04 | Outpatient (CLI) | payer OTHER, SELFPAY ==
--- NOTE | ~2024-07-19 | CT_ITS ---
CT scan of the Neck Technique: 2.5 mm axial scans were obtained through the neck after intravenous administration of 75 c c Omnipaque 350. Coronal and sagittal reconstructions of the neck were obtained. Dose reduction techn ique was used on this scan by utilizing automated exposure control and iterative reconstruction techn ique. The dose-length product (DLP) was 672.98 mGy-cm. Clinical History: Other disease of the pharynx Findings: There is no evidence of any significant cervical lymphadenopathy. Several small, nonenlarged jugulo- digastric and posterior cervical lymph nodes are noted bilaterally. Parapharyngeal spaces appear norm al bilaterally. Questionable mild prominence of the palatine tonsils bilaterally without discrete mas s or fluid collection. The parotid and submandibular glands appear normal. The pharyngeal mucosal spaces appear normal. No soft tissue masses are seen in the neck. The thyroid gland appears normal. Images of the lung apices reveal no abnormalities. Impression: Possible mild prominence of the palatine tonsils without definite discrete mass or fluid collection. Consider tonsillitis. Consider further evaluation with direct inspection as indicated. Reviewed, dictated and finalized at location . Impression: Possible mild prominence of the palatine tonsils without definite discrete mass or fluid collection. Consider tonsillitis. Consider further evaluation with di rect inspection as indicated.
[2024-07-19 13:24] LABS: Estimated Glomerular Filt Rate > 60
--- OUTSIDE RECORDS SUMMARY | 2024-07-19 14:25 | XMS_ITS | Clinical Summary ---
Author Organization [facility] Address [address] [place] [address] Care Team Providers Care Film Rental Clerk Name Role Phone Anthony Weaver MD Primary Care Provider [phone] Source Comments [facility],non-owned Affiliates and Associated Physician Practices is amultiple site organization consisting of ambulatory clinics and hospital sitesin [place], [place], [place] and [place]. This disclosure is being madepursuant to the Care Everywhere program and may not contain all information available regarding this patient. Last updated 17.[facility] Allergies No known active allergies Medications * Be aware that medications may not be up to date on this document. Alwaysverify current medications with the patient. albuterol HFA (PROVENTIL;VENT MINNIE;PROAIR) 108 (90 Base) MCG/ACT inhaler INL 1 TO 2 PFS PO Q 4 TO 6 H PRN 2 11/24/2018 Active chlorthalidone (HYGROTON) 25 MG tablet TK 1 T PO QD 2 11/25/2018 Active lisinopril (PRINIVIL; ZESTRIL) 20 MG tablet TK 1 T PO QD 1 11/25/2018 Active simvastatin (ZOCOR) 20 MG tablet TK 1 T PO QD HS 1 11/24/2018 Active raNITIdine (ZANTAC) 150 MG tablet TK 1 T PO BID 2 11/25/2018 Activ e omeprazole (PRILOSEC) 20 MG capsule 12/02/2018 Active warfarin (COUMADIN) 2 MG tablet TK 1 T PO QD 2 11/24/2018 Active warfarin (COUMADIN) 4 MG tablet TK 2 TS PO QD 2 11/24/2018 Activ e diclofenac sodium (VOLTAREN) 1 % gel Apply 4 g to affected area 4 times daily 100 g 2 12/14/2018 Active Active Problems No known active problems Family History Medical History Relation Name Comments Diabetes Father Status: Alive Cancer Maternal Grandmother Status: None Known Mother Status: Alive Relation Name Status Comments Father Maternal Grandmother Mother Social History Tobacco Use Types Packs/Day Years Used Date Smoking Tobacco: Every Day Cigarettes Cigars Smokeless Tobacco: Never Alcohol Use Standard Drinks/Week Comments No 0 (1 standard drink = 0.6 oz pur e alcohol) Sex and Gender Information Value Date Recorded Sex Assigned at Not on file Legal Sex Male 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 Gender Identity Not on file Sexual Orientation Not on file Last Filed Vital Signs Vital Sign Reading Time Taken Comments Blood Pressure 129/80 12/14/2018 3:19 PM CDT Pulse 90 12/14/2018 3:19 PM CDT Temperature 36.9 C (98.4 F) 12/14/2018 3:19 PM CDT Respiratory Rate 18 12/14/2018 3:19 PM CDT Oxygen Saturation 96% 12/14/2018 3:19 PM CDT Inhaled Oxygen Concentration - - Weight 217.3 kg (479 lb) 02/17/2015 10:31 AM TETRYL SCREEN OPERATOR Height 188 cm (6' 2 ) 02/17/2015 10:31 AM TETRYL SCREEN OPERATOR Body Mass Index 61.5 02/17/2015 10:31 AM TETRYL SCREEN OPERATOR Plan of Treatment Health Maintenance Due Date Last Done Comments COLOGUARD (AGES 45-75) - COL ON CA SCREENING 1976 COLON MONITORING 1976 COLONOSCOPY - COLON CA SCREENING 1976 CT COLONOGRAPHY - COLON CA SCREENING 1976 Colorectal Cancer Screening 1976 FIT - COLON CA SCREENING 1976 FLEX SIG - COLON CA SCREENING 1976 HIV SCREENING 10/22/1991 HEPATITIS C SCREENING 10/17/1994 DTAP/TDAP/TD VACCINES (1 - Tdap) 10/22/1995 HEPATITIS B VACCINE (1 of 3 - 19+ 3-dose series) 10/22/1995 PNEUMOCOCCAL VACCINE (1 of 2 - PCV) 10/22/1995 COVID-19 VACCINE ( - 2023-2 5 season) 2023 DEPRESSION SCREENING 04/07/2024 INFLUENZA VACCINE (Season Ended) 2024 ZOSTER VACCINE (1 of 2) 2026 HIB VACCINE Aged Out No longer eligi ble based on patient's age to complete this topic HPV VACCINE Aged Out No longer eligi ble based on patient's age to complete this topic MENINGOCOCCAL (Group B) VACC INE SHARED DECISION-MAKING Aged Out No longer eligibl e based on patient's age to complete this topic MENINGOCOCCAL GROUPS A/C/Y/W VACCINE Aged Out No longer eligible b ased on patient's age to complete this topic Insurance [address] [place] [address] Care Teams Film Rental Clerk Relationship Specialty Start Date End Date Anthony Weaver MD [address] [place] [address] PCP - General 01/26/15
--- OUTSIDE RECORDS SUMMARY | 2024-07-19 14:25 | XMS_ITS | Encounter Summary ---
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
--- OUTSIDE RECORDS SUMMARY | 2024-07-19 14:25 | XMS_ITS | Clinical Summary ---
Author Organization [facility] Address [address] [place] [address] Care Team Providers Care Software Support Engineer Name Role Phone Atnhony Weaver MD Primary Care Provider [phone] Allergies No known active allergies Medications albuterol HFA (PROVENTIL HFA,VENTOLIN HFA,PROAIR HFA) 90 mcg/actuation inhaler Inhale 2 puffs every 4 (four) hours as needed for wheezing Active chlorthalidone 25 mg tablet Take 25 mg by mouth daily Active ipratropium-albut Rosario (DUO-NEB) 0.5-2.5 mg/3 mL nebulizer solutionIndicatio ns:Chronic Obstructive Pulmonary Disease with Bronchospasms Take 3 mL by nebulization 4 (four) times a day as needed for wheezing Active lisinopriL (PRINIVIL,ZESTRIL ) 10 mg tablet Take 10 mg by mouth daily Active meloxicam (MOBIC) 7.5 mg tablet Take 7.5 mg by mouth 2 (two) times a day as needed for pain Active mometasone-formot rosario (DULERA 200) 200-5 mcg/actuation inhaler Inhale 2 puffs 2 (two) times a day Rinse mouth with water after use. Do not swallow. Active pantoprazole DR (PROTONIX) 20 mg EC tablet Take 20 mg by mouth daily Active simvastatin (ZOCOR) 20 mg tablet Take 20 mg by mouth nightly Active warfarin (COUMADIN) 4 mg tablet Take 10 mg by mouth daily 4 mg x 2 tablets = 8 mg + 2 mg tablet = 10 mg total dose Active metoprolol XL (TOPROL-XL) 50 mg extended release tablet Take 1 tablet (50 mg total) by mouth daily 30 tablet 09/15/19 21 Active Active Problems Problem Noted Date Diagnosed Date SVT (supraventricular tachycardia) 09/13/2020 Assessment & Plan (10/30/2020 5:08 PM CDT): Recurrent SVT. Symptomatic. Improved on metoprolol. No recurrent hospitalizations required since starting metoprolol. Again discussed management options with the patient. Given his chronic hypoxemia and body mass, would prefer to avoid invasive options for now. He would be at increased vineet procedural risk for cardiopulmonary complications due to these risk factors. If he has recurrent symptomatic episodes requiring hospitalization, ablation could be considered. Recommend continuing metoprolol for now as long as it is tolerated. The patient understands and agrees. --Continue metoprolol XL 50 mg daily. Gastroesophageal reflux disease without esophagi tis 09/13/2020 COPD (chronic obstructive pulmonary disease) 12/2020 Tobacco abuse 09/13/2020 History of pulmonary embolism 09/13/2020 Hyperlipidemia 09/13/2020 Essential hypertension 09/13/2020 CORDELL on CPAP 09/13/2020 Obesity 09/13/2020 Rapid palpitations 09/13/2020 Subtherapeutic international normalized ratio (I NR) Medical History Medical History Date Comments COPD (chronic obstructive pu lmonary disease) (HCC) Hypertension HLD (hyperlipidemia) Pulmonary emboli (HCC) Multiple PE's-starting at the age of 20 yo. Multiple attempts to stop anticoagulation just resulted in recurrent PE's-now on coumadin. 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 Gender Identity Not on file Sexual Orientation Not on file Obstetrics History Last Filed Vital Signs Vital Sign Reading Time Taken Comments Blood Pressure 132/84 10/30/2020 4:18 PM CDT Pulse 86 10/30/2020 4:18 PM CDT Temperature 36.6 C (97.8 F) 09/14/2020 12:57 PM CDT Respiratory Rate 20 09/14/2020 12:57 PM CDT Oxygen Saturation 98% 09/14/2020 12:57 PM CDT Inhaled Oxygen Concentration - - Weight 238.1 kg (525 lb) 08/12/2023 1:27 PM CDT approximate Height 182.9 cm (6') 08/12/2023 1:27 PM CDT Body Mass Index 71.2 08/12/2023 1:27 PM CDT Plan of Treatment Health Maintenance Due Date Last Done Comments Colon Cancer Screening-Colonoscopy 1976 Depression Screening 1976 Hepatitis C Screening 1976 DTaP/Tdap/Td Vaccine (1 - Tdap) 10/22/1987 Hepatitis B Screening 1994 Regular Well Visit/Exam 18-64 1994 Pneumococcal vaccine <65 (1 of 2 - PCV) 10/22/1995 Influenza Vaccine (#1) 2023 Insurance [facility] Advance Directives For more information, please contact: [phone] * Full Code (Latest Code Status on File) Date Activated Date Inactivated Comments 09/13/2020 7:04 PM 09/14/2020 9:46 PM Care Teams Software Support Engineer Relationship Specialty Start Date End Date Anthony Weaver MD PCP - General 07/05/16
--- OUTSIDE RECORDS SUMMARY | 2024-07-19 14:25 | XMS_ITS | Referral Summary ---
Author Organization [facility] Address [address] [place] [address] Care Team Providers Care Jailkeeper Name Role Phone Anthony Weaver MD Primary Care Provider [phone] Allergies No known active allergies Medications albuterol [...] 09/13/2020 Subtherapeutic international normalized ratio (I NR) Social History Tobacco Use Types Packs/Day Years Used Date Smoking Tobacco: Every Day Cigarettes 0.5 15 Cigars Smokeless Tobacco: Never Tobacco Cessation:Ready to Q uit: Not Asked; Counseling Given: Not Answered Personal Safety Answer Date Recorded Getting School Help Needed Not on file 06/03 Sex and Gender Information Value Date Recorded Sex Assigned at Not on file Legal Sex Male 9:10 AM CARE TRANSITION MGR Gender Identity Not on file Sexual Orientation [...] 08/12/2023 1:27 PM CDT Plan of Treatment Not on file Insurance [facility] Advance Directives For more information, please contact: [phone] * Full Code (Latest Code Status on File) Date Activated Date Inactivated Comments 09/13/2020 7:04 PM 09/14/2020 9:46 PM Care Teams Jailkeeper Relationship Specialty Start Date End Date Anthony Weaver MD PCP - General 07/05/16
--- OUTSIDE RECORDS SUMMARY | 2024-07-19 14:25 | XMS_ITS | Clinical Summary ---
Author Organization [facility] Address [address] [place] [address] Care Team Providers Care Tube Bender Name Role Phone Unavailable Primary Care Provider Unavailabl e Social History Tobacco Use Types Packs/Day Years Used Date Smoking Tobacco: Never Assessed Sex and Gender Information Value Date Recorded Sex Assigned at Not on file Legal Sex Male 7:50 PM CDT Gender Identity Not on file Sexual Orientation Not on file Plan of Treatment Health Maintenance Due Date Last Done Comments Colorectal Cancer Screening Colonoscopy (10 Years) 1976 Annual Physical 10/22/1979 Hepatitis C 1994 DTaP, Tdap and Td Vaccines ( 1 - Tdap) 10/22/1995 Hepatitis B Vaccines (1 of 3 - 19+ 3-dose series) 10/22/1995 COVID-19 Vaccine (2023-2 5 season) 2023 Meningococcal B Vaccine Aged Out No l onger eligible based on patient's age to complete this topic Meningococcal Vaccine Aged Out No crow juan a eligible based on patient's age to complete this topic Pneumococcal Vaccine: Pediat rics (0 to 5 Years) and At-Risk Patients (6 to 49 Years) Aged Out No longer eligible b ased on patient's age to complete this topic RSV Immunizations Under 20 Months Aged Out No longer eligible based on patient's age to complete this topic
== END 2024-07-19 13:05 | disposition home or self-care (01) ==
LOC: ANHIMG 13:08
PROVIDERS: PCP Family Medicine; Visit Provider Otolaryngology
DX: J39.2 Other diseases of pharynx (principal)
CPT/HCPCS: 70491; Q9967

== ENCOUNTER 2024-07-27 10:55 | Outpatient (CLI) | payer OTHER, SELFPAY ==
--- OUTSIDE RECORDS SUMMARY | 2024-07-27 12:39 | XMS_ITS | Clinical Summary ---
Author Organization [facility] Address [address] [place] [address] Care Team Providers Care Gold Plater Name Role Phone Unavailable Primary Care Provider [...]
--- OUTSIDE RECORDS SUMMARY | 2024-07-27 12:39 | XMS_ITS | Referral Summary ---
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
--- OUTSIDE RECORDS SUMMARY | 2024-07-27 12:39 | XMS_ITS | Clinical Summary ---
Author Organization [facility] Address [address] [place] [place] [address] Care Team Providers Care Device Repair Technician Name Role Phone Anthony Weaver MD Primary Care Provider Source Comments [facility],non-owned Affiliates and Associated Physician Practices is amultiple site organization consisting of ambulatory clinics and hospital sitesin [place], [place], [place] and [place]. This disclosure is being madepursuant to the Care Everywhere program and may not contain all information available regarding this patient. 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
--- OUTSIDE RECORDS SUMMARY | 2024-07-27 12:39 | XMS_ITS | Clinical Summary ---
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
--- OUTSIDE RECORDS SUMMARY | 2024-07-27 12:39 | XMS_ITS | Encounter Summary ---
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
== END 2024-07-27 10:56 | disposition home or self-care (01) ==
LOC: ANHAUDIO 10:55
PROVIDERS: PCP Family Medicine; Visit Provider Otolaryngology
DX: H90.6 Mixed conductive and sensorineural hearing loss, bilateral (principal); H90.3 Sensorineural hearing loss, bilateral
CPT/HCPCS: 92557; 92567

== ENCOUNTER 2025-02-01 15:19 | Emergency (ER) | payer OTHER, SELFPAY ==
[2025-02-01] VITALS (16 sets, daily range): BP systolic 113–137; BP diastolic 67–87; PULSE 62–77; RESP 14–23; TEMP 36.3; O2SAT 92–100
--- NOTE | ~2025-02-01 | XR_ITS ---
EXAMINATION: XR chest 1V portable COMPARISON: No comparisons available. HISTORY: cp FINDINGS: The lungs are clear, no effusion. No pneumothorax. Heart is normal size. Mediastinal and hilar contours are within normal limits. Bony thorax no acute abnormality. Miscellaneous: None Impression: No acute cardiopulmonary abnormality. Reviewed, dictated and finalized at location P. Impression: No acute cardiopulmonary abnormality.
--- NOTE | 2025-02-01 15:29 | ECG_ITS ---
Test Date: 2025-02-01 15:29:27 Measurements Intervals [place] Rate: 74 P: 0 VT: 0 QRS: 44 QRSD: 111 T: 48 QT: 414 QTc: 461 Interpretive Statements SINUS RHTYHM WITH FIRST DEGREE AV BLOCK INCOMPLETE RIGHT BUNDLE BRANCH BLOCK BASELINE ARTIFACT- I, II, AVR, V1 BORDERLINE ECG No previous ECG available for comparison Electronically Signed On 02-01-2025 16:02:07 CDT by Ben Nam D.O.
--- NOTE | 2025-02-01 15:50 | ED.CHESTPAIN ---
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 Patient also has a history of morbid obesity and COPD on baseline oxygen 4-5 L at night. Patient presents to the emergency department today with chest pain associated with some dizziness and nausea. Intermittent in nature for last few days. States it does not classically feel like his PE history or his arrhythmia history. Endorses pain in the left side of his chest. Was otherwise in his normal state of health. Sees Dr. Wilson from Cardiology. No symptoms at this current time. Denies any fever, chills. Has had a sick contact at home and thinks he may have caught something like an upper respiratory infection as well. Related Data Home Medications ?Medication ?Instructions ?Recorded ?Confirmed ?Last Taken ?Type chlorthalidone 25 mg tablet 25 mg PO HS 05/14/19 06/03/24 11/27/20 21:00 History lisinopril 20 mg tablet 10 mg PO HS 05/14/19 06/03/24 11/27/20 21:00 History meloxicam 7.5 mg tablet 15 mg PO HS 05/14/19 06/03/24 11/27/20 21:00 History simvastatin 20 mg tablet 20 mg PO HS 05/14/19 06/03/24 11/27/20 21:00 History warfarin 4 mg tablet 8 mg PO HS 11/28/20 06/03/24 11/27/20 21:00 History Allergies Allergy/AdvReac Type Severity Reaction Status Date / Time No Known Allergies Allergy Verified 02/01/25 15:29 Review of Systems Review of Systems: As reviewed above in HPI [facility] Past Medical History Medical History Chronic respiratory failure with hypoxia, on home oxygen therapy Patient on 3 to 5 L nasal cannula. Paroxysmal supraventricular tachycardia Morbid obesity Chronic anticoagulation Long-term warfarin for history of recurrent venous thromboembolism. Previously evaluated by inorganic chemistry teacher at [facility] with an unrevealing workup. Deep venous thrombosis Pulmonary embolism Obstructive sleep apnea on CPAP Tobacco abuse Chronic obstructive pulmonary disease, unspecified Dyslipidemia Essential hypertension Pulmonary hypertension Pulmonary nodules Surgical History Surgical History History of wisdom tooth extraction Family History Family History Father Diabetes mellitus Family history of diabetes mellitus in first degree relative Grandparent Family history of malignant neoplasm Other Cerebrovascular accident Family history of cardiovascular disease Family history of kidney disease Hypertension Social History Social History Social History: Surrogate decision maker: Abdelrahman and Chayo Mott, parents. Code status: Full code. Smoking packs per day: 0.75 Smoking cigarettes per day: 15.0 Years smoked: 10 Smoking pack-years: 7.50 Smoking status: Former smoker Tobacco type: cigarettes and cigars Alcohol intake: never Substance use: never Do You Feel Safe in your Home?: Yes Lack of Transportation: No Lack of Food: Never True Current Housing: I Have Housing Concerned About Future Housing: No Difficulty Paying Gas/Electric Bills: No Difficulty Paying for Meds: No Currently Unemployed: No Education: High School Diploma/GED Difficulty w/ Childcare or Family Care: No Living arrangements: with family Additional living arrangements comments: Resides in [place] with his parents. Additional occupation/education comments: Disabled. Gender identity (if verbalized by the patient): Male Sexual Orientation (if Verbalized by the Patient): Straight or Heterosexual Exam Narrative: GENERAL: Morbidly obese, answering questions appropriately, not any distress or dyspnea. HEAD: Normocephalic and atraumatic EYES: PERRLA, extraocular movements are intact ENT: Nares clear, no rhinorrhea or epistaxis. Mucous membranes moist. NECK: Supple. CHEST: Clear to auscultation, no respiratory distress or tachypnea. HEART: [Regular rate and rhythm]. No murmur heard. [Normal peripheral pulses.] ABDOMEN: [Soft, nondistended], [nontender], [No rigidity or guarding] EXTREMITIES: Normal range of motion. [No edema.] SKIN: Warm, dry, no rash. NEURO: [No focal deficits]. Alert and oriented [x3.] PSYCH: [Normal mood and affect.] Course Vital Signs Vital signs: Vital Signs Temperature 36.3 C L 02/01/25 15:25 Pulse Rate 77 02/01/25 15:25 Respiratory Rate 14 02/01/25 15:25 Blood Pressure 135/67 02/01/25 15:25 Pulse Oximetry 97 02/01/25 15:25 Oxygen Delivery Nasal Cannula 02/01/25 15:25 Oxygen Flow Rate 2 02/01/25 15:25 Temperature 36.3 C L 02/01/25 15:25 Pulse Rate 66 02/01/25 19:47 Respiratory Rate 18 02/01/25 19:47 Blood Pressure 137/82 02/01/25 19:47 Pulse Oximetry 97 02/01/25 19:47 Oxygen Delivery Nasal Cannula 02/01/25 15:33 Oxygen Flow Rate 2 02/01/25 15:33 MDM - Chest Pain MDM Narrative Medical decision making narrative: 49-year-old male with 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 Patient also has a history of morbid obesity and COPD on baseline oxygen 4-5 L at night. Patient presents to the emergency department today with chest pain associated with some dizziness and nausea. Intermittent in nature for last few days. States it does not classically feel like his PE history or his arrhythmia history. Endorses pain in the left side of his chest. Was otherwise in his normal state of health. Sees Dr. Wilson from Cardiology. No symptoms at this current time. Denies any fever, chills. Has had a sick contact at home and thinks he may have caught something like an upper respiratory infection as well. Patient overall is not ill-appearing. He is morbidly obese but vital signs are reassuring and within normal limits. No tachycardia, fever, hypoxemia. Patient is on his baseline oxygen and 100% on saturation. Normal blood pressure. Given his recurrent thromboembolic disease even on anticoagulation suspicion raise for thromboembolic event such as pulmonary embolism versus something like pneumonia, upper respiratory infection, ACS, musculoskeletal chest pain. CT angiography ordered. Serial troponins EKG and basic laboratory studies ordered. Patient placed on quality assurance monitor body pulse oximetry. Laboratory studies showed no leukocytosis or anemia. Normal platelet count. Electrolytes are unremarkable. Normal creatinine. Normal glucose. Normal LFTs. Negative troponin, negative delta troponin, negative lipase. Chest x-ray shows no acute cardiopulmonary disease. EKG shows no acute ST segment concerns. Patient was over the weight limit for the CT scanner and spoke to the chief radiology who would not be able to do a V/Q scan. At this time given his low risk factors and already chronically anticoagulated dimer was used to assess further risk stratification. Patient is not tachycardic or hypoxic more than his normal baseline oxygen requirement. His D-dimer was negative and undetectable which is reassuring that he can be safely discharged with regular primary follow-up in Cardiology follow-up. Medical Records Data Attestation: I reviewed the patient's medical records. Lab Data Attestation: I reviewed the patient's lab results. 02/01/25 15:34 02/01/25 15:34 Labs: Lab Results 02/01/25 02/01/25 02/01/25 Range/Units 15:34 16:17 18:34 WBC 7.3 (4.5-10.0) K/mm3 RBC 4.98 (4.6-6.20) M/mm3 Hgb 15.6 (14.0-18.0) g/dL Hct 45.9 (42.0-52.0) % MCV 92.2 (80-100) fl MCH 31.3 (26-34) pg MCHC 34.0 (32-36) g/dl RDW 13.4 (11.5-14.5) % Plt Count 170 (150-375) k/mm3 MPV 9.9 (7.4-10.4) fl Immature Gran % (Auto) 0.4 (0-0.5) % Neut % (Auto) 58.0 (45.5-73.1) % Lymph % (Auto) 28.3 (18.3-44.2) % Lassen % (Auto) 11.4 H (2.6-8.5) % Eos % (Auto) 1.6 (0-4.4) % Baso % (Auto) 0.3 (0.2-1.2) % Lymph # (Auto) 2.07 (0.9-3.2) K/mm3 Lassen # (Auto) 0.8 H (0.1-0.6) K/mm3 Eos # (Auto) 0.1 (0-0.3) K/mm3 Baso # (Auto) 0.0 (0.0-0.1) K/mm3 Abs Immat Gran (auto) 0.03 (0.00-0.031) K/mm3 Absolute Neuts (auto) 4.2 (1.3-6.7) K/mm3 Absolute Nucleated RBC 0.000 (0.0-0.012) K/mm3 Nucleated RBC % 0.0 (0.0-0.2) % PT 24.2 H (11.1-14.7) Seconds INR 2.3 APTT 33.6 (22.3-36.8) Seconds D-Dimer < 0.27 (<0.48) ug/mL Sodium 135 L (137-145) mmol/L Potassium 3.8 (3.4-5.0) mmol/L Chloride 97 L (98-107) mmol/L Carbon Dioxide 31 H (22-30) mmol/L Anion Gap 7 (4-12) mmol/L BUN 19 (9-20) mg/dL Creatinine 0.78 (0.7-1.3) mg/dL Estim Creat Clear Calc 199 ml/min Estimated GFR > 60 (59 - ) Glucose 131 H (65-110) mg/dL Calcium 8.9 (8.4-10.2) mg/dL Total Bilirubin 1.0 (0.2-1.3) mg/dL AST 42 (17-59) U/L ALT 39 (6-50) U/L Alkaline Phosphatase 95 (38-126) U/L Troponin I < 0.012 < 0.012 (0.000-0.034) ng/mL Total Protein 8.9 H (6.3-8.2) g/dL Albumin 4.1 (3.5-5.1) g/dL Lipase 27 (23-300) U/L Influenza A (RT-PCR) Negative (Negative) Influenza B (RT-PCR) Negative (Negative) RSV (RT-PCR) Negative (Negative) SARS-CoV-2 RNA (RT-PCR) Negative (Negative) Imaging Data Attestation: I personally reviewed and interpreted this imaging study as follows: My impression: Impressions Chest X-Ray 02/01/25 15:44 Impression: No acute cardiopulmonary abnormality. Discharge Plan Discharge Clinical Impression: Chest pain Patient Disposition: Home Condition: Stable Instructions: Antibiotic Form, Chest Pain (ED) Additional Instructions: Cardiac workup was unremarkable. No cardiac enzyme elevations. No signs of pneumonia. No COVID flu or RSV. Blood clot number/D-dimer was negative and undetectable effectively ruling out thromboembolic disease or recurrence and your INR is normal level for appropriate anticoagulation. Follow-up with your account developer and return with any new worsening or emergent concerns. Patient Language: Lao Prescriptions: No Action chlorthalidone 25 mg tablet 25 mg PO HS lisinopril 20 mg tablet 10 mg PO HS meloxicam 7.5 mg tablet 15 mg PO HS simvastatin 20 mg tablet 20 mg PO HS warfarin 4 mg tablet 8 mg PO HS Dulera 200-5 mcg/actuation HFA aerosol inhaler 2 puff INHALATION BID Qty: 13 3RF Rx Instructions: Rinse and spit after each use. albuterol sulfate 90 mcg/actuation HFA aerosol inhaler See Rx Instructions .ROUTE .COMPLEX Qty: 8.5 2RF Dose Instruction: INHALE 2 PUFFS BY MOUTH EVERY 4 TO 6 HOURS NEEDED FOR SHORTNESS OF BREATH OR WHEEZING Rx Instructions: INHALE 2 PUFFS BY MOUTH EVERY 4 TO 6 HOURS NEEDED FOR SHORTNESS OF BREATH OR WHEEZING sotalol 80 mg tablet See Rx Instructions .ROUTE .COMPLEX Qty: 60 5RF Dose Instruction: TAKE 1 TABLET BY MOUTH EVERY 12 HOURS Rx Instructions: TAKE 1 TABLET BY MOUTH EVERY 12 HOURS Follow-up/Referrals: Anthony Weaver MD [Primary Care Provider, Family Practice] Time of Disposition: 19:18
[2025-02-01 15:57] LABS: Alanine Aminotransferase 39 U/L (6-50); Albumin Level 4.1 g/dL (3.5-5.1); Alkaline Phosphatase 95 U/L (38-126); Anion Gap 7 mmol/L (4-12); Aspartate Amino Transferase 42 U/L (17-59); Bilirubin,Total 1.0 mg/dL (0.2-1.3); Blood Urea Nitrogen 19 mg/dL (9-20); Calcium 8.9 mg/dL (8.4-10.2); Carbon Dioxide 31 mmol/L (22-30); Chloride 97 mmol/L (98-107); Estimated CRCL calculation 199 ml/min; Estimated Glomerular Filt Rate > 60; Glucose 131 mg/dL (65-110); Lipase 27 U/L (23-300); Potassium 3.8 mmol/L (3.4-5.0); Sodium 135 mmol/L (137-145); Total Protein 8.9 g/dL (6.3-8.2)
[2025-02-01 15:58] LABS: Hematocrit 45.9 % (42.0-52.0); Hemoglobin 15.6 g/dL (14.0-18.0); Immature Granulocyte Percent A 0.4 % (0-0.5); Lymphocytes Absolute Auto 2.07 K/mm3 (0.9-3.2); Mean Corpuscular HGB Conc 34.0 g/dl (32-36); Mean Corpuscular Hemoglobin 31.3 pg (26-34); Mean Corpuscular Volume 92.2 fl (80-100); Nucleated Red Blood Cells Absolute Auto 0.000 K/mm3 (0.0-0.012); Nucleated Red Blood Cells Perc 0.0 % (0.0-0.2); Platelet Count Result 170 k/mm3 (150-375); Red Blood Count 4.98 M/mm3 (4.6-6.20); White Blood Count 7.3 K/mm3 (4.5-10.0)
[2025-02-01 16:08] LABS: Troponin I < 0.012 ng/mL (0.000-0.034)
[2025-02-01 16:09] LABS: INR 2.3; Prothrombin Time 24.2 Seconds (11.1-14.7)
[2025-02-01 16:10] LABS: Partial Thromboplastin Time 33.6 Seconds (22.3-36.8)
[2025-02-01 16:57] LABS: Influenza A QL RT-PCR Negative (Negative); Influenza B QL RT-PCR Negative (Negative); RSV RNA, RT-PCR Negative (Negative); SARS-CoV-2 RNA PCR Negative (Negative)
[2025-02-01] MEDS: ASPIRIN 81 MG CHEWABLE TABLET 324 MG PO (17:23)
--- OUTSIDE RECORDS SUMMARY | 2025-02-01 17:27 | XMS_ITS | Clinical Summary ---
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
--- OUTSIDE RECORDS SUMMARY | 2025-02-01 17:27 | XMS_ITS | Encounter Summary ---
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
--- OUTSIDE RECORDS SUMMARY | 2025-02-01 17:27 | XMS_ITS | Clinical Summary ---
Author Organization [facility] Address [address] [place] [address] Care Team Providers Care Sterile Process Tech Name Role Phone Unavailable Primary Care Provider [...] - 19+ 3-dose series) 10/22/1995 COVID-19 Vaccine (2024-2 6 season) 2024 Influenza Adult (#1) 2025 Hepatitis A Vaccines Aged Out No long er eligible based on patient's age to complete this topic Meningococcal B Vaccine Aged Out No l [...]
--- OUTSIDE RECORDS SUMMARY | 2025-02-01 17:27 | XMS_ITS | Clinical Summary ---
Author Organization [facility] Address [address] [place] [address] Care Team Providers Care Road Builder Name Role Phone Anthony Weaver MD Primary Care Provider [phone] Source Comments [facility],non-owned Affiliates and Associated Physician Practices is amultiple site organization consisting of ambulatory clinics and hospital sitesin [place], [place], [place] and [place]. This disclosure is being madepursuant to the Care Everywhere program and may not contain all information available regarding this patient. 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 Gender Identity Not on file Sexual Orientation [...] 217.3 kg (479 lb) 02/17/2015 10:31 AM UNIT TRUST MANAGER Height 188 cm (6' 2) 02/17/2015 10:31 AM UNIT TRUST MANAGER Body Mass Index 61.5 02/17/2015 10:31 AM UNIT TRUST MANAGER Plan of Treatment Health Maintenance Due Date [...] VACCINE (1 of 2 - PCV) 10/22/1995 DEPRESSION SCREENING 04/07/2024 COVID-19 VACCINE ( - 2023-2 5 season) 2024 INFLUENZA VACCINE (#1) 2024 ZOSTER VACCINE (1 of 2) 2026 [...] patient's age to complete this topic Insurance [facility] [place] [address] [address] Relationship Specialty Start Date End Date Anthony Weaver MD [address] [place] [address] PCP - General 01/26/15
--- OUTSIDE RECORDS SUMMARY | 2025-02-01 17:57 | XMS_ITS | Clinical Summary ---
Author Organization [facility] Address [address] [facility] [place] [address] Care Team Providers Care Cardiac Catheterization Technologist Name Role Phone Anthony Weaver MD Primary Care Provider Source Comments [facility],non-owned Affiliates and Associated Physician Practices is amultiple site organization consisting of ambulatory clinics and hospital sitesin [place], [place], [place] and [place]. This disclosure is being madepursuant to the Care Everywhere program and may not contain all information available regarding this patient. 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
--- OUTSIDE RECORDS SUMMARY | 2025-02-01 17:57 | XMS_ITS | Clinical Summary ---
Author Organization [facility] Address [address] [place] [address] Care Team Providers Care Trampoline Team Coach Name Role Phone Unavailable Primary Care Provider [...]
--- OUTSIDE RECORDS SUMMARY | 2025-02-01 17:57 | XMS_ITS | Encounter Summary ---
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
--- OUTSIDE RECORDS SUMMARY | 2025-02-01 17:57 | XMS_ITS | Clinical Summary ---
Author Organization 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
--- NOTE | 2025-02-01 18:53 | ECG_ITS ---
Test Date: 2025-02-01 18:58:28 Measurements Intervals [place] Rate: 63 P: 106 KS: 197 QRS: 17 QRSD: 118 T: 52 QT: 432 QTc: 445 Interpretive Statements SINUS RHYTHM WITH OCCASIONAL VENTRICULAR PREMATURE COMPLEXES INCOMPLETE RIGHT BUNDLE BRANCH BLOCK LOW QRS VOLTAGE IN PRECORDIAL LEADS BASELINE ARTIFACT- I, III, AVR, AVL BORDERLINE ECG Compared to ECG 02/01/2025 15:29:27 Ventricular premature complex(es) now present Electronically Signed On 02-02-2025 05:55:29 CDT by Ben Nam D.O.
[2025-02-01 19:09] LABS: Troponin I < 0.012 ng/mL (0.000-0.034)
== END 2025-02-01 19:48 | disposition home or self-care (01) ==
PROVIDERS: Emergency Provider Student in an Organized Health Care Education/Training Program; PCP Family Medicine
DX: R07.9 Chest pain, unspecified (principal); Z20.822 Contact with and (suspected) exposure to COVID-19; J96.11 Chronic respiratory failure with hypoxia; J44.9 Chronic obstructive pulmonary disease, unspecified; Z99.81 Dependence on supplemental oxygen; I10 Essential (primary) hypertension; I47.10 Supraventricular tachycardia, unspecified; I27.20 Pulmonary hypertension, unspecified; E66.01 Morbid (severe) obesity due to excess calories; Z68.44 Body mass index [BMI] 60.0-69.9, adult; E78.5 Hyperlipidemia, unspecified; G47.33 Obstructive sleep apnea (adult) (pediatric); Z87.891 Personal history of nicotine dependence; Z86.718 Personal history of other venous thrombosis and embolism; Z86.711 Personal history of pulmonary embolism; Z79.899 Other long term (current) drug therapy; Z79.01 Long term (current) use of anticoagulants; I44.0 Atrioventricular block, first degree; I45.10 Unspecified right bundle-branch block
CPT/HCPCS: 36415; 71045; 80053; 83690; 84484; 85025; 85380; 85610; 85730; 87637; 93005; 99284; A9270

== ENCOUNTER 2025-02-23 08:22 | Outpatient (CLI) | payer OTHER, SELFPAY ==
--- NOTE | 2025-02-23 | ECHO_ITS ---
Patient Info Name: Abdelrahman Mott Age: 49 years : 1975 Gender: Male Ht: 72 in Wt: 500 lbs BSA: 3.54 m2 HR: 81 bpm BP: 125 / 75 mmHg Heart Rhythm: Sinus Rhythm Technical Quality: Fair Exam Date: 02/23/2025 8:49 AM Patient Status: O Admit Date: 02/23/2025 Exam Type: CA echo doppler color flow Complete two-dimensional, color flow and Doppler transthoracic echocardiogram is performed. Tube Coater: Melina Sullivan Attending Provider: Renae Rushing Summary 1. Complete two-dimensional, color flow and Doppler transthoracic echocardiogram is performed. 2. Technically difficult exam because of patient obesity. 3. Hyperdynamic left ventricular systolic function. 4. No significant valvular abnormality. 5. Sinus rhythm. Left Ventricle Left ventricular chamber dimension is normal. Left ventricular systolic function is hyperdynamic, estimated at >70. The left ventricular diastolic function is normal. Right Ventricle Right ventricular chamber dimension is normal. Left Atria Left atrial chamber dimension is normal. Right Atria Right atrial chamber dimension is normal. Aortic Valve The aortic valve is normal. Pulmonic Valve The pulmonic valve is not well visualized. Mitral Valve The mitral valve has normal leaflets. Tricuspid Valve The tricuspid valve leaflets are normal. Pericardium/Pleural The pericardium appears normal. Aorta The aortic root size at the sinus of Valsalva is normal. Left Ventricular Outflow Tract Name Value Normal LVOT 2D LVOT Diameter 2.0 cm LVOT Doppler LVOT Peak Velocity 97 cm/s LVOT Peak Gradient 4 mmHg LVOT Mean Gradient 2 mmHg LVOT VTI 20 cm LVOT VTI/AV VTI Ratio 0.8 LVOT Stroke Volume 59 ml LVOT CO 4.4 l/min LVOT CI 1.3 l/min/m2 Pulmonic Valve Name Value Normal RVOT Doppler RVOT Peak Velocity 98 cm/s RVOT Peak Gradient 4 mmHg PV Doppler PV Peak Velocity 120 cm/s PV Peak Gradient 6 mmHg Mitral Valve Name Value Normal MV Diastolic Function MV E Peak Velocity 66 cm/s MV A Peak Velocity 73 cm/s MV E/A 0.9 MV Decel Time (PW) 190 ms MV Annular TDI MV E/e' (Septal) 14.3 MV E/e' (Lateral) 4.6 MV E/e' (Average) 9.5 Tricuspid Valve Name Value Normal TV Regurgitation Doppler TR Peak Velocity 263 cm/s TR Peak Gradient 28 mmHg TV Annular TDI TV Lateral Kat s' Velocity 17.8 cm/s >=9.5 Aorta Name Value Normal Ascending Aorta Ao Root Diameter (MM) 3.4 cm Ao Root Diam Index (MM) 1.0 cm/m2 Aortic Valve Name Value Normal AV Doppler AV Peak Velocity 148 cm/s AV Peak Gradient 9 mmHg AV Mean Gradient 4 mmHg AV VTI 25 cm AV Area (Cont Eq VTI) 2.4 cm2 >=3.0 AV Area (Cont Eq Collin) 2.0 cm2 AV DI (Collin) 0.65 AV Regurgitation 2D LVOT Area 3.0 cm2 Ventricles Name Value Normal LV Dimensions 2D/MM IVS Diastolic Thickness (2D) 1.0 cm 0.6-1.0 LVID Diastole (2D) 5.7 cm 4.2-5.8 LVIW Diastolic Thickness (2D) 1.0 cm 0.6-1.0 LVID Systole (2D) 3.5 cm 2.5-4.0 LVOT Diameter 2.0 cm LV Mass (2D Cubed) 234.77 g 88.00-224.00 LV Mass Index (2D Cubed) 66 g/m2 49-115 Relative Wall Thickness (2D) 0.37 <=0.42 LV Fractional Shortening/Ejection Fraction 2D/MM LV Fractional Shortening (2D) 39 % 25-43 LV EF (2D Teichholz) 69 % LV Diastolic Volume (4C MOD) 132 ml LV EF (4C MOD) 75 % LV Diastolic Volume (2C MOD) 144 ml LV EF (2C MOD) 68 % LV Diastolic Volume (BP MOD) 143 ml 62-150 LV Diastolic Volume Index (BP MOD) 40 ml/m2 34-74 LV Systolic Volume (BP MOD) 41 ml 21-61 LV Systolic Volume Index (BP MOD) 11 ml/m2 11-31 LV EF (BP MOD) 72 % 52-72 LV Diastolic Length (4C) 8.2 cm LV Systolic Length (4C) 6.9 cm LV Stroke Volume (4C MOD) 98 ml Atria Name Value Normal LA Dimensions LA Dimension (MM) 4.1 cm 3.0-4.0 LA Volume (4C A-L) 43 ml LA Volume (BP A-L) 50 ml RA Dimensions RA Area (4C) 22.2 cm2 <=18.0 Report Signatures
== END 2025-02-23 08:23 | disposition home or self-care (01) ==
LOC: ANHCARD 08:23
PROVIDERS: PCP Family Medicine; Visit Provider Nurse Practitioner Family
DX: I45.10 Unspecified right bundle-branch block (principal); I50.9 Heart failure, unspecified
CPT/HCPCS: 93306

== ENCOUNTER 2025-03-16 14:48 | Outpatient (CLI) | payer OTHER, SELFPAY ==
[2025-03-16 15:44] LABS: Hematocrit 45.1 % (42.0-52.0); Hemoglobin 15.5 g/dL (14.0-18.0); Immature Granulocyte Percent A 0.6 % (0-0.5); Lymphocytes Absolute Auto 1.77 K/mm3 (0.9-3.2); Mean Corpuscular HGB Conc 34.4 g/dl (32-36); Mean Corpuscular Hemoglobin 31.5 pg (26-34); Mean Corpuscular Volume 91.7 fl (80-100); Nucleated Red Blood Cells Absolute Auto 0.000 K/mm3 (0.0-0.012); Nucleated Red Blood Cells Perc 0.0 % (0.0-0.2); Platelet Count Result 176 k/mm3 (150-375); Red Blood Count 4.92 M/mm3 (4.6-6.20); White Blood Count 7.8 K/mm3 (4.5-10.0)
[2025-03-16 16:08] LABS: Alanine Aminotransferase 42 U/L (6-50); Albumin Level 4.2 g/dL (3.5-5.1); Alkaline Phosphatase 109 U/L (38-126); Anion Gap 4 mmol/L (4-12); Aspartate Amino Transferase 41 U/L (17-59); Bilirubin,Total 0.8 mg/dL (0.2-1.3); Blood Urea Nitrogen 28 mg/dL (9-20); Calcium 9.2 mg/dL (8.4-10.2); Carbon Dioxide 28 mmol/L (22-30); Chloride 101 mmol/L (98-107); Cholesterol 124 mg/dL (0-200); Estimated Glomerular Filt Rate > 60; Glucose 114 mg/dL (65-110); HDL Direct 29 mg/dL; Potassium 4.3 mmol/L (3.4-5.0); Sodium 133 mmol/L (137-145); Total Protein 8.9 g/dL (6.3-8.2); Triglycerides 117 mg/dL (<150)
[2025-03-16 16:39] LABS: Prostate Specific Antigen 0.5 ng/mL (< OR = 4.0); Thyroid Stimulating Hormone 0.585 uIU/mL (0.465-4.680)
[2025-03-16 17:09] LABS: Hemoglobin A1C 6.0 % (<5.7)
--- OUTSIDE RECORDS SUMMARY | 2025-03-16 19:42 | XMS_ITS | Clinical Summary ---
Author Organization [facility] Address [address] [place] [id number] Care Team Providers Care Lawyers Name Role Phone Unavailable Primary Care Provider [...]
--- OUTSIDE RECORDS SUMMARY | 2025-03-16 19:42 | XMS_ITS | Clinical Summary ---
Author Organization [facility] Address [address] [place] [address] Care Team Providers Care Interventional Technologist Name Role Phone Anthony Weaver MD Primary Care Provider Source Comments [facility],non-owned Affiliates and Associated Physician Practices is amultiple site organization consisting of ambulatory clinics and hospital sitesin [place], [place], [place] and [place]. This disclosure is being madepursuant to the Care Everywhere program and may not contain all information available regarding this patient. 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 Gender Identity Not on file Sexual Orientation [...] 217.3 kg (479 lb) 02/17/2015 10:31 AM COTTON BROKER Height 188 cm (6' 2) 02/17/2015 10:31 AM COTTON BROKER Body Mass Index 61.5 02/17/2015 10:31 AM COTTON BROKER Plan of Treatment Health Maintenance Due Date [...] of 3 - 19+ 3-dose series) 10/22/1995 DEPRESSION SCREENING 04/07/2024 COVID-19 VACCINE (1 - 2024-2 6 season) 2024 INFLUENZA VACCINE (#1) 2024 ZOSTER [...] on patient's age to complete this topic PNEUMOCOCCAL VACCINE Aged Out No long er eligible based on patient's age to complete this topic Insurance [facility] Care Teams Interventional Technologist Relationship Specialty Start Date End Date Anthony Weaver MD [address] [place] [address] [facility] - General 01/26/15
--- OUTSIDE RECORDS SUMMARY | 2025-03-16 19:42 | XMS_ITS | Clinical Summary ---
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 Relation to Subscriber:Self Name:Abdelrahman Mott Jr. Payer ID:[id number] (NAIC) Group ID:Not on file Type:MEDICAID [id number] OTHER Address: ATTN: CLAIMS DEPT [address] [place] [address] [address] [id number] Advance Directives For more information, please contact: [phone] * Full Code (Latest Code Status on File) Date Activated Date Inactivated Comments 09/13/2020 7:04 PM 09/14/2020 9:46 PM Care Teams Soa Integration Architect Relationship Specialty Start Date End Date Anthony Weaver MD PCP - General 07/05/16
--- OUTSIDE RECORDS SUMMARY | 2025-03-16 19:42 | XMS_ITS | Encounter Summary ---
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 Gender Identity Not on file Sexual Orientation Not on file documented as of this encounter Functional Status * Espinoza Fall Risk Question Answer Date of Assessment Author History of Falling 0 09/14/2020 7:00 AM Pau Pride RN Secondary Diagnosis 15 09/14/2020 7:00 AM CD Pau Villalta RN Ambulatory Aids 0 09/14/2020 7:00 AM Pau Pride RN Intravenous Therapy/Heparin/Saline Lock 20 09/14/2020 7:00 AM Pau Pride RN Gait/Transferring 0 09/14/2020 7:00 AM ILEANAT Pau Weaver RN Mental Status 0 09/13/2020 8:00 PM Telly Vargas RN Auto Low/High - if selected proceed to interventions (retired) Low risk-patient immobile/non-ambula tory or 09/14/2020 7:00 AM Pau Pride RN Espinoza Fall Risk Score (Score >= 45 places fall precaution order) 20 09/14/2020 7:00 AM Pau Pride RN * Regan Scale Question Answer Date of Assessment Author Sensory Perceptions 4 09/14/2020 9:00 AM CD T Pau Weaver RN Moisture 4 09/14/2020 9:00 AM Pau Doan RN Activity 3 09/14/2020 9:00 AM Pau Doan RN Mobility 3 09/14/2020 9:00 AM Pau Doan RN Nutrition 4 09/14/2020 9:00 AM Pau Doan RN Friction and Shear 3 09/14/2020 9:00 AM Pau Pride RN Regan Scale Score 21 09/14/2020 9:00 AM Pau Pride RN * Question Answer Date of Assessment Author BP Location Left arm 09/14/2020 12:57 PM Jinny Lam BP Method Automatic 09/14/2020 8:33 AM ILEANAT Jinny Fox MAP (mmHg) 65 09/14/2020 12:57 PM Jinny Lam * Fall Risk Interventions Question Answer Date of Assessment Author All Low Fall Interventions Applied Yes 09/14/2020 11:00 AM Pau Pride RN All Moderate Fall Interventi ons Applied Yes 09/13/2020 8:00 PM Jorge Luis German RN All High Fall Risk Interventions Applied No 09/13/2020 8:00 PM Taryn German RN * B.M.A.T. - Bedside Mobility Assessment Tool for Nurses Question Answer Date of Assessment Author Is patient able to participate in the BMAT? Yes 09/14/2020 7:00 AM Jaquelin Pride RN BMAT Level Level 4 - Green 09/14/2020 7:00 AM CDT Re Pau martinez RN * Integumentary Question Answer Date of Assessment Author Integumentary (WDL) WDL 09/14/2020 9:00 AM Pau Perez RN * Question Answer Date of Assessment Author RLE Edema +3 09/14/2020 9:00 AM Pau Doan RN LLE Edema +3 09/14/2020 9:00 AM CDT Pau Aguillon RN Edema Right lower extremit y;Left lower extremity 09/14/2020 9:00 AM ILEANAT Pau Weaver RN * Question Answer Date of Assessment Author Percent Meal Eaten (%) 100 09/13/2020 10:21 P M CDT Jasmeet Guevara PA * Question Answer Date of Assessment Author BP Location Left arm 09/14/2020 12:57 PM ILEANAT Jinny Ramsey BP Method Automatic 09/14/2020 8:33 AM CDT Jinny Fox * Question Answer Date of Assessment Author Bed In Lowest Position Yes 09/14/2020 11:00 A M Pau Pride RN Bed Wheels Locked Yes 09/14/2020 11:00 AM ILEANAT Pau Weaver RN * Fall Risk Interventions Question Answer Date of Assessment Author All Low Fall Interventions Applied Yes 09/14/2020 11:00 AM Pau Pride RN All Moderate Fall Interventi ons Applied Yes 09/13/2020 8:00 PM ILEANAT Jorge Luis Morales RN All High Fall Risk Interventions Applied No 09/13/2020 8:00 PM ILEANAT Taryn Morales RN * Question Answer Date of Assessment Author Hygiene Bathed/showered with chlorhexidine gluconate (CHG);Leidy care;Back rub;Nail care;Hair washed 09/14/2020 1:00 PM ILEANAT Jinny Peacock * ADL Screening Question Answer Date of Assessment Author Patient's Vision Adequate to Safely Complete Daily Activities Yes 09/13/2020 6:00 PM Pau Pride RN Patient's Judgement Adequate to Safely Complete Daily Activities Yes 09/13/2020 6:00 PM Pau Pride RN Patient's Memory Adequate to Safely Complete Daily Activities Yes 09/13/2020 6:00 PM Pau Pride RN Patient Able to Express Needs/Desires Yes 09/13/2020 6:00 PM Pau Pride RN Dressing Independent 09/13/2020 6:00 PM Pau Doan RN Grooming Independent 09/13/2020 6:00 PM Pau Doan RN Feeding Independent 09/13/2020 6:00 PM JEROME Nettles r, Pau Moss RN Bathing Independent 09/13/2020 6:00 PM Pau Doan RN Toileting Independent 09/13/2020 6:00 PM Pau Doan RN In/Out Bed Independent 09/13/2020 6:00 PM Pau Doan RN Walks in Home Independent 09/13/2020 6:00 PM Pau Elmore RN Weakness of Legs None 09/13/2020 6:00 PM JEROME Ellison lorinPua khan RN Weakness of Arms/Hands None 09/13/2020 6:00 PM Pau Pride RN Hearing - Right Ear Functional 09/13/2020 6:00 PM Pau Perez RN Hearing - Left Ear Functional 09/13/2020 6:00 PM Pau Pride RN Dominant hand? Right 09/13/2020 6:00 PM Pau Schmitt RN Decline in ADLs in last 2 weeks? No 09/13/2020 6:00 PM Pau Pride RN * Therapy Consults Question Answer Date of Assessment Author PT Evaluation Needed 2 09/13/2020 6:00 PM Pau Gatica RN OT Evaluation Needed 2 09/13/2020 6:00 PM Pau Gatica RN SIDE PANEL HANGER Evaluation Needed 2 09/13/2020 6:00 PM Pau Pride RN * Assistive Devices Question Answer Date of Assessment Author Assistive Devices/DME None 09/13/2020 6:00 PM Pau Pride RN * Nutrition Question Answer Date of Assessment Author Feeding Level of Assistance Able to feed self 09/14/2020 11:00 AM Pau Pride RN Appetite Good 09/14/2020 7:00 AM Pau Doan RN documented as of this encounter Mental Status * Question Answer Entry Date Author Neuro (WDL) WDL 09/14/2020 9:00 AM Pau Doan RN documented in this encounter Plan of Treatment Not on file documented as of this encounter Visit Diagnoses Not on filedocumented in this encounter Care Teams Geographical Historian Relationship Specialty Start Date End Date Anthony Weaver MD PCP - General 07/05/16 documented as of this encounter
== END 2025-03-16 14:49 | disposition home or self-care (01) ==
LOC: ANHLAB 14:48
PROVIDERS: PCP Family Medicine; Visit Provider Nurse Practitioner Family
DX: E78.5 Hyperlipidemia, unspecified (principal); R73.01 Impaired fasting glucose; E55.9 Vitamin D deficiency, unspecified; Z12.5 Encounter for screening for malignant neoplasm of prostate; Z79.01 Long term (current) use of anticoagulants
CPT/HCPCS: 36415; 80053; 80061; 82306; 83036; 84153; 84443; 85025